=== PATIENT | female | born 1935 | race Caucasian/White ===

== ENCOUNTER → 2017-03-19 | Outpatient (CLI) | payer MEDICARE ==
--- NOTE | 2017-03-19 10:26 | Diagnostic Imaging Report ---
INDICATION: Left rib pain. FINDINGS: Three views of the left ribs do not show any displaced fractures. There are no effusions or pneumothoraces. IMPRESSION: Negative left ribs. Dictated by: Dictated on workstation # [id number]
--- NOTE | 2017-03-19 10:27 | Diagnostic Imaging Report ---
EXAM: Two views of the left hip. INDICATION: Left hip pain. Fall. FINDINGS: There is no fracture or dislocation seen. There is subchondral sclerosis and mild joint space narrowing. Mild osteophyte formation is seen. No radiopaque foreign body. IMPRESSION: Moderate left hip osteoarthritis. Dictated by: Dictated on workstation # [id number]
== END ==
LOC: RAD 10:02
PROVIDERS: ATTEND Family Medicine
DX: S29.9XXA Unspecified injury of thorax, initial encounter (principal); M16.12 Unilateral primary osteoarthritis, left hip; W01.0XXA Fall on same level from slipping, tripping and stumbling without subsequent striking against object, initial encounter; Y99.8 Other external cause status
CPT/HCPCS: 71100; 73502

== ENCOUNTER 2019-12-04 11:38 | Emergency (ER) | payer MEDICARE ==
[~2019-12-04] VITALS: Ht 162 cm; Wt 52.6 kg
[2019-12-04] MEDS ORDERED: AMLOD/BENAZP (12:20)
--- NOTE | 2019-12-04 12:49 | ED Upper Extremity ---
General Chief Complaint: Upper Extremity Stated Complaint: FALL Nursing Triage Note: pt presents to ed with complaints of r shoulder, r arm pain, and mid back pain Nursing Sepsis Screen: No Definite Risk History of Present Illness Date Seen by Provider: Dec 04, 2019 Time Seen by Provider: 12:20 Initial Comments 84 year old female presents after a fall this morning onto her right shoulder and arm. She states that her ankle gives out, on occasion, and causes fall. She had no head injury or loss of consciousness. She is mainly complaining of right proximal shoulder pain and right posterior mid rib pain. She put ice on her shoulder right after the injury, no medication was taken. She has a small superficial abrasion to her right elbow that occurred approximately 3 or 4 days ago when she scratches on a wooden table. She had a tetanus shot in the last 2 years. Onset: this morning Pain/Injury Location: right shoulder, right other (Right posterior ribs) Method of Injury: fell Allergies and Home Medications Allergies Coded Allergies: aspirin (Verified Allergy, Unknown, 12/04/19) Patient Home Medication List Home Medication List Reviewed: Yes Review of Systems Constitutional: no symptoms reported, see HPI Respiratory: see HPI, other (right ribs) Musculoskeletal: see HPI, joint pain (and right shoulder) All Other Systems Reviewed Negative Unless Noted: Yes Past Khzjmss-Dnypxt-Qtcwcn Hx Past Med/Social Hx: Reviewed Nursing Past Med/Soc Hx Patient Social History Alcohol Use: Denies Use Recreational Drug Use: No Smoking Status: Never a Smoker Recent Foreign Travel: No Contact w/Someone Who Travel: No Recent Infectious Disease Expo: No Physical Abuse: No Sexual Abuse: No Mistreated: No Fear: No Physical Exam Vital Signs Vital Signs - First Documented 12/04/19 12:10 Temp 36.8 Pulse 87 Resp 20 B/P (MAP) 162/99 (120) Pulse Ox 98 Capillary Refill : Less Than 3 Seconds Height, Weight, BMI Height: '" Weight: lbs. oz. kg; 20.00 BMI Method: General Appearance: WD/WN, no apparent distress HEENT: PERRL/EOMI, normal ENT inspection, TMs normal, pharynx normal Neck: non-tender, full range of motion, supple, normal inspection Cardiovascular: normal peripheral pulses, regular rate, rhythm, no murmur Respiratory: lungs clear, normal breath sounds, other (tenderness to palpation in the right posterior chest over the mid ribs, no crepitus) Gastrointestinal: normal bowel sounds, non tender, soft Back: normal inspection, no CVA tenderness, no vertebral tenderness Shoulder: asymmetry; No ecchymosis; limited ROM, pain, soft tissue tenderness, swelling Elbow/Forearm: normal inspection, non-tender, no evidence of injury, normal ROM, Right Wrist: Yes normal inspection, Yes non-tender, Yes no evidence of injury, Yes normal ROM Hand: normal inspection, non-tender, no evidence of injury, normal ROM, Right Neurologic/Psychiatric: no motor/sensory deficits, alert, normal mood/affect, oriented x 3 Skin: normal color, warm/dry Progress/Results/Core Measures Results/Orders My Orders Orders - MALU RAGLAND Ribs, Right 2-3 Views (12/04/19 12:25) Shoulder, Right, 3 Views (12/04/19 12:25) Humerus, Right, 2 Views (12/04/19 12:25) Vital Signs/I&O 12/04/19 12:10 Temp 36.8 Pulse 87 Resp 20 B/P (MAP) 162/99 (120) Pulse Ox 98 Blood Pressure Mean: 120 Progress Progress Note : Time: 12:20 Progress Note Patient seen and evaluated, denies need for pain medication. Will obtain x-rays and re-evaluate. 1300 xrays results reviewed. Spoke to Dr. Reyna by phone, agreed with sling and conservative measures. 1320 Sling applied and ice to right shoulder. Discharge instructions and return precautions reviewed with the patient. Spoke to her daughter by phone and informed of findings on x-ray and plan of care. Diagnostic Imaging Diagonstic Imaging: Xray Plain Films/CT/US/NM/MRI: other (humerus) Comments NAME: JERMAINE BRITT [facility] REC#: [id number] PT STATUS: REG ER : 1935 PHYSICIAN: MALU RAGLAND ADMIT DATE: 12/04/19/ER Draft Date of Exam:12/04/19 HUMERUS, RIGHT, 2 VIEWS CLINICAL INDICATION: Patient status post fall with right-sided back pain and right arm pain. EXAMS: 1: X-ray of the right humerus, 3 views. 2: X-ray of the right shoulder, 3 views including scapular Y view. COMPARISON: None. FINDINGS: There is a mildly impacted fracture of the proximal humeral neck with slight anterior apex angulation and roughly 1/2 shaft width of anterior displacement of the distal fracture fragment. There is slight inferior position of the humeral head in relation to the glenoid which may be related to pseudosubluxation from joint effusion. The remainder of the right humerus and right shoulder shows no acute fracture or dislocation. IMPRESSION: 1: X-ray of the right shoulder and right humerus show an impacted displaced fracture of the proximal left humeral neck region. 2: Suspected pseudosubluxation of the right glenohumeral joint which may be related to joint effusion. Dictated on workstation # [id number] Dict: 12/04/19 1249 Trans: 12/04/19 1256 CVB [id number] Interpreted by: MARISSA NIEVES MD Electronically signed by: Reviewed: Reviewed by Sd Diagonstic Imaging: Xray Plain Films/CT/US/NM/MRI: other (right ribs) Comments NAME: JERMAINE BRITT [facility] REC#: [id number] PT STATUS: REG ER : 1935 PHYSICIAN: MALU RAGLAND ADMIT DATE: 12/04/19/ER Signed Date of Exam:12/04/19 RIBS, RIGHT 2-3 VIEWS INDICATION: Right-sided pain after fall. COMPARISON: Right shoulder radiograph performed concurrently. TECHNIQUE: 3 views of the right ribs were obtained. FINDINGS AND IMPRESSION: 1. No right-sided pneumothorax, pleural effusion or pulmonary consolidation. 2. Questionable nondisplaced fractures of the anterior aspect of the right 7th and 8th ribs near the chondral cartilage. 3. Please see right shoulder radiograph report for details of the acute humeral fracture. Dictated by: Dictated on workstation # [id number] Dict: 12/04/19 1248 Trans: 12/04/19 1314 CVB [id number] Interpreted by: YOBANI ANDERSON MD Electronically signed by: YOBANI ANDERSON MD 12/04/19 1314 Diagonstic Imaging: Xray Plain Films/CT/US/NM/MRI: other (shoulder) Comments NAME: LORENZAJERMAINE [facility] REC#: [id number] PT STATUS: REG ER : 1935 PHYSICIAN: MALU RAGLAND ADMIT DATE: 12/04/19/ER Signed Date of Exam:12/04/19 SHOULDER, RIGHT, 3 VIEWS CLINICAL INDICATION: Patient status post fall with right-sided back pain and right arm pain. EXAMS: 1: X-ray of the right humerus, 3 views. 2: X-ray of the right shoulder, 3 views including scapular Y view. COMPARISON: None. FINDINGS: There is a mildly impacted fracture of the proximal humeral neck with slight anterior apex angulation and roughly 1/2 shaft width of anterior displacement of the distal fracture fragment. There is slight inferior position of the humeral head in relation to the glenoid which may be related to pseudosubluxation from joint effusion. The remainder of the right humerus and right shoulder shows no acute fracture or dislocation. IMPRESSION: 1: X-ray of the right shoulder and right humerus show an impacted displaced fracture of the proximal left humeral neck region. 2: Suspected pseudosubluxation of the right glenohumeral joint which may be related to joint effusion. Dictated by: Dictated on workstation # [id number] Dict: 12/04/19 1248 Trans: 12/04/19 1301 [id number] Interpreted by: MARISSA NIEVES MD Electronically signed by: MARISSA NIEVES MD 12/04/19 1301 Reviewed: Reviewed by Me Departure Impression Primary Impression: Right rib fracture Qualified Codes: S22.41XA - Multiple fractures of ribs, right side, initial encounter for closed fracture Additional Impression: Fracture of neck of right humerus Qualified Codes: S42.211A - Unspecified displaced fracture of surgical neck of right humerus, initial encounter for closed fracture Disposition: 01 HOME, SELF-CARE Condition: Improved Departure-Patient Inst. Decision time for Depature: 13:30 Referrals: PASTORA HEWITT DO (PCP/Family) Primary Care Physician Patient Instructions: How to Use a Shoulder Sling, Rib Fracture (DC), Shoulder Fracture (DC) Add. Discharge Instructions: You have an appt with Dr. Chamorro at 11:00 on Wednesday12/11/19. Please arrive at the office at 10:30 for paperwork and followup xrays. Use the sling at all times, may remove to shower and gentle Range of Motion to elbow/hand. You may alternate between Tylenol 650 mg and ibuprofen 600 mg every 4 hours for pain. Use the stronger pain prescription, if this is not controlling your pain. Use ice to your right shoulder for 20 minutes every 2 hours while awake. Warm, moist compressions to right ribs. Cough, turn and deep breathe, 10 times every hour. Follow-up with Dr. Gorman if symptoms are not improving or worsen. Return to emergency department for new, urgent health care needs. All discharge instructions reviewed with patient and/or family. Voiced understanding. Scripts Tramadol HCl (Tramadol HCl) 50 Mg Tablet 50 MG PO Q8H PRN for PAIN, #20 TAB 0 Refills Prov: MALU RAGLAND 12/04/19 Copy Copies To 1: PASTORA HEWITT DO; AUSTEN CHAMORRO MD, AMY ARNP Dec 04, 2019 12:49
--- NOTE | 2019-12-04 12:57 | Diagnostic Imaging Report ---
CLINICAL INDICATION: Patient status post fall with right-sided back pain and right arm pain. EXAMS: 1: X-ray of the right humerus, 3 views. 2: X-ray of the right shoulder, 3 views including scapular Y view. COMPARISON: None. FINDINGS: There is a mildly impacted fracture of the proximal humeral neck with slight anterior apex angulation and roughly 1/2 shaft width of anterior displacement of the distal fracture fragment. There is slight inferior position of the humeral head in relation to the glenoid which may be related to pseudosubluxation from joint effusion. The remainder of the right humerus and right shoulder shows no acute fracture or dislocation. IMPRESSION: 1: X-ray of the right shoulder and right humerus show an impacted displaced fracture of the proximal left humeral neck region. 2: Suspected pseudosubluxation of the right glenohumeral joint which may be related to joint effusion. Dictated by: Dictated on workstation # [id number]
[2019-12-04] MEDS ORDERED: TRM50T PO (13:43)
[2019-12-04 13:44] VITALS: BP 136/76
== END 2019-12-04 13:44 | disposition home or self-care (01) ==
LOC: EDUNIT# 11:38 → ER 11:41
DX: S42.211A Unspecified displaced fracture of surgical neck of right humerus, initial encounter for closed fracture (principal); S22.41XA Multiple fractures of ribs, right side, initial encounter for closed fracture; W19.XXXA Unspecified fall, initial encounter
CPT/HCPCS: 71100; 73030; 73060

== ENCOUNTER → 2019-12-11 | Outpatient (CLI) | payer MEDICARE ==
[~2019-12-11] MED LIST: AMLOD/BENAZP; TRM50T PO
--- NOTE | 2019-12-11 11:18 | Diagnostic Imaging Report ---
HISTORY: Proximal right humerus fracture. TECHNIQUE: Three views of the right shoulder. COMPARISON: 12/04/2019. FINDINGS: Redemonstrated is an impacted, mildly displaced fracture of the right humeral neck. There does appear to be some sclerosis and healing changes. There is mild inferior subluxation of the humeral head. There is cortical irregularity of the glenoid as well. There are moderate degenerative changes in the right acromioclavicular joint; however, the alignment at the undersurface appears normal. There is chronic scarring in the right lung. IMPRESSION: 1. Impacted fracture of the right humeral neck with interval healing changes and stable alignment. 2. Mild inferior subluxation of the right humeral head which may represent joint effusion. 3. Cortical irregularity at the glenoid, concerning for nondisplaced fracture. Dictated by: Dictated on workstation # [id number]
== END ==
LOC: ORTHO 10:47
PROVIDERS: ATTEND Orthopaedic Surgery
DX: S42.201A Unspecified fracture of upper end of right humerus, initial encounter for closed fracture (principal); W19.XXXA Unspecified fall, initial encounter
CPT/HCPCS: 73030

== ENCOUNTER → 2019-12-25 | Outpatient (CLI) | payer MEDICARE ==
--- NOTE | 2019-12-25 10:22 | Diagnostic Imaging Report ---
INDICATION: Humeral fracture followup. TECHNIQUE/COMPARISON: AP and transscapular views of the right shoulder were obtained and compared to 12/11/2019. FINDINGS: The subacute fracture of the humeral head and neck is unchanged in alignment compared to the prior study. There is no dislocation. The AC joint appears intact. IMPRESSION: Stable appearance of the subacute right humeral head and neck fracture without change from 12/11/2019. Dictated by: Dictated on workstation # [id number]
== END ==
LOC: ORTHO 09:43
PROVIDERS: ATTEND Orthopaedic Surgery
DX: S42.221D 2-part displaced fracture of surgical neck of right humerus, subsequent encounter for fracture with routine healing (principal); X58.XXXD Exposure to other specified factors, subsequent encounter
CPT/HCPCS: 73030

== ENCOUNTER → 2020-01-08 | Outpatient (CLI) | payer MEDICARE ==
--- NOTE | 2020-01-08 11:16 | Diagnostic Imaging Report ---
EXAMINATION: Right shoulder radiographs, 2 views. COMPARISON: December 25, 2019. HISTORY: 84-year-old female, followup right proximal humerus fracture. FINDINGS: There is a redemonstrated fracture at the level of the humeral neck. There is some irregularity in the region of the greater tuberosity. The distal fracture fragment appears increasingly anteriorly displaced based on the lateral view assessment. Displacement anteriorly is measured at approximately 7 mm. There is unchanged fracture override. It is difficult to assess humeral head positioning relative to the glenoid although the humeral head appears to be potentially abnormally positioned based on frontal view analysis. The acromioclavicular joint is normally aligned. IMPRESSION: 1. Redemonstrated fracture of the right humeral neck with increasingly anterior displaced distal fracture fragment currently measuring approximately 7 mm. 2. The humeral head alignment relative to the glenoid is not well assessed on this study although is potentially abnormally positioned. This would be better evaluated with CT right shoulder without contrast. 3. Irregularity of the greater tuberosity likely relating to sequela of fracture without clear fracture displacement at this location. Dictated by: Dictated on workstation # [id number]
== END ==
LOC: ORTHO 10:15
PROVIDERS: ATTEND Orthopaedic Surgery
DX: S42.221A 2-part displaced fracture of surgical neck of right humerus, initial encounter for closed fracture (principal); X58.XXXA Exposure to other specified factors, initial encounter
CPT/HCPCS: 73030

== ENCOUNTER → 2020-01-31 | Outpatient (CLI) | payer MEDICARE ==
--- NOTE | 2020-01-31 10:57 | Diagnostic Imaging Report ---
INDICATION: Right humeral fracture AP and transscapular views of the right shoulder are obtained with comparison made to study of 01/08/2020. There is no significant change in overall appearance of proximal right humerus with subacute impacted neck fracture. Fracture line is not well visualized suggesting partial healing. Angulation and degree of displacement have not significantly changed. Glenohumeral joint space is not well evaluated. IMPRESSION: Stable overall appearance of impacted right proximal humeral fracture. No definite dislocation or adverse change is seen. Dictated by: Dictated on workstation # [id number]
== END ==
LOC: ORTHO 10:11
PROVIDERS: ATTEND Orthopaedic Surgery
DX: S42.221D 2-part displaced fracture of surgical neck of right humerus, subsequent encounter for fracture with routine healing (principal); X58.XXXD Exposure to other specified factors, subsequent encounter
CPT/HCPCS: 73030

== ENCOUNTER → 2020-11-04 | Outpatient (CLI) | payer MEDICARE ==
--- NOTE | 2020-11-04 14:53 | Diagnostic Imaging Report ---
INDICATION: Neck pain. EXAMINATION: Cervical spine. FINDINGS: AP and lateral views of the cervical spine show normal vertebral alignment. There is no fracture or prevertebral soft tissue swelling. The disc spaces appear well-preserved. IMPRESSION: Unremarkable cervical spine. Dictated by: Dictated on workstation # [id number]
== END ==
LOC: RAD 12:03
PROVIDERS: ATTEND Family Medicine
DX: M54.2 Cervicalgia (principal)
CPT/HCPCS: 72040

== ENCOUNTER 2020-11-28 09:44 | Outpatient (RCR) | payer MEDICARE ==
[2020-12-02] MEDS ORDERED: AMLO1CAP4 PO (13:19)
[2020-12-02] MEDS ORDERED: ACET325T38 PO (13:19)
[2020-12-04] MEDS ORDERED: PHENYLEPHRINE INJECTION 10 MG in NS (IVPB) 250 ML IV SCH (21:00)
== END 2020-12-10 08:00 | disposition home or self-care (01) ==
PROVIDERS: ATTEND Family Medicine
DX: M54.2 Cervicalgia (principal); R29.898 Other symptoms and signs involving the musculoskeletal system

== ENCOUNTER 2020-11-30 01:18 | Inpatient (IN) | payer MEDICARE ==
[~2020-11-30] VITALS: Ht 165 cm; Wt 57.1 kg
--- NOTE | 2020-11-30 02:04 | ED Respiratory ---
General Chief Complaint: Respiratory Problems Stated Complaint: WEAK,SOB Source: patient, family Exam Limitations: no limitations History of Present Illness Date Seen by Provider: Nov 30, 2020 Time Seen by Provider: 01:47 Initial Comments Patient is an 85-year-old female who presents to the emergency department today with a chief complaint of shortness of breath. Patient's daughter is at the bedside and states that her mother has been short of breath for several days probably at least 2 and she states that she was finally able to convince her to come to the emergency department this evening. She has had a little bit of increased overall weakness. She has not been Covid vaccinated or had a flu vaccine. Patient denies any chronic medical illnesses. She has had no sick contacts. She complains of a little suprapubic tenderness more so on the right of the lower abdomen. She denies dysuria, urgency or frequency. She states that she has not had any nausea, vomiting or dark tarry stools. Her shortness of breath worsened today at about 3 PM. She is not on home oxygen. She denies any chest pain or pressure or tightness. She states she has been so weak that she thought she might fall. Especially when she is bending over. She denies swelling in her lower extremities however on physical exam the patient has 2+ bilateral lower extremity edema. Patient has no history of atrial fibrillation that she is aware of. All other review of systems reviewed and negative except as stated above. Timing/Duration: getting worse (2 to 3 days) Severity: moderate Modifying Factors: Worse With Activity Associated Symptoms: denies symptoms Allergies and Home Medications Allergies Coded Allergies: aspirin (Verified Allergy, Unknown, 12/04/19) Home Medications Tramadol HCl 50 Mg Tablet, 50 MG PO Q8H PRN for PAIN Prescribed by: MALU RAGLAND on 12/04/19 6553 Patient Home Medication List Home Medication List Reviewed: Yes Review of Systems Review of Systems Constitutional: see HPI EENTM: no symptoms reported Respiratory: No cough, No phlegm; short of breath Cardiovascular: no symptoms reported Gastrointestinal: no symptoms reported Genitourinary: no symptoms reported Musculoskeletal: no symptoms reported Skin: no symptoms reported Psychiatric/Neurological: No Symptoms Reported All Other Systems Reviewed Negative Unless Noted: Yes Physical Exam Vital Signs - First Documented 11/30/20 01:28 Temp 36.0 Pulse 111 Resp 24 B/P (MAP) 146/108 (121) Pulse Ox 77 O2 Delivery Room Air Capillary Refill : Height: '" Weight: lbs. oz. kg; 20.00 BMI Method: General Appearance: WD/WN, no apparent distress Eyes: Bilateral Eye Normal Inspection, Bilateral Eye PERRL, Bilateral Eye EOMI HEENT: PERRL/EOMI Neck: full range of motion Respiratory: no respiratory distress, no accessory muscle use, rales, rhonchi (Rhonchi bilateral bases), other (Pectus deformity of the chest wall) Cardiovascular: tachycardia, irregularly irregular Gastrointestinal: soft, tenderness (Very slight tenderness to the right of suprapubic) Extremities: normal range of motion, pedal edema (2+ pedal edema bilateral lower extremities) Neurologic/Psychiatric: alert, normal mood/affect, oriented x 3 Skin: normal color, warm/dry Progress/Results/Core Measures Suspected Sepsis SIRS Temperature: Pulse: Respiratory Rate: Laboratory Tests 11/30/20 02:30: White Blood Count 10.9 Blood Pressure / Mean: Laboratory Tests 11/30/20 02:30: Creatinine 0.57L, Platelet Count 167 Results/Orders Lab Results Laboratory Tests Test 11/30/20 02:30 Range/Units White Blood Count 10.9 4.3-11.0 10^3/uL Red Blood Count 4.45 3.80-5.11 10^6/uL Hemoglobin 13.8 11.5-16.0 g/dL Hematocrit 42 35-52 % Mean Corpuscular Volume 94 80-99 fL Mean Corpuscular Hemoglobin 31 25-34 pg Mean Corpuscular Hemoglobin Concent 33 32-36 g/dL Red Cell Distribution Width 13.8 10.0-14.5 % Platelet Count 167 130-400 10^3/uL Mean Platelet Volume 12.3 H 9.0-12.2 fL Immature Granulocyte % (Auto) 1 % Neutrophils (%) (Auto) 89 H 42-75 % Lymphocytes (%) (Auto) 3 L 12-44 % Monocytes (%) (Auto) 8 0-12 % Eosinophils (%) (Auto) 0 0-10 % Basophils (%) (Auto) 0 0-10 % Neutrophils # (Auto) 9.6 H 1.8-7.8 10^3/uL Lymphocytes # (Auto) 0.3 L 1.0-4.0 10^3/uL Monocytes # (Auto) 0.9 0.0-1.0 10^3/uL Eosinophils # (Auto) 0.0 0.0-0.3 10^3/uL Basophils # (Auto) 0.0 0.0-0.1 10^3/uL Immature Granulocyte # (Auto) 0.1 0.0-0.1 10^3/uL Sodium Level 128 L 135-145 MMOL/L Potassium Level 4.0 3.6-5.0 MMOL/L Chloride Level 91 L 98-107 MMOL/L Carbon Dioxide Level 26 21-32 MMOL/L Anion Gap 11 5-14 MMOL/L Blood Urea Nitrogen 7 7-18 MG/DL Creatinine 0.57 L 0.60-1.30 MG/DL Estimat Glomerular Filtration Rate > 60 BUN/Creatinine Ratio 12 Glucose Level 171 H 70-105 MG/DL Calcium Level 8.7 8.5-10.1 MG/DL Total Creatine Kinase 115 29-168 U/L Creatine Kinase MB 8.6 *H <6.6 NG/ML Troponin I 0.039 H <0.028 NG/ML B-Type Natriuretic Peptide 1129.4 H <100.0 PG/ML My Orders Orders - ELIZABETH DALAL MD Ed Iv/Invasive Line Start (11/30/20 02:05) BNP (11/30/20 02:05) Cbc With Automated Diff (11/30/20 02:05) Basic Metabolic Panel (11/30/20 02:05) Troponin I (11/30/20 02:05) Creatine Kinase (11/30/20 02:05) Creatine Kinase Mb (11/30/20 02:05) Ua Culture If Indicated (11/30/20 02:05) Chest 1 View, Ap/Pa Only (11/30/20 02:05) Ekg Tracing (11/30/20 02:05) Manual Differential (11/30/20 02:30) Ekg Tracing (11/30/20 02:57) Furosemide Injection (Lasix Injection) (11/30/20 03:30) Vital Signs/I&O 11/30/20 01:28 Temp 36.0 Pulse 111 Resp 24 B/P (MAP) 146/108 (121) Pulse Ox 77 O2 Delivery Room Air Capillary Refill : ECG Initial ECG Impression Date: Nov 30, 2020 Initial ECG Impression Time: 02:12 Initial ECG Rate: 120 Initial ECG Rhythm: A Fib/Flutter Initial ECG Impression: Atrial Fibrillation w/RVR Comment Ectopy noted with PVCs and supraventricular complexes, LVH is noted, prolonged QTC at 515 EKG : EKG Time: 02:59 Rate: 95 Rhythm: Intervals: QT (496) ECG Comparisson: Unchanged ECG Impression: Atrial Fibrillation (Wandering atrial pacemaker versus sinus rhythm with multiple PVCs and supraventricular premature contractions) Diagnostic Imaging Diagonstic Imaging: Xray Plain Films/CT/US/NM/MRI: chest Comments Significant cardiomegaly noted on chest x-ray with increased pulmonary vascular congestion Critical Care Note Critical Care Start Time: 01:47 Stop Time: 02:47 Total Time (minutes) 1 hour critical care time in the evaluation and management of this patient with hypoxia, tachycardia, new onset congestive heart failure. Time includes review and interpretation of laboratory studies. Management of congestive failure with Lasix. Management of hypoxia with oxygen supplementation. Discussion with hospitalist attending as well as cardiology. Departure Communication (Admissions) Time/Spoke to Admitting Phy: 03:[address] Maya who accepts the patient for admission Time/Spoke to Consulting Phy: 03:[address] Ward who is agreeable with 20 mg of Lasix and would like an echocardiogram done this morning Impression Primary Impression: New onset of congestive heart failure Additional Impression: Elevated troponin Disposition: 09 ADMITTED INPATIENT Condition: Stable Admissions Decision to Admit Reason: Admit from ER (General) Decision to Admit/Date: Nov 30, 2020 Time/Decision to Admit Time: 03:39 Departure-Patient Inst. Referrals: PASTORA HEWITT DO (PCP/Family) Primary Care Physician Copy Copies To 1: PASTORA HEWITT KATHRYN M MD Nov 30, 2020 02:04
[2020-11-30 02:45] LABS: BASOPHILS % (AUTO) 0 % (0-10); EOSINOPHILS % (AUTO) 0 % (0-10); HEMATOCRIT 42 % (35-52); HEMOGLOBIN 13.8 g/dL (11.5-16.0); LYMPHOCYTES # (AUTO) 0.3 10^3/uL (1.0-4.0); LYMPHOCYTES % (AUTO) 3 % (12-44); MEAN CORPUSCULAR HEMOGLOBIN 31 pg (25-34); MEAN CORPUSCULAR HGB CONC 33 g/dL (32-36); MEAN CORPUSCULAR VOLUME 94 fL (80-99); MEAN PLATELET VOLUME 12.3 fL (9.0-12.2); MONOCYTES # (AUTO) 0.9 10^3/uL (0.0-1.0); MONOCYTES % (AUTO) 8 % (0-12); NEUTROPHILS # (AUTO) 9.6 10^3/uL (1.8-7.8); NEUTROPHILS % (AUTO) 89 % (42-75); PLATELET COUNT 167 10^3/uL (130-400); WHITE BLOOD COUNT 10.9 10^3/uL (4.3-11.0)
[2020-11-30 03:01] LABS: CHLORIDE 91 MMOL/L (98-107); SODIUM 128 MMOL/L (135-145)
[2020-11-30 03:02] LABS: CALCIUM 8.7 MG/DL (8.5-10.1)
[2020-11-30 03:03] LABS: GLUCOSE 171 MG/DL (70-105)
[2020-11-30 03:04] LABS: CARBON DIOXIDE 26 MMOL/L (21-32)
[2020-11-30 03:07] LABS: CREATININE SERUM 0.57 MG/DL (0.60-1.30); GFR ESTIMATED > 60
[2020-11-30 03:08] LABS: BUN/CREATININE RATIO 12
[2020-11-30 03:09] LABS: CREATINE KINASE 115 U/L (29-168)
[2020-11-30 03:24] LABS: CREATINE KINASE MB 8.6 NG/ML (<6.6)
[2020-11-30] MEDS ORDERED: FUROSEMIDE 40 MG/4 ML INJ (LASIX) IVP ONE (03:30)
[2020-11-30 03:39] LABS: ANISOCYTOSIS SLIGHT; BAND NEUTROPHILS 2 %; LYMPHOCYTES % (MANUAL) 7 %; MICROCYTOSIS SLIGHT; MONOCYTES % (MANUAL) 6 %; NEUTROPHILS % (MANUAL) 85 %
[2020-11-30 04:41] LABS: BILIRUBIN,URINE NEGATIVE (NEGATIVE); CLARITY,URINE SL CLOUDY; COLOR,URINE YELLOW; GLUCOSE, URINE (UA) 1+ (NEGATIVE); KETONES,URINE NEGATIVE (NEGATIVE); LEUKOCYTE ESTERASE ,URINE TRACE (NEGATIVE); NITRITE,URINE NEGATIVE (NEGATIVE); PROTEIN,URINE NEGATIVE (NEGATIVE)
[2020-11-30 04:53] LABS: BACTERIA,URINE NEGATIVE /HPF; HYALINE CASTS, URINE RARE /LPF; RBC,URINE 0-2 /HPF
[2020-11-30 06:06] VITALS: BP 146/108
--- NOTE | 2020-11-30 08:13 | Diagnostic Imaging Report ---
INDICATION: Shortness of air, cough and congestion for 3 days. COMPARISON STUDIES: Rib films from 12/04/2019. FINDINGS: Portable upright view of the chest demonstrates severe cardiomegaly with pulmonary congestion and some edema. No significant effusions are seen. IMPRESSION: Congestive heart failure. Dictated by: Dictated on workstation # [id number]
[2020-11-30] MEDS: FUROSEMIDE 40 MG/4 ML INJ (LASIX) IVP SCH (08:18)
--- NOTE | 2020-11-30 11:25 | History & Physical-Hospitalist ---
History of Present Illness HPI/Chief Complaint Pt is an 85yoCF with a PMH of HTN who presented to the ER due to shortness of breath. She states she has been short of breath for a while but tries to not go to the doctor. Last night her daughter visited her and noticed how short of breath she was and brought her to the ER for evlauation. She was found to be quite hypoxic on arrivla with saats in the 70s. She was found to be in heart failure on CXR but has no past medical history of this. She was admitted to the ICU and was given lasix and states she is feeling much better today. She states she has been peeing a lot and feels better. 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 She is quite thin and she states she last 30 lbs a few years ago and has not been able to put it back on. Source: patient Date Seen 11/30/20 Time Seen by a Provider: 11:21 Attending Physician Minerva Yusuf MD PCP Guero Vilchis DO Referring Physician Date of Admission Nov 30, 2020 at 03:29 Home Medications & Allergies Home Medications Reviewed patient Home Medication Reconciliation performed by pharmacy medication reconciliations biomedical equipment technician and/or nursing. Patients Allergies have been reviewed. Allergies Allergies Coded Allergies aspirin (Verified Allergy, Unknown, 12/04/19) Past Vofgwgz-Seynbv-Bnnvlm Hx Past Med/Social Hx: Reviewed Nursing Past Med/Soc Hx Patient Social History Employed/Student: retired Alcohol Use: Denies Use Recreational Drug Use: No Recent Foreign Travel: No Contact w/other who traveled: No Recent Hopitalizations: No Recent Infectious Disease Expo: No Immunizations Up To Date Tetanus Booster (TDap): Unknown Pediatric: No Seasonal Allergies Seasonal Allergies: No Past Medical History Cardiac: Hypertension History of Blood Disorders: No Family History Reviewed Nursing Family Hx Review of Systems Constitutional: No chills, No fever Respiratory: cough, short of breath Cardiovascular: No chest pain; edema; No Hx of Intervention, No palpitations Gastrointestinal: No abdominal pain, No constipation, No diarrhea, No nausea, No vomiting Genitourinary: No discharge, No dysuria; frequency (since lasix ) Musculoskeletal: no symptoms reported Skin: no symptoms reported Psychiatric/Neurological: No Symptoms Reported Physical Exam Physical Exam Vital Signs Vital Signs - First Documented 11/30/20 11/30/20 11/30/20 01:28 05:15 06:06 Temp 36.0 Pulse 111 Resp 24 B/P (MAP) 146/108 (121) Pulse Ox 77 O2 Delivery Room Air O2 Flow Rate 4.00 FiO2 28 Capillary Refill : Less Than 3 Seconds Height, Weight, BMI Height: '" Weight: lbs. oz. kg; 18.36 BMI Method: General Appearance: No Apparent Distress, Thin (frail and cachetic) HEENT: PERRL/EOMI, Moist Mucous Membranes; No Scleral Icterus (L), No Scleral Icterus (R) Neck: Normal Inspection, Supple Respiratory: No Accessory Muscle Use, Decreased Breath Sounds; No Wheezing; Other (on 2lpm) Cardiovascular: Regular Rate, Rhythm, No Murmur Gastrointestinal: Normal Bowel Sounds, Non Tender, Soft Extremity: Normal Capillary Refill, No Calf Tenderness, Swelling (2+ pitting edema to just below knees) Neurologic/Psychiatric: Alert, Oriented x3, Normal Mood/Affect Skin: Normal Color, Warm/Dry Results Results/Procedures Labs Laboratory Tests 11/30/20 02:30 Patient resulted labs reviewed. Imaging: Reviewed Imaging Report Imaging [facility] [place] NAME: JERMAINE [facility] REC#: [id number] PT STATUS: ADM IN : 1935 PHYSICIAN: ELIZABETH DALAL MD ADMIT DATE: 11/30/20/ICU Signed Date of Exam:11/30/20 CHEST 1 VIEW, AP/PA ONLY INDICATION: Shortness of air, cough and congestion for 3 days. COMPARISON STUDIES: Rib films from 12/04/2019. FINDINGS: Portable upright view of the chest demonstrates severe cardiomegaly with pulmonary congestion and some edema. No significant effusions are seen. IMPRESSION: Congestive heart failure. Dictated by: Dictated on workstation # [id number] Dict: 11/30/20 0809 Trans: 11/30/20 0949 [facility] [id number] Interpreted by: ALEXANDRA DELGADO MD Electronically signed by: ALEXANDRA DELGADO MD 11/30/20 0949 Assessment/Plan Admission Diagnosis Acute hypoxic respiratory failure Acutely decompensated heart failure HTN new onset atrial fibrillation NSTEMI- Type II Cardiology consulted I titrated down to 1 lpm NC Echo ordered Continue lasix Monitor on telemetry ?rose's palsy Reports "left cheek fell and swelling" since last week, saw Dr Vilchis who recommended "exercise" Hardly noticeable asymetric features OT per patient request DVT ppx: Lovenox Admission Status: Inpatient Order (span 2 midnights) Reason for Inpatient Admission: see above Diagnosis/Problems Diagnosis/Problems (1) Acute respiratory failure Qualifiers: Respiratory failure complication: hypoxia Qualified Codes: J96.01 - Acute respiratory failure with hypoxia (2) Essential (primary) hypertension (3) NSTEMI (non-ST elevated myocardial infarction) (4) Atrial fibrillation Qualifiers: Atrial fibrillation type: paroxysmal Qualified Codes: I48.0 - Paroxysmal atrial fibrillation (5) Cachexia (6) New onset of congestive heart failure Status: Acute MINERVA YUSUF MD Nov 30, 2020 11:25
--- NOTE | 2020-11-30 11:52 | Physical Therapy Evaluation ---
PT Evaluation-General Medical Diagnosis Admission Date Nov 30, 2020 at 03:29 Medical Diagnosis: Elevated troponin I Onset Date: Nov 30, 2020 Therapy Diagnosis Therapy Diagnosis: Declined mobility Precautions Precautions/Isolations: Fall Prevention, Standard Precautions Weight Bear Status Right Lower Extremity: Right Weight Bearing/Tolerated Left Lower Extremity: Left Weight Bearing/Tolerated Referral Physician: Dr. Yusuf Reason for Referral: Evaluation/Treatment Medical History Additional Medical History Scoliosis with severe kyphosis Current History Pt admitted through ED due to dyspnea and elevated troponin I. Reviewed History: Yes Social History Home: Single Level Current Living Status: Children Entry Into Home: Stairs Without Railing PT Steps Into Home: 3 Prior Prior Level of Function SCALE: Activities may be completed with or without assistive devices. 6-Gtcsctfrsm-mbgnbjv completes the activity by him/herself with no assistance from a helper. 5-Set-up or Clean-up Assistance-helper sets up or cleans up; patient completes activity. Patterson assists only prior to or following the activity. 4-Supervision or Touching Assistance-helper provides verbal cues and/or touching/steadying and/or contact guard assistance as patient completes activity. Assistance may be provided throughout the activity or intermittently. 3-Partial/Moderate Assistance-helper does LESS THAN HALF the effort. Patterson lifts, holds or supports trunk or limbs, but provides less than half the effort. 2-Substantial/Maximal Assistance-helper does MORE THAN HALF the effort. Patterson lifts or holds trunk or limbs and provides more than half the effort. 4-Rmzjdqwcw-zhzzxt does ALL the effort. Patient does none of the effort to complete the activity. Or, the assistance of 2 or more helpers is required for the patient to complete the activity. If activity was not attempted, code reason: 7-Patient Refused. 9-Not Applicable-not attempted and the patient did not perform the activity before the current illness, exacerbation or injury. 10-Not Attempted due to Environmental Limitations-(lack of equipment, weather restraints, etc.). 88-Not Attempted due to Medical Conditions or Safety Concerns. Bed Mobility: 6 Transfers (B,C,W/C): 6 Gait: 6 Stairs: 6 Indoor Mobility (Ambulation): Independent Stairs: Independent Prior Devices Use: Walker PT Evaluation-Current Subjective No pain reported. She notes that she has been working with PT on cervical and thoracic postural training. Pt/Family Goals Return home. Objective Patient Orientation: Person, Place, Time, Situation Attachments: Oxygen ROM/Strength ROM Upper Extremities WFL ROM Lower Extremities WFL Strength Upper Extremities WFL Strength Lower Extremities WFL Neuromuscular (Tone, Coordination, Reflexes) Intact (B) LE sensation and reflexes. Sensory Vision: Functional Hearing: Functional Sensation Right Upper Extremit: Intact Sensation Left Upper Extremity: Intact Sensation Right Lower Extremit: Intact Sensation Left Lower Extremity: Intact Transfers Roll Left to Right (QC): 5 Sit to Lying (QC): 5 Lying to Sitting/Side of Bed(Q: 5 Sit to Stand (QC): 5 Chair/Rnv-fc-Zilyo Xfer(QC): 5 Toilet Transfer (QC): 5 Gait Does the Patient Walk?: Yes Mode of Locomotion: Walk Anticipated Mode of Locomotion: Walk Walk 10 feet (QC): 5 Distance: 40ft Gait Assistive Device: FWW Wheelchair Training Does the Pt Use a Wheelchair?: No Balance Sitting Static: Normal Sitting Dynamic: Good Standing Static: Normal Standing Dynamic: Good Assessment/Needs Pt was able to safely ambulate and transfer to/from toilet with contact assistance. She is mostly limited by telemetry and oxygen. Rehab Potential: Good PT Retirement Goals Radioactive Waste Disposal Dispatcher Goals PT Radioactive Waste Disposal Dispatcher Goals Time Frame: Dec 14, 2020 Roll Left & Right (QC): 6 Sit to Lying (QC): 6 Lying-Sitting on Side/Bed(QC): 6 Sit to Stand (QC): 6 Chair/Dsk-az-Leqff Xfer(QC): 6 Toilet Transfer (QC): 6 Car Transfer (QC): 6 Does the Patient Walk: Yes Walk 10 feet (QC): 6 Walk 50ft with 2 Turns (QC): 6 Walk 150 ft (QC): 6 Walking 10ft on Uneven Surface: 6 4 Steps (QC): 6 Picking up an Object (QC): 6 Does the Pt use WC or Scooter?: No PT Plan Problem List Problem List: Functional Strength, Safety, Gait, Transfer Treatment/Plan Treatment Plan: Continue Plan of Care Treatment Plan: Concurrent Therapy, Functional Activity Kylah, Functional Strength, Gait, Therapeutic Exercise, Transfers Treatment Duration: Dec 14, 2020 Frequency: 6 times per week Estimated Hrs Per Day: .25 hour per day Patient and/or Family Agrees t: Yes Time/GCodes Time In: 1120 Time Out: 1145 Total Billed Treatment Time: 25 Total Billed Treatment 1, [facility] 25 YONG LANDEROS PT Nov 30, 2020 11:52
[2020-11-30] MEDS ORDERED: MELATONIN 3 MG TABLET PO PRN (14:30)
[2020-11-30] MEDS ORDERED: ANTACID SUSP 30 ML UDC (MYLANTA) PO PRN (14:30)
[2020-11-30] MEDS ORDERED: MILK OF MAGNESIA 400 MG/5 ML 30 ML UDC PO PRN (14:30)
[2020-11-30] MEDS ORDERED: BENZONATATE 100 MG (TESSALON) CAPSULE PO PRN (14:30)
[2020-11-30] MEDS ORDERED: ONDANSETRON 4 MG/2 ML (SDV) Z0FRAN IV PRN (14:30)
[2020-11-30] MEDS: ENOXAPARIN 300 MG/3 ML (LOVENOX) MULTI-DOSE VIAL SQ SCH (15:26)
[2020-11-30 17:35] VITALS: BP 104/65
[2020-11-30 20:38] VITALS: BP 115/84
--- NOTE | 2020-11-30 20:40 | Consultation-Cardiology ---
HPI-Cardiology Cardiology Consultation: Date of Consultation 11/30/20 Date of Admission Attending Physician Susana Yusuf MD Admitting Physician Guero Vilchis DO Consulting Physician José Miguel LAST MD HPI: Time Seen by a Provider: 15:45 Chief Complaint: shortness of breath This is a 85 year old lady with h/o HTN who presents for shortness of breath. She was found to be hypoxic in the ER. CXR showed possible CHF. She was given lasix and admitted. She feels better when I saw her. She denies smoking. Review of Systems-Cardiology Review of Systems Constitutional: As described under HPI; No As described under HPI, No no symptoms reported, No chills, No fever, No lightheadedness Eyes: No As described under HPI, No no symptoms reported, No blindness, No blurred vision, No contact lenses, No drainage, No decreased acuity, No foreign body sensation, No pain, No vision change Ears/Nose/Throat: No As described under HPI, No no symptoms reported, No chronic hearing loss, No ear discharge, No ear pain, No nasal drainage, No ulcerations Respiratory: No no symptoms reported; As described under HPI; No As described under HPI, No cough; orthopnea; No shortness of breath, No SOB with excertion Cardiovascular: No no symptoms reported; As described under HPI; No As described under HPI, No chest pain, No edema, No irregular heart rate, No ligh theadedness, No palpitations Gastrointestinal: No no symptoms reported, No As described under HPI, No abdo men distended, No abdominal pain, No blood streaked bowels, No constipation, No diarrhea, No nausea, No vomiting, No stool coloration changes Genitourinary: No As described under HPI, No burning, No dysuria, No discharge, No frequency, No flank pain, No hematuria, No urgency : Yes : No Skin: No rash, No skin related problems, No ulcerations Psychiatric/Neurological: No anxiety, No depression, No seizure, No focal weakness, No syncope Hematologic: No bleeding abnormalities All Other Systems Reviewed Negative Unless Noted: Yes OPS-Qevpvz-Uetvjf Hx Patient Social History Employed/Student: retired Have you traveled recently?: No Immunizations Up To Date Tetanus Booster (TDap): Unknown Past Medical History PMH As described under Assessment. Allergies and Home Medications Allergies Coded Allergies: aspirin (Verified Allergy, Unknown, 12/04/19) Home Medications Tramadol HCl 50 Mg Tablet, 50 MG PO Q8H PRN for PAIN Prescribed by: MALU RAGLAND on 12/04/19 3034 Patient Home Medication List Home Medication List Reviewed: Yes Physical Exam-Cardiology Physical Exam Vital Signs/I&O 12/01/20 12/01/20 12/01/20 12/01/20 07:57 09:00 09:00 09:03 Temp 35.7 Pulse 77 78 Resp 16 27 B/P (MAP) 115/73 (87) 91/72 (78) Pulse Ox 95 95 96 O2 Delivery Nasal Cannula NIV Bilevel NIV Bilevel NIV Bilevel O2 Flow Rate 5.00 100.00 60.00 FiO2 60 12/01/20 12/01/20 12/01/20 12/01/20 09:04 09:45 10:00 10:00 Temp 37.2 36.8 Pulse 78 73 Resp 15 14 B/P (MAP) 96/59 (71) Pulse Ox 98 99 O2 Delivery NIV Bilevel O2 Flow Rate 60.00 60.00 12/01/20 12/01/20 12/01/20 12/01/20 10:15 11:00 11:45 12:00 Temp 36.3 Pulse 70 69 90 Resp 16 14 24 B/P (MAP) 85/59 (68) 95/64 (74) Pulse Ox 100 100 98 O2 Delivery NIV Bilevel NIV Bilevel Mechanical Ventilator O2 Flow Rate 60.00 60.00 FiO2 50 50 12/01/20 12/01/20 12/01/20 12/01/20 12:19 12:24 13:00 13:00 Pulse 122 62 96 Resp 24 23 B/P (MAP) 128/72 (90) 101/43 94/46 (62) Pulse Ox 100 100 O2 Delivery Mechanical Ventilator Mechanical Ventilator O2 Flow Rate 50.00 50.00 12/01/20 12/01/20 12/01/20 12/01/20 13:55 14:00 15:00 15:43 Temp 37.4 Pulse 83 60 58 Resp 24 23 24 B/P (MAP) 88/47 (61) 90/47 (61) Pulse Ox 100 100 100 O2 Delivery Mechanical Ventilator Mechanical Ventilator O2 Flow Rate 50.00 50.00 FiO2 50 3/28/12/01/20 12/01/20 12/01/20 16:00 16:00 17:00 18:00 Pulse 67 71 73 Resp 24 15 23 B/P (MAP) 119/55 (76) 106/53 (70) 106/50 (68) Pulse Ox 99 98 95 100 O2 Delivery Mechanical Ventilator Mechanical Ventilator Mechanical Ventilator Mechanical Ventilator O2 Flow Rate 50.00 50.00 50.00 FiO2 50 12/01/20 18:36 Pulse 65 Resp 24 Pulse Ox 98 FiO2 50 12/01/20 00:00 Intake Total 750 ml Output Total 550 ml Balance 200 ml Capillary Refill : Less Than 3 SecondsLess Than 3 Seconds Constitutional: appears stated age, AAO x 3; No apparent distress; well- developed, well-nourished HEENT: PERRL; No discharge; hearing is well preserved, oral hygience is good; No ulceration, No xanthelasmas are seen Neck: No carotid bruit; carotid pulses are 2 + bilaterally Respiratory: crackles Cardiovascular: irregularly irregular, S1 and S2, systolic murmur Gastrointestinal: soft; No spleenomegaly Rectal: deferred Extremities: pedal edema; No clubbing, No cyanosis, No significant edema Neurologic/Psychiatric: no motor/sensory deficits, alert, normal mood/affect, oriented x 3, power is 5/5 both on sides Skin: No rash, No ulcerations Data Review Labs Laboratory Tests 12/01/20 04:38: White Blood Count 9.0, Red Blood Count 4.34, Hemoglobin 13.5, Hematocrit 42, Mean Corpuscular Volume 96, Mean Corpuscular Hemoglobin 31, Mean Corpuscular Hemoglobin Concent 32, Red Cell Distribution Width 13.8, Platelet Count 153, Mean Platelet Volume 12.6H, Immature Granulocyte % (Auto) 0, Neutrophils (%) (Auto) 81H, Lymphocytes (%) (Auto) 7L, Monocytes (%) (Auto) 11, Eosinophils (%) (Auto) 0, Basophils (%) (Auto) 0, Neutrophils # (Auto) 7.3, Lymphocytes # (Auto) 0.6L, Monocytes # (Auto) 1.0, Eosinophils # (Auto) 0.0, Basophils # (Auto) 0.0, Immature Granulocyte # (Auto) 0.0, D-Dimer 0.53H, Sodium Level 130L, Potassium Level 4.0, Chloride Level 89L, Carbon Dioxide Level 30, Anion Gap 11, Blood Urea Nitrogen 9, Creatinine 0.59L, Estimat Glomerular Filtration Rate > 60, BUN/Creatinine Ratio 15, Glucose Level 108H, Calcium Level 9.0, Phosphorus Level 3.9, Magnesium Level 2.1, Troponin I 0.116H 12/01/20 08:28: Glucometer 123H 12/01/20 08:30: Urine Color YELLOW, Urine Clarity CLEAR, Urine pH 6.0, Urine Specific [place] >=1.030, Urine Protein 1+H, Urine Glucose (UA) NEGATIVE, Urine Ketones NEGATIVE, Urine Nitrite NEGATIVE, Urine Bilirubin NEGATIVE, Urine Urobilinogen 2.0, Urine Leukocyte Esterase 1+H, Urine RBC (Auto) TRACE-I, Urine RBC 5-10H, Urine WBC 50- 100H, Urine Crystals NONE, Urine Bacteria FEWH, Urine Casts NONE, Urine Mucus MODERATEH, Urine Culture Indicated YES, Blood Gas Puncture Site RT RADIAL, Blood Gas Patient Temperature 36.7, Arterial Blood pH 7.23*L, Arterial Blood Partial Pressure CO2 91*H, Arterial Blood Partial Pressure O2 52L, Arterial Blood HCO3 37H, Arterial Blood Total CO2 39.5H, Arterial Blood Oxygen Saturation 74L, Arterial Blood Base Excess 9.2H, Trever Test YES-POS, Blood Gas Ventilator Setting NO, Blood Gas Inspired Oxygen UNKNOWN 12/01/20 09:45: Blood Gas Puncture Site LT RADIAL, Blood Gas Patient Temperature 37.2, Arterial Blood pH 7.23*L, Arterial Blood Partial Pressure CO2 94*H, Arterial Blood Partial Pressure O2 103H, Arterial Blood HCO3 38H, Arterial Blood Total CO2 40.8H, Arterial Blood Oxygen Saturation 97, Arterial Blood Base Excess 10.4H, Trever Test YES-POS, Blood Gas Ventilator Setting NO, Blood Gas Inspired Oxygen 60% BIPAP 12/01/20 10:55: Blood Gas Puncture Site RT RADIAL, Blood Gas Patient Temperature 36.8, Arterial Blood pH 7.22*L, Arterial Blood Partial Pressure CO2 98*H, Arterial Blood Partial Pressure O2 123H, Arterial Blood HCO3 39H, Arterial Blood Total CO2 42.2H, Arterial Blood Oxygen Saturation 98, Arterial Blood Base Excess 11.4H, Trever Test YES-POS, Blood Gas Ventilator Setting NO, Blood Gas Inspired Oxygen 60% BIPAP 12/01/20 12:06: Lactic Acid Level 0.61 12/01/20 14:15: Blood Gas Puncture Site LT RADIAL, Blood Gas Patient Temperature 36.4, Arterial Blood pH 7.57H, Arterial Blood Partial Pressure CO2 35, Arterial Blood Partial Pressure O2 84, Arterial Blood HCO3 33H, Arterial Blood Total CO2 33.8H, A rterial Blood Oxygen Saturation 98, Arterial Blood Base Excess 9.7H, Trever Test YES-POS, Blood Gas Ventilator Setting YES, Blood Gas Inspired Oxygen 50% 12/01/20 17:23: Glucometer 57*L 12/01/20 17:30: Glucometer 57*L Microbiology 11/30/20 MRSA Screen - Final, Complete MRSA not isolated A/P-Cardiology Assessment/Admission Diagnosis shortness of breath, history of CHF, Mild elevation of troponin, AF, systolic murmur Plan iv lasix echocardiogram serial troponin, likely troponin leak associated with CHF. Thank you for your consultation. Please call me if you have any questions. Adriano Last MD, FACP, FACC, FSCAI, FHRS, CCDS Interventional Cardiology Cardiac Electrophysiology Vascular Medicine and Endovascular Interventions José Miguel LAST MD Nov 30, 2020 20:40
[2020-11-30 23:25] VITALS: BP 132/87
[2020-12-01] VITALS (22 sets, daily range): BP systolic 81–136; BP diastolic 43–83
[2020-12-01] MEDS: ENOXAPARIN 300 MG/3 ML (LOVENOX) MULTI-DOSE VIAL SQ SCH ×3 (04:18→21:15)
[2020-12-01] MEDS: ACETAMINOPHEN 325 MG TABLET PO PRN (04:58)
[2020-12-01 05:11] LABS: BASOPHILS % (AUTO) 0 % (0-10); EOSINOPHILS % (AUTO) 0 % (0-10); HEMATOCRIT 42 % (35-52); HEMOGLOBIN 13.5 g/dL (11.5-16.0); LYMPHOCYTES # (AUTO) 0.6 10^3/uL (1.0-4.0); LYMPHOCYTES % (AUTO) 7 % (12-44); MEAN CORPUSCULAR HEMOGLOBIN 31 pg (25-34); MEAN CORPUSCULAR HGB CONC 32 g/dL (32-36); MEAN CORPUSCULAR VOLUME 96 fL (80-99); MEAN PLATELET VOLUME 12.6 fL (9.0-12.2); MONOCYTES % (AUTO) 11 % (0-12); NEUTROPHILS # (AUTO) 7.3 10^3/uL (1.8-7.8); NEUTROPHILS % (AUTO) 81 % (42-75); PLATELET COUNT 153 10^3/uL (130-400)
[2020-12-01 05:24] LABS: CHLORIDE 89 MMOL/L (98-107); SODIUM 130 MMOL/L (135-145)
[2020-12-01 05:26] LABS: GLUCOSE 108 MG/DL (70-105)
[2020-12-01 05:27] LABS: CARBON DIOXIDE 30 MMOL/L (21-32)
[2020-12-01 05:29] LABS: PHOSPHORUS 3.9 MG/DL (2.3-4.7)
[2020-12-01 05:30] LABS: BUN/CREATININE RATIO 15; CREATININE SERUM 0.59 MG/DL (0.60-1.30); GFR ESTIMATED > 60
[2020-12-01 05:32] LABS: MAGNESIUM 2.1 MG/DL (1.6-2.4)
--- NOTE | 2020-12-01 08:34 | Diagnostic Imaging Report ---
INDICATION: Stroke, mental status changes COMPARISON STUDY: Chest from yesterday. FINDINGS: A frontal view of the chest demonstrates stable cardiomegaly with increasing pulmonary congestion. Fluid is now seen along the right lateral chest wall. IMPRESSION: Worsening congestive heart failure. Dictated by: Dictated on workstation # [id number]
--- NOTE | 2020-12-01 08:35 | Diagnostic Imaging Report ---
PROCEDURE: CT head wo r/o stroke. TECHNIQUE: Multiple contiguous axial images were obtained through the brain without the use of intravenous contrast. Auto Exposure Controls were utilized during the CT exam to meet ALARA standards for radiation dose reduction. INDICATION: Mental status change, patient unable hold still for exam. COMPARISON STUDIES None FINDINGS: Noncontrast CT scan of head demonstrates mass effect, midline shift, hemorrhage or extra-axial fluid collections. Mild central and cortical atrophy is present. There is moderate severe white matter changes. Osseous structures appear normal. IMPRESSION: There are moderate to severe white matter changes with mild diffuse atrophy. No focal areas of ischemia are present. No acute findings are present. Dictated by: Dictated on workstation # [id number]
[2020-12-01 08:41] LABS: ABG BASE EXCESS 9.2 MMOL/L (-2.5-2.5); ABG OXYGEN SATURATION 74 % (94-100); ABG PO2 52 MMHG (79-93); ABG TCO2 39.5 MMOL/L (21.0-31.0); BILIRUBIN,URINE NEGATIVE (NEGATIVE); CLARITY,URINE CLEAR; COLOR,URINE YELLOW; GLUCOSE, URINE (UA) NEGATIVE (NEGATIVE); KETONES,URINE NEGATIVE (NEGATIVE); LEUKOCYTE ESTERASE ,URINE 1+ (NEGATIVE); NITRITE,URINE NEGATIVE (NEGATIVE); PROTEIN,URINE 1+ (NEGATIVE)
--- NOTE | 2020-12-01 08:42 | Progress Note - Hospitalist ---
Subjective HPI/CC On Admission Date Seen by Provider: Dec 01, 2020 Time Seen by Provider: 08:37 Pt is an 85yoCF with a PMH of HTN who presented to the ER due to shortness of breath. She states she has been short of breath for a while but tries to not go to the doctor. Last night her daughter visited her and noticed how short of key ath she was and brought her to the ER for evlauation. She was found to be quite hypoxic on arrivla with saats in the 70s. She was found to be in heart failure on CXR but has no past medical history of this. She was admitted to the ICU and was given lasix and states she is feeling much better today. She states she has been peeing a lot and feels better. 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 She is quite thin and she states she last 30 lbs a few years ago and has not been able to put it back on. Subjective/Events-last exam Called to bedside about change in mentation. CODE stroke called and pt in CT scan on my arrival so I examined her there. She was moving all extremities though as she was fighting against transfer to the CT bed. She was clearly able to speak as well stating "help me. Stop this." though much drowsier than yesterday. I returned to her room and updated her daughter on low likelihood of acute CVA and likely metabolic issues. I did call and speak with Dr Benedict at [facility] Stroke Neurology regarding case and had CT clouded to them. He agreed not l ikely CVA but could get CTA to rule out large vessel occlusion. ABG, EKG, glucose, and troponin ordered as well. Transferred patient to the ICU. Objective Exam Vital Signs Vital Signs Date Time Temp Pulse Resp B/P (MAP) Pulse Ox O2 Delivery O2 Flow Rate FiO2 12/01/20 09:04 78 15 98 60.00 12/01/20 09:03 NIV Bilevel 12/01/20 09:00 91/72 (78) 12/01/20 07:57 35.7 11/30/20 06:06 28 Capillary Refill : Less Than 3 SecondsLess Than 3 Seconds General Appearance: Chronically ill, Thin, Other (lethargic) Respiratory: No Accessory Muscle Use, Decreased Breath Sounds; No Wheezing Cardiovascular: Regular Rate, Rhythm, No Murmur Gastrointestinal: Normal Bowel Sounds, Non Tender, Soft Neurologic/Psychiatric: Other (moves all extremities though global weakness apparant, no focal deficits, possible tongue deviation to right though due to drowsiness may just be position related, did not follow commands but resisted some movement for testing was able to OBANDO. No gaze deviation. ) Results/Procedures Lab Laboratory Tests 12/01/20 04:38 Patient resulted labs reviewed. Imaging: Reviewed Imaging Report Assessment/Plan Assessment and Plan Assess & Plan/Chief Complaint AMS Acute hypoxic and hypercapnic respiratory failure CODE stroke called CT head negative, CTA ordered Discussed with [facility] Stroke neurology as above ABG revealed acidosis with CO2 of 91 Transferred to ICU for BiPAP I called and updated eICU as well as family Confirmed patient is a full code with daughter Repeat ABG ordered for 30m post BiPAP CXR reveals worsening CHF, lasix already given Acutely decompensated heart failure HTN new onset atrial fibrillation NSTEMI- Type II Cardiology consulted, appreciate assistance Repeat troponin essentially stable Converted to sinus overnight Echo pending Continue lasix Monitor on telemetry ?rose's palsy Reports "left cheek fell and swelling" since last week, saw Dr Vilchis who recommended "exercise" Hardly noticeable asymetric features OT per patient request DVT ppx: Lovenox Critical Care Critically Ill Patient CC TIME : Critical Care Start Date: Dec 01, 2020 Critical Care Start Time: 08:10 Stop date: Dec 01, 2020 Stop Time: 08:58 Diagnosis/Problems Diagnosis/Problems (1) Acute respiratory failure Qualifiers: Respiratory failure complication: hypoxia and hypercapnia Qualified Codes: J96.01 - Acute respiratory failure with hypoxia; J96.02 - Acute respiratory failure with hypercapnia (2) Essential (primary) hypertension Status: Chronic (3) NSTEMI (non-ST elevated myocardial infarction) Status: Acute (4) Atrial fibrillation Status: Acute Qualifiers: Atrial fibrillation type: paroxysmal Qualified Codes: I48.0 - Paroxysmal atrial fibrillation (5) Cachexia Status: Chronic (6) New onset of congestive heart failure Status: Acute (7) CO2 narcosis MINERVA GEORGE MD Dec 01, 2020 08:42
[2020-12-01 08:44] LABS: ABG PCO2 91 MMHG (35-45); ABG PH 7.23 (7.37-7.43); ALLENS TEST YES-POS
[2020-12-01 08:45] LABS: PATIENT TEMP 36.7; VENTILATOR NO
[2020-12-01] MEDS: FUROSEMIDE 40 MG/4 ML INJ (LASIX) IVP SCH (08:58)
[2020-12-01 09:03] LABS: BACTERIA,URINE FEW /HPF; WBC,URINE 50-100 /HPF
[2020-12-01 09:53] LABS: ABG BASE EXCESS 10.4 MMOL/L (-2.5-2.5); ABG OXYGEN SATURATION 97 % (94-100); ABG PO2 103 MMHG (79-93); ABG TCO2 40.8 MMOL/L (21.0-31.0)
[2020-12-01 09:54] LABS: ABG PCO2 94 MMHG (35-45); ABG PH 7.23 (7.37-7.43)
[2020-12-01 09:55] LABS: ALLENS TEST YES-POS; INSPIRED O2 60% BIPAP; PATIENT TEMP 37.2; VENTILATOR NO
[2020-12-01] MEDS ORDERED: NS 100 ML (IVPB) BAG IV ONE ×3 (10:15→22:45)
[2020-12-01] MEDS ORDERED: IOHEXOL 350 MG/ML 100 ML (OMNIPAQUE 350) VIAL IV ONE ×2 (10:15→15:30)
[2020-12-01] MEDS ORDERED: HOLD METFORMIN - RECEIVED CONTRAST 20 ML VIAL IV SCH ×2 (10:15→15:30)
[2020-12-01 11:02] LABS: ABG BASE EXCESS 11.4 MMOL/L (-2.5-2.5); ABG OXYGEN SATURATION 98 % (94-100); ABG PO2 123 MMHG (79-93); ABG TCO2 42.2 MMOL/L (21.0-31.0)
[2020-12-01] MEDS ORDERED: PROPOFOL DRIP (ICU) 100 ML IV ONE (11:05)
[2020-12-01 11:07] LABS: ABG PH 7.22 (7.37-7.43)
[2020-12-01 11:08] LABS: ABG PCO2 98 MMHG (35-45); ALLENS TEST YES-POS; INSPIRED O2 60% BIPAP; PATIENT TEMP 36.8; VENTILATOR NO
[2020-12-01] MEDS ORDERED: fentaNYL DRIP PRE-MIX 250 ML IV ONE (11:20)
[2020-12-01] MEDS ORDERED: NS IV 1000 ML 1,000 ML ONE ×2 (11:21→22:31)
[2020-12-01] MEDS ORDERED: fentaNYL DRIP PRE-MIX 250 ML IV SCH (11:30)
--- NOTE | 2020-12-01 12:08 | Anesthesia-Procedure Note ---
Procedures/Interventions Procedure Start/Stop/Diagnosis Date of Procedure: Dec 01, 2020 Start Time: 11:30 Referring Physician: Paramjit Preprocedural Diagnosis: Respiratory Failure Brief History Called by housekeeping lead for intubation and A-line in ICU per consult request of Dr. Yusuf. Pt on bipap in respiratory distress, opens eyes but not following commands. Pre oxygenated with 100% O2 per BVM. Induced with Etomidate 10mg and Zemuron 50 mg. Easy mask ventilation. VL with Glidescope #3 Gr 1 view. #8.0 tube passed easily. Secured at 21cm. BS =b/l, sats 100% and +etco2 per EZCap. Vent settings per ICU/RT. VSS. After intubation, #22g Arrow left radial A-line placed x2 attempts with chlorhexidine prep. Good blood return and waveform on monitor. Secured with sterile opsite and tape. Report to RN. Stop Time: 12:00 Postprocedural Diagnosis: Respiratory Failure Intubation RSI: No 100% pre-Ox, [id number]: Yes Videoscope used: Yes Medications: Etomidate, Rocuronium Mask Ventilation: positive Positive End Tide CO2: Yes Breath Sounds after Intubation: bilateral-equal Intubated with ease: Yes Intubation Complications: no complications Post Intubation Xray-done: Yes Arterial Line Arterial Line Catheter: 22G Type: Radial Procedure: prepped, draped in sterile fashion, good wave-form was obtained, patient tolerated procedure well, no immediate complications, post procedure area cleaned, post procedure dressing applied ALLEN RAMÍREZ CRNA Dec 01, 2020 12:08
--- NOTE | 2020-12-01 12:15 | Diagnostic Imaging Report ---
INDICATION: Intubation FINDINGS: Frontal view of the chest demonstrates interval placement of an endotracheal tube with its tip at the becky. An enteric tube transverses the radiograph. Cardiomegaly is stable. There is a hiatal hernia. The density along the right chest wall has resolved. Diffuse pulmonary infiltrates are again identified. Pulmonary congestion and edema are present. There are small pleural effusions. IMPRESSION: 1. Interval intubation with endotracheal tube at the becky. This should be pulled back approximately 2 cm. 2. The density along the right chest wall has resolved. 3. Pulmonary congestion and bilateral infiltrates with small pleural effusions are again identified. Dictated by: Dictated on workstation # [id number]
[2020-12-01] MEDS: PROPOFOL DRIP (ICU) 100 ML IV SCH ×2 (12:24→21:29)
[2020-12-01 14:26] LABS: ABG BASE EXCESS 9.7 MMOL/L (-2.5-2.5); ABG OXYGEN SATURATION 98 % (94-100); ABG PCO2 35 MMHG (35-45); ABG PH 7.57 (7.37-7.43); ABG PO2 84 MMHG (79-93); ABG TCO2 33.8 MMOL/L (21.0-31.0)
[2020-12-01 14:31] LABS: ALLENS TEST YES-POS; INSPIRED O2 50%; PATIENT TEMP 36.4; VENTILATOR YES
[2020-12-01] MEDS: CATHETER FLUSH 10 ML SYR IV PRN (16:04)
[2020-12-01] MEDS ORDERED: ETOMIDATE IV SOLN 20 MG/10 ML VIAL IV ONE (16:05)
[2020-12-01] MEDS ORDERED: ROCURONIUM 10 MG/ML 5 ML SYRINGE IV ONE (16:05)
--- NOTE | 2020-12-01 16:33 | Diagnostic Imaging Report ---
Clinical indication: Patient with mental status change. Rule out stroke. Exams: 1: Head CT with and without IV contrast. Auto Exposure Controls were utilized during the CT exam to meet ALARA standards for radiation dose reduction. 2: CT angiogram of the head and neck performed with 60 cc of Omnipaque 350 IV contrast. Sagittal and coronal MIP reformations were created for better visualization of vascular anatomy. Auto Exposure Controls were utilized during the CT exam to meet ALARA standards for radiation dose reduction. Comparison: Head CT without contrast dated 12/01/2020. Findings: Head CT: There is no significant change to the diffuse low attenuation white matter changes seen throughout both cerebral hemispheres. There are no transcortical low density changes seen. There is diffuse brain parenchymal volume loss. There is no intracranial hemorrhage or hydrocephalus. There is no brain herniation or midline shift. There is no abnormal IV contrast enhancement. The remainder of this exam shows no significant interval change compared to the prior study of comparison. CT angiogram: Three-vessel aortic arch is seen. The bilateral subclavian arteries and brachiocephalic artery are patent. Tortuous mid left CCA is seen. The left CCA is patent. There is mild narrowing of the origin of the left ECA. Otherwise, the left ECA is patent. The cervical left ICA is patent. Tortuous and hairpin distal cervical left ICA is seen. Tortuous right common carotid artery is seen with mild kinking and narrowing seen in its midportion. The right common carotid artery is otherwise patent. The cervical right ICA is patent. The distal cervical right ICA is tortuous but patent. There is mild narrowing of the origin of the right ECA. Otherwise the right ECA is patent. There is mild atherosclerotic disease involving the bilateral cavernous carotid arteries and paraclinoid ICA with no significant stenosis. The bilateral cervical vertebral arteries are patent. Bilateral PICA are patent. The intradural bilateral vertebral arteries, basilar artery, bilateral superior cerebellar arteries and bilateral [employer] are patent. The bilateral ACAs and distal branches are patent. The bilateral MCAs and their distal branches are patent. The bilateral ACAs and their distal branches are patent. ET tube and feeding tube are partially visualized. Heterogeneous thyroid gland is noted. There is a moderate sized left pleural effusion which is partially visualized. There is a minimal sized right pleural effusion. Patchy groundglass opacification is noted in both lung apices. Bilateral apical pleural parenchymal thickening/scarring is seen. There is cervical spine degenerative disease. Old healed forefoot fracture of right proximal humeral neck is seen. IMPRESSION: 1: Stable appearance of the brain parenchyma. There is no definite CT evidence of interval acute cerebral infarction, intracranial hemorrhage or mass seen. Given the diffuse low attenuation changes throughout the brain parenchyma which can obscure more subtle findings. If there is clinical concern for acute cerebral infarction, MRI of the brain would better evaluate. 2: There is severe diffuse chronic small vessel ischemic disease leukoaraiosis. There is diffuse brain parenchymal volume loss. 3: CT angiogram of the [place] of [place] and neck shows no large vessel occlusion, significant stenosis, vascular malformation or aneurysm. 4: Heterogeneous thyroid gland is seen. Nonemergent thyroid ultrasound would better evaluate. Results of this report were discussed with Dr. Susana Yusuf via the telephone on 12/01/2020 at 1621 hours. Dictated by: Dictated on workstation # [id number]
[2020-12-01] MEDS ORDERED: D5W 1000 ML IV SOLUTION 1,000 ML ONE (17:30)
[2020-12-01] MEDS ORDERED: DEXTROSE 50% 50 ML (IMS) SYR ONE (17:30)
[2020-12-01] MEDS: inSUlin ASPART (NovoLOG) 1 UNIT/0.01 ML (CHARGE PER UNIT) SC SCH (17:48)
[2020-12-01] MEDS ORDERED: DEXTROSE 50% 50 ML (IMS) SYR IV ONE (18:00)
[2020-12-01] MEDS ORDERED: D5W 1000 ML IV SOLUTION 1,000 ML IV SCH (18:00)
--- NOTE | 2020-12-01 19:09 | Cardiology Progress Note ---
Cardiology SOAP Progress Note Subjective: intubated this morning and transferred to the ICU Objective: I&O/Vital Signs 12/01/20 12/01/20 12/01/20 12/01/20 07:57 09:00 09:00 09:03 Temp 35.7 Pulse 77 78 Resp 16 27 B/P (MAP) 115/73 (87) 91/72 (78) Pulse Ox 95 95 96 O2 Delivery Nasal Cannula NIV Bilevel NIV Bilevel NIV Bilevel O2 Flow Rate 5.00 100.00 60.00 FiO2 60 12/01/20 12/01/20 12/01/20 12/01/20 09:04 09:45 10:00 10:00 Temp 37.2 36.8 Pulse 78 73 Resp 15 14 B/P (MAP) 96/59 (71) Pulse Ox 98 99 O2 Delivery NIV Bilevel O2 Flow Rate 60.00 60.00 12/01/20 12/01/20 12/01/20 12/01/20 10:15 11:00 11:45 12:00 Temp 36.3 Pulse 70 69 90 Resp 16 14 24 B/P (MAP) 85/59 (68) 95/64 (74) Pulse Ox 100 100 98 O2 Delivery NIV Bilevel NIV Bilevel Mechanical Ventilator O2 Flow Rate 60.00 60.00 FiO2 50 50 12/01/20 12/01/20 12/01/20 12/01/20 12:19 12:24 13:00 13:00 Pulse 122 62 96 Resp 24 23 B/P (MAP) 128/72 (90) 101/43 94/46 (62) Pulse Ox 100 100 O2 Delivery Mechanical Ventilator Mechanical Ventilator O2 Flow Rate 50.00 50.00 12/01/20 12/01/20 12/01/20 12/01/20 13:55 14:00 15:00 15:43 Temp 37.4 Pulse 83 60 58 Resp 24 23 24 B/P (MAP) 88/47 (61) 90/47 (61) Pulse Ox 100 100 100 O2 Delivery Mechanical Ventilator Mechanical Ventilator O2 Flow Rate 50.00 50.00 FiO2 50 12/01/20 12/01/20 12/01/20 12/01/20 16:00 16:00 17:00 18:00 Pulse 67 71 73 Resp 24 15 23 B/P (MAP) 119/55 (76) 106/53 (70) 106/50 (68) Pulse Ox 99 98 95 100 O2 Delivery Mechanical Ventilator Mechanical Ventilator Mechanical Ventilator Mechanical Ventilator O2 Flow Rate 50.00 50.00 50.00 FiO2 50 12/01/20 18:36 Pulse 65 Resp 24 Pulse Ox 98 FiO2 50 12/01/20 00:00 Intake Total 750 ml Output Total 550 ml Balance 200 ml Constitutional: appears stated age; No apparent distress; well-developed, well- nourished, other (intubated/ventilated) Respiratory: crackles Cardiovascular: irregularly irregular, S1 and S2, systolic murmur Gastrointestional: soft; No spleenomegaly Extremities: pedal edema; No clubbing, No cyanosis, No significant edema Neurologic/Psychiatric: no motor/sensory deficits, alert, normal mood/affect, oriented x 3, power is 5/5 both on sides Skin: No rash, No ulcerations Results/Procedures: Labs Laboratory Tests 12/01/20 04:38: White Blood Count 9.0, Red Blood Count 4.34, Hemoglobin 13.5, Hematocrit 42, Mean Corpuscular Volume 96, Mean Corpuscular Hemoglobin 31, Mean Corpuscular Hemoglobin Concent 32, Red Cell Distribution Width 13.8, Platelet Count 153, Mean Platelet Volume 12.6H, Immature Granulocyte % (Auto) 0, Neutrophils (%) (Auto) 81H, Lymphocytes (%) (Auto) 7L, Monocytes (%) (Auto) 11, Eosinophils (%) (Auto) 0, Basophils (%) (Auto) 0, Neutrophils # (Auto) 7.3, Lymphocytes # (Auto) 0.6L, Monocytes # (Auto) 1.0, Eosinophils # (Auto) 0.0, Basophils # (Auto) 0.0, Immature Granulocyte # (Auto) 0.0, D-Dimer 0.53H, Sodium Level 130L, Potassium Level 4.0, Chloride Level 89L, Carbon Dioxide Level 30, Anion Gap 11, Blood Urea Nitrogen 9, Creatinine 0.59L, Estimat Glomerular Filtration Rate > 60, BUN/Creatinine Ratio 15, Glucose Level 108H, Calcium Level 9.0, Phosphorus Level 3.9, Magnesium Level 2.1, Troponin I 0.116H 12/01/20 08:28: Glucometer 123H 12/01/20 08:30: Urine Color YELLOW, Urine Clarity CLEAR, Urine pH 6.0, Urine Specific [place] >=1.030, Urine Protein 1+H, Urine Glucose (UA) NEGATIVE, Urine Ketones NEGATIVE, Urine Nitrite NEGATIVE, Urine Bilirubin NEGATIVE, Urine Urobilinogen 2.0, Urine Leukocyte Esterase 1+H, Urine RBC (Auto) TRACE-I, Urine RBC 5-10H, Urine WBC 50- 100H, Urine Crystals NONE, Urine Bacteria FEWH, Urine Casts NONE, Urine Mucus MODERATEH, Urine Culture Indicated YES, Blood Gas Puncture Site RT RADIAL, Blood Gas Patient Temperature 36.7, Arterial Blood pH 7.23*L, Arterial Blood Partial Pressure CO2 91*H, Arterial Blood Partial Pressure O2 52L, Arterial Blood HCO3 37H, Arterial Blood Total CO2 39.5H, Arterial Blood Oxygen Saturation 74L, Arterial Blood Base Excess 9.2H, Trever Test YES-POS, Blood Gas Ventilator Setting NO, Blood Gas Inspired Oxygen UNKNOWN 12/01/20 09:45: Blood Gas Puncture Site LT RADIAL, Blood Gas Patient Temperature 37.2, Arterial Blood pH 7.23*L, Arterial Blood Partial Pressure CO2 94*H, Arterial Blood Partial Pressure O2 103H, Arterial Blood HCO3 38H, Arterial Blood Total CO2 40.8H, Arterial Blood Oxygen Saturation 97, Arterial Blood Base Excess 10.4H, Trever Test YES-POS, Blood Gas Ventilator Setting NO, Blood Gas Inspired Oxygen 60% BIPAP 12/01/20 10:55: Blood Gas Puncture Site RT RADIAL, Blood Gas Patient Temperature 36.8, Arterial Blood pH 7.22*L, Arterial Blood Partial Pressure CO2 98*H, Arterial Blood Partial Pressure O2 123H, Arterial Blood HCO3 39H, Arterial Blood Total CO2 42.2H, Arterial Blood Oxygen Saturation 98, Arterial Blood Base Excess 11.4H, Trever Test YES-POS, Blood Gas Ventilator Setting NO, Blood Gas Inspired Oxygen 60% BIPAP 12/01/20 12:06: Lactic Acid Level 0.61 12/01/20 14:15: Blood Gas Puncture Site LT RADIAL, Blood Gas Patient Temperature 36.4, Arterial Blood pH 7.57H, Arterial Blood Partial Pressure CO2 35, Arterial Blood Partial Pressure O2 84, Arterial Blood HCO3 33H, Arterial Blood Total CO2 33.8H, Arterial Blood Oxygen Saturation 98, Arterial Blood Base Excess 9.7H, Trever Test YES-POS, Blood Gas Ventilator Setting YES, Blood Gas Inspired Oxygen 50% 12/01/20 17:23: Glucometer 57*L 3/28/21 17:30: Glucometer 57*L Microbiology 11/30/20 MRSA Screen - Final, Complete MRSA not isolated A/P: Assessment/Dx: shortness of breath, acute respiratory failure, likely multifactorial history of CHF, Mild elevation of troponin, AF, moderate to severe MR, moderate to severe , Pulmonary HTN Plan: Acute respiratory failure requiring intubation/ventilation. iv lasix echocardiogram - shows normal LV function, however atleast moderate to severe MR, and pulmonary HTN is noted. serial troponin, likely troponin leak associated with CHF. Thank you for your consultation. Please call me if you have any questions. Adriano Ward MD, FACP, FACC, FSCAI, FHRS, CCDS Interventional Cardiology Cardiac Electrophysiology Vascular Medicine and Endovascular Interventions Focused Exam Lactate Level 12/01/20 12:06: Lactic Acid Level 0.61 José Miguel WARD MD Dec 01, 2020 19:09
[2020-12-01] MEDS ORDERED: CIPROFLOXACIN IV 400MG/200ML 200 ML IV SCH (21:00)
[2020-12-02] VITALS (30 sets, daily range): BP systolic 77–138; BP diastolic 35–99
[2020-12-02] MEDS: inSUlin ASPART (NovoLOG) 1 UNIT/0.01 ML (CHARGE PER UNIT) SC SCH ×4 (00:47→19:00)
[2020-12-02 03:48] LABS: BASOPHILS % (AUTO) 0 % (0-10); EOSINOPHILS % (AUTO) 0 % (0-10); HEMATOCRIT 34 % (35-52); HEMOGLOBIN 11.4 g/dL (11.5-16.0); LYMPHOCYTES # (AUTO) 0.5 10^3/uL (1.0-4.0); LYMPHOCYTES % (AUTO) 8 % (12-44); MEAN CORPUSCULAR HEMOGLOBIN 31 pg (25-34); MEAN CORPUSCULAR HGB CONC 33 g/dL (32-36); MEAN CORPUSCULAR VOLUME 94 fL (80-99); MONOCYTES # (AUTO) 1.1 10^3/uL (0.0-1.0); MONOCYTES % (AUTO) 15 % (0-12); NEUTROPHILS # (AUTO) 5.5 10^3/uL (1.8-7.8); NEUTROPHILS % (AUTO) 77 % (42-75); PLATELET COUNT 137 10^3/uL (130-400); WHITE BLOOD COUNT 7.1 10^3/uL (4.3-11.0)
[2020-12-02 03:49] LABS: ABG BASE EXCESS 8.3 MMOL/L (-2.5-2.5); ABG OXYGEN SATURATION 94 % (94-100); ABG PCO2 31 MMHG (35-45); ABG PO2 59 MMHG (79-93); ABG TCO2 31.9 MMOL/L (21.0-31.0)
[2020-12-02 03:50] LABS: ALLENS TEST ARTLINE; INSPIRED O2 25; PATIENT TEMP 36; VENTILATOR YES
[2020-12-02 03:56] LABS: CHLORIDE 92 MMOL/L (98-107); POTASSIUM 3.4 MMOL/L (3.6-5.0); SODIUM 129 MMOL/L (135-145)
[2020-12-02 03:58] LABS: CALCIUM 7.6 MG/DL (8.5-10.1); GLUCOSE 87 MG/DL (70-105)
[2020-12-02 04:00] LABS: CARBON DIOXIDE 27 MMOL/L (21-32)
[2020-12-02 04:02] LABS: CREATININE SERUM 0.54 MG/DL (0.60-1.30); GFR ESTIMATED > 60; PHOSPHORUS 2.2 MG/DL (2.3-4.7)
[2020-12-02 04:03] LABS: BUN/CREATININE RATIO 20
[2020-12-02 04:04] LABS: MAGNESIUM 1.6 MG/DL (1.6-2.4)
--- NOTE | 2020-12-02 04:45 | Pulmonary Consultation ---
History of Present Illness History of Present Illness Date Seen by Provider: Dec 02, 2020 Time Seen by Provider: 04:40 Date of Admission Allergies and Home Medications Allergies Coded Allergies: aspirin (Verified Allergy, Unknown, 12/04/19) Home Medications Tramadol HCl 50 Mg Tablet, 50 MG PO Q8H PRN for PAIN Prescribed by: MALU RAGLAND on 12/04/19 1343 Past [id number] Hx Past Med/Social Hx: Reviewed Nursing Past Med/Soc Hx Patient Social History Alcohol Use: Denies Use Recent Infectious Disease Expo: No Recent Hopitalizations: No Have you traveled recently?: No Immunizations Up To Date Tetanus Booster (TDap): Unknown PED Vaccines UTD: No Seasonal Allergies Seasonal Allergies: No Past Medical History Surgeries: No Respiratory: No Cardiac: No Hypertension Neurological: No Genitourinary: No Gastrointestinal: No Musculoskeletal: No Endocrine: No HEENT: No Cancer: No Psychosocial: No Integumentary: No Blood Disorders: No Family Medical History Reviewed Nursing Family Hx Sepsis Event Evaluation Height, Weight, BMI Height: '" Weight: lbs. oz. kg; 18.36 BMI Method: Exam Exam Vital Signs Date Time Temp Pulse Resp B/P (MAP) Pulse Ox O2 Delivery O2 Flow Rate FiO2 12/02/20 04:05 94 23 93/47 (62) 94 Mechanical Ventilator 25.00 12/02/20 03:50 36.7 12/02/20 03:05 92 23 97/43 (61) 91 Mechanical Ventilator 25.00 12/02/20 02:40 Mechanical Ventilator 25.00 12/02/20 02:20 98 23 109/45 (66) 94 Mechanical Ventilator 30.00 12/02/20 01:51 83 24 93 50 12/02/20 01:00 79 12/02/20 01:00 66 23 106/41 (62) 93 Mechanical Ventilator 30.00 12/02/20 00:00 71 24 107/44 (65) 91 Mechanical Ventilator 30.00 12/02/20 00:00 38.0 12/01/20 23:59 94 Mechanical Ventilator 30 12/01/20 23:00 104 23 114/48 (70) 95 Mechanical Ventilator 30.00 12/01/20 22:38 66 24 98 50 12/01/20 22:28 Mechanical Ventilator 30.00 12/01/20 22:17 68 23 92/47 (62) 99 Mechanical Ventilator 50.00 12/01/20 21:29 65 90/48 12/01/20 21:00 100 24 102/44 (63) 97 Mechanical Ventilator 50.00 12/01/20 20:05 62 24 100/43 (62) 99 Mechanical Ventilator 50.00 12/01/20 20:00 100 Mechanical Ventilator 50 12/01/20 19:26 37.4 12/01/20 19:00 81 23 93/44 (60) 98 Mechanical Ventilator 50.00 12/01/20 19:00 96 12/01/20 18:36 65 24 98 50 12/01/20 18:00 73 23 106/50 (68) 100 Mechanical Ventilator 50.00 12/01/20 17:00 71 15 106/53 (70) 95 Mechanical Ventilator 50.00 12/01/20 16:00 98 Mechanical Ventilator 50 12/01/20 16:00 67 24 119/55 (76) 99 Mechanical Ventilator 50.00 12/01/20 15:43 37.4 12/01/20 15:00 58 24 90/47 (61) 100 Mechanical Ventilator 50.00 12/01/20 14:00 60 23 88/47 (61) 100 Mechanical Ventilator 50.00 12/01/20 13:55 83 24 100 50 12/01/20 13:00 96 12/01/20 13:00 62 23 94/46 (62) 100 Mechanical Ventilator 50.00 12/01/20 12:24 101/43 12/01/20 12:19 122 24 128/72 (90) 100 Mechanical Ventilator 50.00 12/01/20 12:00 98 Mechanical Ventilator 50 12/01/20 11:45 90 24 50 12/01/20 11:00 69 14 95/64 (74) 100 NIV Bilevel 60.00 12/01/20 10:15 36.3 70 16 85/59 (68) 100 NIV Bilevel 60.00 12/01/20 10:00 36.8 12/01/20 10:00 73 14 96/59 (71) 99 NIV Bilevel 60.00 12/01/20 09:45 37.2 12/01/20 09:04 78 15 98 60.00 12/01/20 09:03 NIV Bilevel 60.00 12/01/20 09:00 78 27 91/72 (78) 96 NIV Bilevel 100.00 12/01/20 09:00 95 NIV Bilevel 60 12/01/20 07:57 35.7 77 16 115/73 (87) 95 Nasal Cannula 5.00 12/01/20 07:00 70 12/01/20 04:57 36.2 92 22 136/83 (100) 92 Nasal Cannula 7.00 I & O 12/02/20 07:00 Output Total 875 ml Balance -875 ml Height & Weight Height: '" Weight: lbs. oz. kg; 18.36 BMI Method: General Appearance: Chronically ill, Thin, Other (lethargic) HEENT: PERRL/EOMI, Moist Mucous Membranes; No Scleral Icterus (L), No Scleral Icterus (R) Neck: Normal Inspection, Supple Respiratory: No Accessory Muscle Use, Decreased Breath Sounds; No Wheezing Cardiovascular: Regular Rate, Rhythm, No Murmur Capillary Refill: Less Than 3 Seconds Gastrointestinal: soft, tenderness (Very slight tenderness to the right of suprapubic) Extremity: Normal Capillary Refill, No Calf Tenderness, Swelling (2+ pitting edema to just below knees) Neurologic/Psychiatric: Other (moves all extremities though global weakness apparant, no focal deficits, possible tongue deviation to right though due to drowsiness may just be position related, did not follow commands but resisted some movement for testing was able to OBANDO. No gaze deviation. ) Skin: Normal Color, Warm/Dry Results Lab Laboratory Tests 12/01/20 04:38 12/02/20 03:42 Assessment/Plan Assessment/Plan Acute respiratory failure -Intubated 12/01 -Admitted 11/30 -Transferred to ICU 12/01 -Vent: 350/24/5-- 25% -hold sedation once fully awake change vent to Spont mode with PEEP 5 and PS 10. ABG 30min after change. Metabolic encephalopathy with AMS -Probably secondary to C02 narcosis -CT head negative CHFAE -Monitor -Hold lasix secondary to hypotension and concentrated urine with oliguria -change IVF to D5 LR and increase to 100 Hypoglycemia and hyponatremia -Change D5W to D5LR at 100ml/hr UTI -Pt is currently on Cipro -Change to cefepime for now and await cultures Hypotension -Increase IVF new onset atrial fibrillation--- Controlled -Monitor Monitor on telemetry NSTEMI- Type II ?rose's palsy DVT ppx: CRUZITO Kilpatrick DO Dec 02, 2020 04:45
[2020-12-02] MEDS ORDERED: POTASSIUM PHOSPHATE INJ 30 MM in NS (IVPB) 250 ML IV ONE (05:00)
[2020-12-02] MEDS: CEFEPIME INJECTION 1,000 MG in WATER (STERILE) FOR INJECTION 10 ML IV SCH ×3 (05:42→17:34)
[2020-12-02] MEDS: D5 LR IV SOLUTION 1,000 ML IV SCH ×3 (05:42→22:48)
[2020-12-02] MEDS: POTASSIUM CL 10MEQ/50ML IVPB 50 ML IV SCH ×3 (05:42→06:48)
[2020-12-02] MEDS: MAGNESIUM 1 GM/100 ML IVPB 100 ML IV SCH ×3 (05:42→06:48)
[2020-12-02] MEDS: KCL 20 MEQ TAB (K-DUR) PO SCH (05:43)
--- NOTE | 2020-12-02 05:59 | Diagnostic Imaging Report ---
INDICATION: Respiratory failure Portable chest 3:14 AM There is an ET tube projecting over the trachea. There is an NG tube that enters the stomach. There is volume loss at both lung bases. There are small bilateral effusions. IMPRESSION: Bilateral basilar consolidations with effusions. No significant change from previous day. Dictated by: Dictated on workstation # [id number]
[2020-12-02] MEDS: PANTOPRAZOLE 40 MG (PROTONIX) VIAL IV SCH (08:18)
[2020-12-02] MEDS: ENOXAPARIN 300 MG/3 ML (LOVENOX) MULTI-DOSE VIAL SQ SCH ×2 (08:18→20:23)
--- NOTE | 2020-12-02 08:31 | Occ Therapy Progress Note ---
Therapy Progress Note Pt. currently on ventilator support. Will continue to monitor and assess when pt. medically stable. 0831 TIN CRUZ OT Dec 02, 2020 08:31
[2020-12-02 08:34] LABS: ABG BASE EXCESS 7.7 MMOL/L (-2.5-2.5); ABG OXYGEN SATURATION 93 % (94-100); ABG PCO2 44 MMHG (35-45); ABG PH 7.47 (7.37-7.43); ABG PO2 64 MMHG (79-93); ABG TCO2 32.9 MMOL/L (21.0-31.0)
[2020-12-02 08:35] LABS: ALLENS TEST YES-POS
[2020-12-02 08:36] LABS: INSPIRED O2 25%; VENTILATOR YES
--- NOTE | 2020-12-02 10:29 | Physical Therapy Progress Note ---
Therapy Progress Note Pt. currently on ventilator support. Will continue to monitor and assess when pt. medically stable. ALTON HENAO PT Dec 02, 2020 10:29
[2020-12-02 10:32] LABS: ABG OXYGEN SATURATION 92 % (94-100); ABG PCO2 52 MMHG (35-45); ABG PO2 70 MMHG (79-93); ABG TCO2 33.3 MMOL/L (21.0-31.0)
--- NOTE | 2020-12-02 10:33 | Cardiology Progress Note ---
Subjective Date Seen by Provider: Dec 02, 2020 Time Seen by Provider: 10:30 Subjective/Events-last exam Patient is laying down in bed, awake, ventilator dependent, being weaned off Review of Systems General: Other (Unable to provide review of systems) Focused Exam Lactate Level 12/01/20 12:06: Lactic Acid Level 0.61 Objective-Cardiology Exam Last Set of Vital Signs Vital Signs 12/02/20 12/02/20 12/02/20 08:28 10:00 10:21 Temp 37.2 Pulse 96 Resp 27 B/P (MAP) 134/70 (91) Pulse Ox 88 O2 Delivery Mechanical Ventilator O2 Flow Rate 25.00 FiO2 40 Capillary Refill : Less Than 3 SecondsLess Than 3 Seconds I&O Intake and Output 12/02/20 00:00 Intake Total 150 ml Output Total 850 ml Balance -700 ml Intake Oral 150 ml Output Urine Total 650 ml Oral Regurgitation 200 ml # Voids 2 Daily Weight Change Yes, 2-13 lbs General: Other (Awake, following commands, intubated) HEENT: Atraumatic, PERRLA Neck: Supple Lungs: Clear to Auscultation, Normal Air Movement Heart: Normal S1, Normal S2 Abdomen: Normal Bowel Sounds Extremities: No Clubbing, No Cyanosis Skin: No Rashes Neuro: Other (Awake, following commands, intubated) Psych/Mental Status: Other (Intubated) Results Lab Laboratory Tests 12/02/20 03:42 A/P-Cardiology Admission Diagnosis Acute respiratory failure Atrial fibrillation Congestive heart failure Aortic valve stenosis Assessment/Plan Acute respiratory failure, multifactorial, being weaned off ventilator, improving slowly. Continue to monitor Congestive heart failure, echocardiogram was reported to have ejection fraction 55 to 65%, moderate to severe aortic stenosis, mitral regurgitation, severe pulmonary hypertension with PA pressure 80 to 85 mmHg. Continue to monitor Atrial fibrillation, rate is controlled. Being weaned off the ventilator. Continue to monitor Mild elevation in troponin, probably type II myocardial infarction secondary to hypoxemia and respiratory failure. Continue to monitor, will consider stress testing versus cardiac catheterization once clinically more stable. Severe pulmonary hypertension, probably secondary to COPD. SMITH TRAORE MD Dec 02, 2020 10:33
[2020-12-02 10:34] LABS: ALLENS TEST YES-POS; INSPIRED O2 35%; VENTILATOR YES
--- NOTE | 2020-12-02 13:13 | Progress Note - Hospitalist ---
Subjective HPI/CC On Admission Date Seen by Provider: Dec 02, 2020 Time Seen by Provider: 08:05 Pt is an 85yoCF with a PMH of HTN who presented to the ER due to shortness of breath. She states she has been short of breath for a while but tries to not go to the doctor. Last night her daughter visited her and noticed how short of key ath she was and brought her to the ER for evlauation. She was found to be quite hypoxic on arrivla with saats in the 70s. She was found to be in heart failure on CXR but has no past medical history of this. She was admitted to the ICU and was given lasix and states she is feeling much better today. She states she has been peeing a lot and feels better. 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 She is quite thin and she states she last 30 lbs a few years ago and has not been able to put it back on. Subjective/Events-last exam She remains intubated. She is awake and able to follow commands. She denies pain. She would like to have the endotracheal tube removed. Focused Exam Lactate Level 12/01/20 12:06: Lactic Acid Level 0.61 Objective Exam Vital Signs Vital Signs Date Time Temp Pulse Resp B/P (MAP) Pulse Ox O2 Delivery O2 Flow Rate FiO2 12/02/20 12:11 111 44 95 70.00 12/02/20 12:00 94/49 (64) OxyMask 12/02/20 10:21 40 12/02/20 08:28 37.2 Capillary Refill : Less Than 3 SecondsLess Than 3 Seconds General Appearance: No Apparent Distress, Chronically ill, Thin Respiratory: Lungs Clear, No Respiratory Distress, Other (Intubated and mechanically ventilated) Cardiovascular: Regular Rate, Rhythm, No Edema, No Murmur Gastrointestinal: Normal Bowel Sounds, Non Tender, Soft Extremity: Normal Inspection, Non Tender, No Pedal Edema Neurologic/Psychiatric: Alert, No Motor/Sensory Deficits Skin: Normal Color, Warm/Dry Results/Procedures Lab Laboratory Tests 12/02/20 03:42 Patient resulted labs reviewed. Imaging: Reviewed Imaging Report Assessment/Plan Assessment and Plan Assess & Plan/Chief Complaint Acute hypoxic and hypercapnic respiratory failure CO2 narcosis ABG revealed acute hypercapnia Transferred to ICU for BiPAP, subsequently required intubation due to ref ractory hypercapnia Possibly attempting extubation today Acutely decompensated heart failure HTN New onset atrial fibrillation NSTEMI, type II Pulmonary hypertension Cardiology consulted, appreciate assistance Repeat troponin essentially stable Converted to sinus overnight Echo with normal EF, restrictive pattern, pulmonary hypertension Continue lasix Continue therapeutic Lovenox Monitor on telemetry Diagnosis/Problems Diagnosis/Problems (1) Acute respiratory failure Status: Acute Qualifiers: Respiratory failure complication: hypoxia and hypercapnia Qualified Codes: J96.01 - Acute respiratory failure with hypoxia; J96.02 - Acute respiratory failure with hypercapnia (2) CO2 narcosis Status: Acute (3) NSTEMI (non-ST elevated myocardial infarction) Status: Acute (4) Atrial fibrillation Status: Acute Qualifiers: Atrial fibrillation type: paroxysmal Qualified Codes: I48.0 - Paroxysmal atrial fibrillation (5) New onset of congestive heart failure Status: Acute ANASTACIA STEWART MD Dec 02, 2020 13:13
[2020-12-02] MEDS ORDERED: AMLO1CAP4 PO (13:19)
[2020-12-02] MEDS ORDERED: ACET325T38 PO (13:19)
[2020-12-02 13:28] LABS: ABG BASE EXCESS 6.5 MMOL/L (-2.5-2.5); ABG OXYGEN SATURATION 99 % (94-100); ABG PCO2 58 MMHG (35-45); ABG PH 7.36 (7.37-7.43); ABG PO2 119 MMHG (79-93); ABG TCO2 33.6 MMOL/L (21.0-31.0)
[2020-12-02 13:29] LABS: ALLENS TEST YES-POS; INSPIRED O2 70%; VENTILATOR NO
[2020-12-02 13:30] LABS: PATIENT TEMP 37.1
[2020-12-02] MEDS ORDERED: RT-ALBUTEROL/IPRATROPIUM 3 ML (DUONEB) VIAL ONE (14:08)
[2020-12-02] MEDS: RT-ALBUTEROL/IPRATROPIUM 3 ML (DUONEB) VIAL INH SCH ×2 (18:14→22:22)
[2020-12-02 20:22] LABS: ABG BASE EXCESS 6.8 MMOL/L (-2.5-2.5); ABG OXYGEN SATURATION 99 % (94-100); ABG PCO2 54 MMHG (35-45); ABG PH 7.39 (7.37-7.43); ABG PO2 128 MMHG (79-93); ABG TCO2 33.3 MMOL/L (21.0-31.0)
[2020-12-02 20:26] LABS: ALLENS TEST ARTLINE; INSPIRED O2 55; PATIENT TEMP 37.4; VENTILATOR NO
[2020-12-02] MEDS ORDERED: DexMEDEtomidine 250 ML DRIP 250 ML IV ONE (22:08)
[2020-12-02] MEDS ORDERED: DexMEDEtomidine 250 ML DRIP 250 ML IV SCH (22:15)
[2020-12-03] VITALS (25 sets, daily range): BP systolic 90–161; BP diastolic 55–114
[2020-12-03] MEDS: inSUlin ASPART (NovoLOG) 1 UNIT/0.01 ML (CHARGE PER UNIT) SC SCH ×4 (00:11→18:10)
[2020-12-03] MEDS: CEFEPIME INJECTION 1,000 MG in WATER (STERILE) FOR INJECTION 10 ML IV SCH ×4 (00:12→17:07)
[2020-12-03] MEDS: D5 LR IV SOLUTION 1,000 ML IV SCH (01:02)
[2020-12-03] MEDS: RT-ALBUTEROL/IPRATROPIUM 3 ML (DUONEB) VIAL INH SCH ×6 (02:39→21:44)
[2020-12-03 03:39] LABS: BASOPHILS % (AUTO) 0 % (0-10); EOSINOPHILS % (AUTO) 0 % (0-10); HEMATOCRIT 34 % (35-52); HEMOGLOBIN 11.2 g/dL (11.5-16.0); LYMPHOCYTES # (AUTO) 0.7 10^3/uL (1.0-4.0); LYMPHOCYTES % (AUTO) 8 % (12-44); MEAN CORPUSCULAR HEMOGLOBIN 32 pg (25-34); MEAN CORPUSCULAR HGB CONC 33 g/dL (32-36); MEAN CORPUSCULAR VOLUME 97 fL (80-99); MEAN PLATELET VOLUME 11.8 fL (9.0-12.2); MONOCYTES # (AUTO) 1.2 10^3/uL (0.0-1.0); MONOCYTES % (AUTO) 13 % (0-12); NEUTROPHILS # (AUTO) 6.9 10^3/uL (1.8-7.8); NEUTROPHILS % (AUTO) 78 % (42-75); PLATELET COUNT 144 10^3/uL (130-400); WHITE BLOOD COUNT 8.9 10^3/uL (4.3-11.0)
[2020-12-03 03:47] LABS: ABG BASE EXCESS 7.1 MMOL/L (-2.5-2.5); ABG OXYGEN SATURATION 99 % (94-100); ABG PCO2 52 MMHG (35-45); ABG PO2 111 MMHG (79-93); ABG TCO2 33.7 MMOL/L (21.0-31.0); ALLENS TEST ARTLINE; INSPIRED O2 30; PATIENT TEMP 36.6; VENTILATOR NO
[2020-12-03 03:50] LABS: CHLORIDE 94 MMOL/L (98-107); POTASSIUM 3.9 MMOL/L (3.6-5.0); SODIUM 130 MMOL/L (135-145)
[2020-12-03 03:52] LABS: CALCIUM 7.7 MG/DL (8.5-10.1); GLUCOSE 127 MG/DL (70-105)
[2020-12-03 03:54] LABS: CARBON DIOXIDE 27 MMOL/L (21-32)
[2020-12-03 03:56] LABS: CREATININE SERUM 0.51 MG/DL (0.60-1.30); GFR ESTIMATED > 60; PHOSPHORUS 3.3 MG/DL (2.3-4.7)
[2020-12-03 03:57] LABS: BUN/CREATININE RATIO 18
--- NOTE | 2020-12-03 04:16 | Pulmonary Progress Note ---
Subjective Time Seen by a Provider: 04:12 Sepsis Event Evaluation Height, Weight, BMI Height: '" Weight: lbs. oz. kg; 18.36 BMI Method: Focused Exam Lactate Level 12/01/20 12:06: Lactic Acid Level 0.61 Exam Exam Vital Signs Date Time Temp Pulse Resp B/P (MAP) Pulse Ox O2 Delivery O2 Flow Rate FiO2 12/03/20 04:06 High Flow N/C 3.00 12/03/20 04:02 36.3 High Flow N/C 10.00 12/03/20 03:41 96 NIV Bilevel 30 12/03/20 02:39 89 32 90 30.00 12/03/20 02:00 89 31 108/82 (91) 95 NIV Bilevel 30.00 12/03/20 01:01 NIV Bilevel 30.00 12/03/20 01:00 76 15 96/70 (79) 97 NIV Bilevel 30.00 12/03/20 00:17 96 NIV Bilevel 30 12/03/20 00:12 36.6 12/03/20 00:00 82 15 90/75 (80) 94 NIV Bilevel 30.00 12/02/20 23:00 79 15 84/58 (68) 92 NIV Bilevel 30.00 12/02/20 22:48 102/77 12/02/20 22:22 111 37 90 30.00 12/02/20 22:00 70 21 102/77 (84) 91 NIV Bilevel 30.00 12/02/20 21:00 87 15 86/49 (64) 89 NIV Bilevel 30.00 12/02/20 20:27 NIV Bilevel 30.00 12/02/20 20:00 116 113/73 (85) 93 NIV Bilevel 50.00 12/02/20 20:00 96 NIV Bilevel 50 12/02/20 19:09 37.4 12/02/20 19:00 106 22 119/70 (86) 95 NIV Bilevel 50.00 12/02/20 19:00 NIV Bilevel 50.00 12/02/20 18:14 87 31 97 55.00 12/02/20 17:00 113 23 89/52 (64) 93 OxyMask 10.00 12/02/20 16:00 96 NIV Bilevel 55 12/02/20 16:00 90 18 112/91 (98) 94 OxyMask 10.00 12/02/20 15:56 37.0 12/02/20 15:00 95 18 94 OxyMask 10.00 115/82 (93) 12/02/20 14:18 102 31 95 55.00 12/02/20 14:00 109 20 94 OxyMask 10.00 108/72 (84) 12/02/20 13:00 93 28 112/92 (99) 91 OxyMask 10.00 12/02/20 12:34 90 12/02/20 12:11 111 44 95 70.00 12/02/20 12:00 100 33 94/49 (64) 90 OxyMask 10.00 12/02/20 12:00 98 NIV Bilevel 65 12/02/20 11:54 OxyMask 10.00 12/02/20 11:00 101 39 138/77 (97) 95 Nasal Cannula 2.00 12/02/20 10:45 Nasal Cannula 2.00 12/02/20 10:21 96 27 88 40 12/02/20 10:00 116 26 134/70 (91) 88 Mechanical Ventilator 25.00 12/02/20 09:00 67 18 93/53 (66) 95 Mechanical Ventilator 25.00 12/02/20 08:28 37.2 12/02/20 08:00 96 17 84/35 (51) 90 Mechanical Ventilator 25.00 12/02/20 08:00 95 Mechanical Ventilator 30 12/02/20 07:00 92 13 81/43 (56) 90 Mechanical Ventilator 25.00 12/02/20 06:41 75 24 92 25 12/02/20 06:30 60 12/02/20 06:00 92 13 88/44 (59) 91 Mechanical Ventilator 25.00 96/61 (73) 12/02/20 05:11 113 17 97/52 (67) 98 Mechanical Ventilator 25.00 I & O 12/03/20 07:00 Intake Total 560 ml Output Total 645 ml Balance -85 ml Height & Weight Height: '" Weight: lbs. oz. kg; 18.36 BMI Method: General Appearance: No Apparent Distress, Chronically ill, Thin HEENT: PERRL/EOMI, Moist Mucous Membranes; No Scleral Icterus (L), No Scleral Icterus (R) Neck: Normal Inspection, Supple Respiratory: Lungs Clear, No Respiratory Distress, Other (Intubated and mechanically ventilated) Cardiovascular: Regular Rate, Rhythm, No Edema, No Murmur Capillary Refill: Less Than 3 Seconds Gastrointestinal: soft, tenderness (Very slight tenderness to the right of suprapubic) Extremity: Normal Inspection, Non Tender, No Pedal Edema Neurologic/Psychiatric: Alert, No Motor/Sensory Deficits Skin: Normal Color, Warm/Dry Results Lab Laboratory Tests 12/01/20 04:38 12/02/20 03:42 12/03/20 03:31 Assessment/Plan Assessment/Plan Acute respiratory failure -Intubated 12/01 -Extubated 12/02 -Admitted 11/30 -Transferred to ICU 12/01 -Pt used bipap through the night -She is currently on a 3 liter NC Metabolic encephalopathy with AMS -Probably secondary to C02 narcosis -CT head negative CHFAE diastolic EF 55-65 -Monitor -Hold lasix secondary to hypotension and concentrated urine with oliguria -change IVF to D5 LR and increase to 125 Hypoglycemia and hyponatremia -Change D5W to D5LR at 100ml/hr UTI -Pt is currently on Cipro -Change to cefepime for now and await cultures Hypotension -Increase IVF new onset atrial fibrillation--- Controlled -Monitor Monitor on telemetry NSTEMI- Type II ?rose's palsy DVT ppx: CRUZITO Kilpatrick DO Dec 03, 2020 04:16
[2020-12-03] MEDS: POTASSIUM CL 10MEQ/50ML IVPB 50 ML IV SCH (04:24)
[2020-12-03] MEDS: KCL 20 MEQ TAB (K-DUR) PO SCH (04:24)
[2020-12-03] MEDS: MAGNESIUM 1 GM/100 ML IVPB 100 ML IV SCH (04:24)
[2020-12-03] MEDS: PANTOPRAZOLE 40 MG (PROTONIX) VIAL IV SCH (07:49)
[2020-12-03] MEDS: ENOXAPARIN 300 MG/3 ML (LOVENOX) MULTI-DOSE VIAL SQ SCH ×2 (07:49→19:56)
--- NOTE | 2020-12-03 08:37 | Diagnostic Imaging Report ---
INDICATION: Respiratory failure. COMPARISON: 12/02/2020 FINDINGS: Single frontal radiograph view of the chest was obtained and again demonstrates moderate cardiomegaly. Pulmonary vascular congestion has progressed. There is also interval increase in diffuse interstitial opacities and developing perihilar alveolar opacification. Bilateral pleural effusions are also again identified. There is no pneumothorax. Osseous structures show no gross acute abnormalities. Patient has since been extubated. Gastric tube is also now absent. IMPRESSION: 1. Cardiomegaly with sequela of CHF. Additionally, there does appear to be developing perihilar alveolar pulmonary edema. 2. Persistent bibasilar effusions. Dictated by: Dictated on workstation # [id number]
--- NOTE | 2020-12-03 09:01 | Cardiology Progress Note ---
Subjective Date Seen by Provider: Dec 03, 2020 Time Seen by Provider: 08:58 Subjective/Events-last exam Patient is laying down in bed, still confused. Mild dyspnea. Review of Systems General: No Chills, No Night Sweats; Fatigue, Malaise; No Appetite, No Other HEENT: No Head Aches, No Visual Changes, No Eye Pain, No Ear Pain, No Dysphasia, No Sinus Congestion, No Post Nasal Drip, No Sore Throat, No Other Pulmonary: Dyspnea; No Cough, No Pleuritic Chest Pain, No Other Cardiovascular: Edema; No: Chest Pain, Palpitations, Orthopnea, Paroxysmal Noc. Dyspnea, Lt Headedness, Other Focused Exam Lactate Level 12/01/20 12:06: Lactic Acid Level 0.61 Objective-Cardiology Exam Last Set of Vital Signs Vital Signs 12/03/20 12/03/20 12/03/20 12/03/20 03:41 06:00 07:53 08:00 Temp 37.2 Pulse 83 Resp 19 B/P (MAP) 98/72 (81) Pulse Ox 95 O2 Delivery High Flow N/C O2 Flow Rate 6.00 FiO2 30 Capillary Refill : Less Than 3 SecondsLess Than 3 Seconds I&O Intake and Output 12/02/20 23:59 Intake Total 1260 ml Output Total 625 ml Balance 635 ml Intake Oral 0 ml IV Total 1260 ml Output Urine Total 625 ml General: Alert, Cooperative, No Acute Distress HEENT: Atraumatic, PERRLA Neck: Supple Lungs: Clear to Auscultation, Normal Air Movement Heart: Normal S1, Normal S2 Abdomen: Normal Bowel Sounds Extremities: No Clubbing, No Cyanosis Skin: No Rashes Neuro: Normal Speech Psych/Mental Status: Mental Status NL Results Lab Laboratory Tests 12/03/20 03:31 A/P-Cardiology Admission Diagnosis Acute respiratory failure Atrial fibrillation Congestive heart failure Aortic valve stenosis Assessment/Plan Status post acute respiratory failure, acute pulmonary edema, responding to diuretic, extubated and doing better. Continue with diuresis. Congestive heart failure, echocardiogram was reported to have ejection fraction 55 to 65%, moderate to severe aortic stenosis, mitral regurgitation, severe p ulmonary hypertension with PA pressure 80 to 85 mmHg. Continue with Lasix, patient probably will require evaluation for aortic valve replacement Atrial fibrillation, rate is controlled. Continue to monitor Mild elevation in troponin, probably type II myocardial infarction secondary to hypoxemia and respiratory failure. Continue to monitor, will consider stress testing versus cardiac catheterization once clinically more stable. Severe pulmonary hypertension, probably secondary to COPD and left ventricular diastolic dysfunction with valvular heart disease with moderate to severe aortic stenosis SMITH TRAORE MD Dec 03, 2020 09:01
[2020-12-03] MEDS: FUROSEMIDE 40 MG/4 ML INJ (LASIX) IVP SCH ×2 (09:34→17:06)
--- NOTE | 2020-12-03 09:55 | Physical Therapy Daily Note ---
PT Daily Note-Current Subjective Patient is alert and agrees to PT. Live sitter present due to confusion. Mental Status Patient Orientation: Confused Attachments: Central Line, Oxygen, Contreras Catheter Transfers SCALE: Activities may be completed with or without assistive devices. 6-Znjeawntoa-wftgdyj completes the activity by him/herself with no assistance from a helper. 5-Set-up or Clean-up Assistance-helper sets up or cleans up; patient completes activity. [place] assists only prior to or following the activity. 4-Supervision or Touching Assistance-helper provides verbal cues and/or touching/steadying and/or contact guard assistance as patient completes activity. Assistance may be provided throughout the activity or intermittently. 3-Partial/Moderate Assistance-helper does LESS THAN HALF the effort. [place] lifts, holds or supports trunk or limbs, but provides less than half the effort. 2-Substantial/Maximal Assistance-helper does MORE THAN HALF the effort. [place] lifts or holds trunk or limbs and provides more than half the effort. 8-Uvldjxwfs-aehdjh does ALL the effort. Patient does none of the effort to complete the activity. Or, the assistance of 2 or more helpers is required for the patient to complete the activity. If activity was not attempted, code reason: 7-Patient Refused. 9-Not Applicable-not attempted and the patient did not perform the activity before the current illness, exacerbation or injury. 10-Not Attempted due to Environmental Limitations-(lack of equipment, weather restraints, etc.). 88-Not Attempted due to Medical Conditions or Safety Concerns. Roll Left & Right (QC): 4 Lying to Sitting/Side of Bed(Q: 4 Sit to Stand (QC): 4 Chair/Lct-fd-Tycfm Xfer(QC): 4 CGA for safety with sit to stand to FWW Weight Bearing Right Lower Extremity: Right Weight Bearing/Tolerated Left Lower Extremity: Left Weight Bearing/Tolerated Gait Training Does the Patient Walk?: Yes Distance: 10' Walk 10 feet (QC): 4 Gait Assistive Device: FWW Exercises Seated Therapy Exercises: Ankle pumps, Long arc quads, Hip flexion Seated Reps: 12 Assessment Patient's SAO2 decreased to 83% on NC with quick recovery. Patient is up in recliner with live sitter present for patient safety. Increase activity as tolerated by patient. PT Jail Goals Answering Service Telephone Operator Goals PT Answering Service Telephone Operator Goals Time Frame: Dec 14, 2020 Roll Left & Right (QC): 6 Sit to Lying (QC): 6 Lying-Sitting on Side/Bed(QC): 6 Sit to Stand (QC): 6 Chair/Wei-fo-Fxrgo Xfer(QC): 6 Toilet Transfer (QC): 6 Car Transfer (QC): 6 Does the Patient Walk: Yes Walk 10 feet (QC): 6 Walk 50ft with 2 Turns (QC): 6 Walk 150 ft (QC): 6 Walking 10ft on Uneven Surface: 6 4 Steps (QC): 6 Picking up an Object (QC): 6 Does the Pt use WC or Scooter?: No PT Plan Treatment/Plan Treatment Plan: Continue Plan of Care Treatment Plan: Concurrent Therapy, Functional Activity Kylah, Functional Strength, Gait, Therapeutic Exercise, Transfers Treatment Duration: Dec 14, 2020 Frequency: 6 times per week Estimated Hrs Per Day: .25 hour per day Patient and/or Family Agrees t: Yes Time/GCodes Time In: 820 Time Out: 830 Total Billed Treatment Time: 10 Total Billed Treatment 1 visit FA 10 min ALTON HENAO PT Dec 03, 2020 09:54
--- NOTE | 2020-12-03 14:31 | Progress Note - Hospitalist ---
Subjective HPI/CC On Admission Date Seen by Provider: Dec 03, 2020 Time Seen by Provider: 09:00 Pt is an 85yoCF with a PMH of HTN who presented to the ER due to shortness of breath. She states she has been short of breath for a while but tries to not go to the doctor. Last night her daughter visited her and noticed how short of key ath she was and brought her to the ER for evlauation. She was found to be quite hypoxic on arrivla with saats in the 70s. She was found to be in heart failure on CXR but has no past medical history of this. She was admitted to the ICU and was given lasix and states she is feeling much better today. She states she has been peeing a lot and feels better. 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 She is quite thin and she states she last 30 lbs a few years ago and has not been able to put it back on. Subjective/Events-last exam She is up in her chair. She is feeling much better. She is not having any issues. She denies breathing trouble. Focused Exam Lactate Level 12/01/20 12:06: Lactic Acid Level 0.61 Objective Exam Vital Signs Vital Signs Date Time Temp Pulse Resp B/P (MAP) Pulse Ox O2 Delivery O2 Flow Rate FiO2 12/03/20 13:00 89 12/03/20 12:00 19 111/95 (100) 90 High Flow N/C 5.00 12/03/20 11:54 37.5 12/03/20 03:41 30 Capillary Refill : Less Than 3 SecondsLess Than 3 Seconds General Appearance: No Apparent Distress, Chronically ill Respiratory: No Respiratory Distress, Decreased Breath Sounds Cardiovascular: Regular Rate, Rhythm, No Edema, No Murmur Gastrointestinal: Normal Bowel Sounds, Non Tender, Soft Extremity: Normal Inspection, Non Tender, No Pedal Edema Neurologic/Psychiatric: Alert, Oriented x3, No Motor/Sensory Deficits, Normal Mood/Affect Skin: Normal Color, Warm/Dry Results/Procedures Lab Laboratory Tests 12/03/20 03:31 Patient resulted labs reviewed. Imaging: Reviewed Imaging Report Assessment/Plan Assessment and Plan Assess & Plan/Chief Complaint Acute hypoxic and hypercapnic respiratory failure Acutely decompensated HFpEF New onset atrial fibrillation NSTEMI, type II Pulmonary hypertension Essential hypertension s/p endotracheal intubation Pulmonology consulted, appreciate assistance Cardiology consulted, appreciate assistance Now in normal sinus rhythm Echo with normal EF, restrictive pattern, pulmonary hypertension Continue lasix Continue therapeutic Lovenox Continue Cefepime CO2 narcosis, resolved Diagnosis/Problems Diagnosis/Problems (1) Acute respiratory failure Status: Acute Qualifiers: Respiratory failure complication: hypoxia and hypercapnia Qualified Codes: J96.01 - Acute respiratory failure with hypoxia; J96.02 - Acute respiratory failure with hypercapnia (2) CO2 narcosis Status: Resolved Resolution Date/Time: 12/03/20 @ 14:35 (3) NSTEMI (non-ST elevated myocardial infarction) Status: Acute (4) Atrial fibrillation Status: Acute Qualifiers: Atrial fibrillation type: paroxysmal Qualified Codes: I48.0 - Paroxysmal atrial fibrillation (5) New onset of congestive heart failure Status: Acute ANASTACIA STEWART MD Dec 03, 2020 14:31
--- NOTE | 2020-12-03 14:33 | Occupational Therapy Eval ---
OT Evaluation-General/PLF Medical Diagnosis Admission Date Nov 30, 2020 at 03:29 Medical Diagnosis: Elevated troponin I Onset Date: Nov 30, 2020 Therapy Diagnosis Therapy Diagnosis: Weakness Precautions Precautions/Isolations: Fall Prevention, Standard Precautions Weight Bear Status Weight Bearing Restriction: Weight Bearing/Tolerated Referral Physician: Dr. Edge Referral Reason: Activity Tolerance, Self Care, Evaluation/Treatment, Strengthening/ROM Medical History Additional Medical History Scoliosis with severe kyphosis, ventilator placement Reviewed History: Yes Social History Home: Single Level Entry Into Home: Stairs Without Railing Steps Into Home: 3 ADL-Prior Level of Function SCALE: Activities may be completed with or without assistive devices. 6-Wmjvwhysrg-mylvxyf completes the activity by him/herself with no assistance from a helper. 5-Set-up or Clean-up Assistance-helper sets up or cleans up; patient completes activity. [place] assists only prior to or following the activity. 4-Supervision or Touching Assistance-helper provides verbal cues and/or touching/steadying and/or contact guard assistance as patient completes activity. Assistance may be provided throughout the activity or intermittently. 3-Partial/Moderate Assistance-helper does LESS THAN HALF the effort. [place] lifts, holds or supports trunk or limbs, but provides less than half the effort. 2-Substantial/Maximal Assistance-helper does MORE THAN HALF the effort. [place] lifts or holds trunk or limbs and provides more than half the effort. 9-Mnzcgnadb-vavrxn does ALL the effort. Patient does none of the effort to complete the activity. Or, the assistance of 2 or more helpers is required for the patient to complete the activity. If activity was not attempted, code reason: 7-Patient Refused. 9-Not Applicable-not attempted and the patient did not perform the activity before the current illness, exacerbation or injury. 10-Not Attempted due to Environmental Limitations-(lack of equipment, weather restraints, etc.). 88-Not Attempted due to Medical Conditions or Safety Concerns. ADL PLOF Comments This information unknown to this therapist at this time. Please see note below. Self Care: Unknown Functional Cognition: Unknown OT Current Status Subjective Pt. having signficant anxiety when therapist entered room. Family member in room and lets OT know to talk with pt. and she will calm down. Pt. did do this. Mental Status/Objective Attachments: Contreras Catheter, IV, Oxygen ADL-Treatment Shower/Bathe Self (QC): 2 On/Off Footwear (QC): 2 Other Treatments Pt. on BSC when OT entered room. Pt has sitter present due to confusion, and family member. Sitter reports that pt. had pulled out an important line. Nursing comes into room and would like pt. to stay on BSC while line is being addressed. After nursing okay for therapy to continue, Nurse aide and OT complete bath, gown change, and socks quickly due to anxiety with current situ ation. Pt. calms down with talking, and warm blanket is applied over shoulders. Pt. would not like to go back to bed just yet, as she still is trying to have BM. All needs are met and sitter continues in room with pt. Goals will be set to SBA and re-addressed when pt. can be assessed during time that is not in crisis. Education OT Patient Education: Correct positioning, Modified ADL techniques, Progress toward Goal/Update tx plan, Purpose of tx/functional activities, Reviewed precautions, Rehab process Teaching Recipient: Patient, Family Teaching Methods: Demonstration, Discussion Response to Teaching: Reinforcement Needed OT Short Term Goals Short Term Goals Time Frame: Dec 10, 2020 Eatin Oral hygiene: 3 Toileting hygiene: 3 Shower/bathe self: 3 Upper body dressin Lower body dressin Putting on/taking off footwear: 3 OT Chcf Goals Chcf Goals Time Frame: Dec 17, 2020 Eating (QC): 6 Oral Hygiene (QC): 5 Toileting Hygiene (QC): 4 Shower/Bathe Self (QC): 4 Upper Body Dressing (QC): 5 Lower Body Dressing (QC): 4 On/Off Footwear (QC): 4 Additional Goals: 1-Demonstrate ADL Tasks, 2-Verbalize Understanding, 3- ImproveStrength/[place] 1=Demonstrate adherence to instructed precautions during ADL tasks. 2=Patient will verbalize/demonstrate understanding of assistive devices/modifications for ADL. 3=Patient will improve strength/tolerance for activity to enable patient to perform ADL's. OT Education/Plan Problem List/Assessment Assessment: Decreased Activ Tolerance, Decreased Safety Aware, Decreased UE Strength, Dependent Transfers, Impaired Bed Mobility, Impaired Cognition, Impaired Coordination, Impaired Funct Balance, Impaired I ADL's, Impaired Self- Care Skills, Restricted Funct UE ROM Discharge Recommendations Plan/Recommendations: Continue POC Therapy Discharge Recommendati: Post Acute OT Treatment Plan/Plan of Care Treatment,Training & Education: Yes Patient would benefit from OT for education, treatment and training to promote independence in ADL's, mobility, safety and/or upper extremity function for ADL's. Plan of Care: ADL Retraining, Functional Mobility, UE Funct Exercise/Act Treatment Duration: Dec 17, 2020 Frequency: 5 times per week Estimated Hrs Per Day: .25 hour per day Agreement: Yes Rehab Potential: Fair Time/GCodes Start Time: 13:50 Stop Time: 14:00 Total Time Billed (hr/min): 10 Billed Treatment Time 1, TIN MARSHALL OT Dec 03, 2020 14:33
[2020-12-03] MEDS ORDERED: HALOPERIDOL 5 MG/ML (HALDOL) VIAL ONE (23:29)
[2020-12-04] VITALS (20 sets, daily range): BP systolic 69–170; BP diastolic 59–131
[2020-12-04] MEDS ORDERED: HALOPERIDOL 5 MG/ML (HALDOL) VIAL IM ONE
[2020-12-04] MEDS: CEFEPIME INJECTION 1,000 MG in WATER (STERILE) FOR INJECTION 10 ML IV SCH ×4 (00:35→18:45)
[2020-12-04] MEDS: inSUlin ASPART (NovoLOG) 1 UNIT/0.01 ML (CHARGE PER UNIT) SC SCH ×2 (00:46→05:35)
[2020-12-04] MEDS: RT-ALBUTEROL/IPRATROPIUM 3 ML (DUONEB) VIAL INH SCH ×6 (01:53→21:28)
[2020-12-04 03:16] LABS: BASOPHILS % (AUTO) 0 % (0-10); EOSINOPHILS % (AUTO) 0 % (0-10); HEMATOCRIT 38 % (35-52); LYMPHOCYTES # (AUTO) 0.5 10^3/uL (1.0-4.0); LYMPHOCYTES % (AUTO) 9 % (12-44); MEAN CORPUSCULAR HEMOGLOBIN 31 pg (25-34); MEAN CORPUSCULAR HGB CONC 31 g/dL (32-36); MEAN CORPUSCULAR VOLUME 98 fL (80-99); MEAN PLATELET VOLUME 12.2 fL (9.0-12.2); MONOCYTES # (AUTO) 0.8 10^3/uL (0.0-1.0); MONOCYTES % (AUTO) 14 % (0-12); NEUTROPHILS # (AUTO) 4.5 10^3/uL (1.8-7.8); NEUTROPHILS % (AUTO) 77 % (42-75); PLATELET COUNT 148 10^3/uL (130-400); WHITE BLOOD COUNT 5.9 10^3/uL (4.3-11.0)
[2020-12-04 03:31] LABS: CHLORIDE 95 MMOL/L (98-107); POTASSIUM 4.2 MMOL/L (3.6-5.0); SODIUM 134 MMOL/L (135-145)
[2020-12-04 03:32] LABS: CALCIUM 8.5 MG/DL (8.5-10.1); GLUCOSE 109 MG/DL (70-105)
[2020-12-04 03:34] LABS: CARBON DIOXIDE 30 MMOL/L (21-32)
[2020-12-04 03:36] LABS: CREATININE SERUM 0.52 MG/DL (0.60-1.30); GFR ESTIMATED > 60; PHOSPHORUS 2.7 MG/DL (2.3-4.7)
[2020-12-04] MEDS: ACETAMINOPHEN 325 MG TABLET PO PRN (03:36)
[2020-12-04 03:37] LABS: BUN/CREATININE RATIO 21
[2020-12-04 03:38] LABS: MAGNESIUM 2.1 MG/DL (1.6-2.4)
[2020-12-04] MEDS: D5 LR IV SOLUTION 1,000 ML IV SCH (03:38)
[2020-12-04] MEDS: MAGNESIUM 1 GM/100 ML IVPB 100 ML IV SCH (03:51)
[2020-12-04] MEDS: KCL 20 MEQ TAB (K-DUR) PO SCH (03:51)
[2020-12-04] MEDS: POTASSIUM CL 10MEQ/50ML IVPB 50 ML IV SCH ×5 (03:51→12:27)
[2020-12-04] MEDS ORDERED: fentaNYL INJ 100 MCG/2 ML AMP ONE (04:41)
[2020-12-04] MEDS ORDERED: fentaNYL INJ 100 MCG/2 ML AMP IVP PRN ×2 (05:00→05:45)
[2020-12-04] MEDS ORDERED: FUROSEMIDE 40 MG/4 ML INJ (LASIX) IVP ONE ×3 (05:30→22:45)
[2020-12-04] MEDS: FUROSEMIDE 40 MG/4 ML INJ (LASIX) IVP SCH ×2 (05:35→16:54)
[2020-12-04] MEDS ORDERED: PHARMACY TO DOSE IV SCH (05:45)
[2020-12-04] MEDS ORDERED: VANCOMYCIN INJECTION 1,000 MG in NS (IVPB) 250 ML IV NR (06:00)
[2020-12-04] MEDS ORDERED: NS (IVPB) 0 ML ONE (06:05)
[2020-12-04] MEDS ORDERED: VANCOMYCIN 1000 MG/VIAL ONE (06:05)
--- NOTE | 2020-12-04 08:52 | Physical Therapy Daily Note ---
PT Daily Note-Current Subjective Patient in bed pre tx, agrees to PT, somewhat difficult to rouse, has sitter in room, no complaints of pain. Appearance Patient in recliner post tx with nurse call, sitter in room, legs elevated. Mental Status Patient Orientation: Person, Confused Attachments: Oxygen, Contreras Catheter, IV vapotherm Transfers SCALE: Activities may be completed with or without assistive devices. 6-Fnlfztwjol-aoxijzn completes the activity by him/herself with no assistance from a helper. 5-Set-up or Clean-up Assistance-helper sets up or cleans up; patient completes activity. [place] assists only prior to or following the activity. 4-Supervision or Touching Assistance-helper provides verbal cues and/or touching/steadying and/or contact guard assistance as patient completes activity. Assistance may be provided throughout the activity or intermittently. 3-Partial/Moderate Assistance-helper does LESS THAN HALF the effort. [place] lifts, holds or supports trunk or limbs, but provides less than half the effort. 2-Substantial/Maximal Assistance-helper does MORE THAN HALF the effort. [place] lifts or holds trunk or limbs and provides more than half the effort. 1-Wzyhrtxwa-gnplrr does ALL the effort. Patient does none of the effort to complete the activity. Or, the assistance of 2 or more helpers is required for the patient to complete the activity. If activity was not attempted, code reason: 7-Patient Refused. 9-Not Applicable-not attempted and the patient did not perform the activity before the current illness, exacerbation or injury. 10-Not Attempted due to Environmental Limitations-(lack of equipment, weather restraints, etc.). 88-Not Attempted due to Medical Conditions or Safety Concerns. Roll Left & Right (QC): 4 Lying to Sitting/Side of Bed(Q: 3 Sit to Stand (QC): 4 Chair/Wxq-ey-Dwxth Xfer(QC): 4 Weight Bearing Right Lower Extremity: Right Weight Bearing/Tolerated Left Lower Extremity: Left Weight Bearing/Tolerated Gait Training Distance: 5' Gait Persons Needed: 1 Gait Assistive Device: FWW CGA, steady ambulation, needs cues for direction Exercises Seated Therapy Exercises: Ankle pumps, Long arc quads, Hip flexion Seated Reps: 20 Treatments bed mobility and transfers, ambulation, LE exercise Assessment Current Status: Fair Progress progressing functional mobility PT Residential Goals Residential Goals PT Residential Goals Time Frame: Dec 14, 2020 Roll Left & Right (QC): 6 Sit to Lying (QC): 6 Lying-Sitting on Side/Bed(QC): 6 Sit to Stand (QC): 6 Chair/Dph-cg-Ythvo Xfer(QC): 6 Toilet Transfer (QC): 6 Car Transfer (QC): 6 Does the Patient Walk: Yes Walk 10 feet (QC): 6 Walk 50ft with 2 Turns (QC): 6 Walk 150 ft (QC): 6 Walking 10ft on Uneven Surface: 6 4 Steps (QC): 6 Picking up an Object (QC): 6 Does the Pt use WC or Scooter?: No PT Plan Problem List Problem List: Activity Tolerance, Functional Strength, Safety, Balance, Gait, Transfer, Bed Mobility, ROM Treatment/Plan Treatment Plan: Continue Plan of Care Treatment Plan: Concurrent Therapy, Functional Activity [place], Functional Strength, Gait, Therapeutic Exercise, Transfers Treatment Duration: Dec 14, 2020 Frequency: 6 times per week Estimated Hrs Per Day: .25 hour per day Patient and/or Family Agrees t: Yes Safety Risks/Education Patient Education: Gait Training, Transfer Techniques, Correct Positioning, Safety Issues Teaching Recipient: Patient Teaching Methods: Demonstration, Discussion Response to Teaching: Reinforcement Needed Time/GCodes Time In: 829 Time Out: 08 Total Billed Treatment Time: 12 Total Billed Treatment 1 visit FA 12' KIRK RENTERIA PT Dec 04, 2020 08:52
[2020-12-04] MEDS: ENOXAPARIN 300 MG/3 ML (LOVENOX) MULTI-DOSE VIAL SQ SCH ×2 (09:21→21:59)
[2020-12-04] MEDS: PANTOPRAZOLE 40 MG (PROTONIX) VIAL IV SCH (09:21)
--- NOTE | 2020-12-04 10:07 | Cardiology Progress Note ---
Subjective Date Seen by Provider: Dec 04, 2020 Time Seen by Provider: 08:00 Subjective/Events-last exam Patient was seen at bedside, laying down comfortably, still having fatigue and shortness of breath Review of Systems General: No Chills, No Night Sweats; Fatigue, Malaise; No Appetite, No Other HEENT: No Head Aches, No Visual Changes, No Eye Pain, No Ear Pain, No Dysphasia, No Sinus Congestion, No Post Nasal Drip, No Sore Throat, No Other Pulmonary: Dyspnea; No Cough, No Pleuritic Chest Pain, No Other Cardiovascular: No: Chest Pain, Palpitations, Orthopnea, Paroxysmal Noc. Dyspnea, Edema, Lt Headedness, Other Focused Exam Lactate Level 12/01/20 12:06: Lactic Acid Level 0.61 Objective-Cardiology Exam Last Set of Vital Signs Vital Signs 12/04/20 12/04/20 12/04/20 12/04/20 00:47 07:29 08:00 09:00 Temp 37.5 Pulse 129 Resp 19 B/P (MAP) 129/96 (107) Pulse Ox 92 O2 Delivery Vapotherm O2 Flow Rate 40.00 100.00 FiO2 80 Capillary Refill : Less Than 3 SecondsLess Than 3 Seconds I&O Intake and Output 12/04/20 00:00 Intake Total 680 ml Output Total 1670 ml Balance -990 ml Intake Oral 680 ml Output Urine Total 1670 ml General: Alert, Cooperative, No Acute Distress HEENT: Atraumatic, PERRLA Neck: Supple Lungs: Normal Air Movement, Other (With rales at the bases) Heart: Normal S1, Normal S2, Other (Systolic murmur at the left sternal border) Abdomen: Normal Bowel Sounds Extremities: No Clubbing, No Cyanosis Skin: No Rashes Neuro: Normal Speech Psych/Mental Status: Mental Status NL Results Lab Laboratory Tests 12/04/20 02:38 A/P-Cardiology Admission Diagnosis Acute respiratory failure Atrial fibrillation Congestive heart failure Aortic valve stenosis Assessment/Plan Status post acute respiratory failure, acute pulmonary edema, responding to diuretic, patient was extubated recently, doing better, continue with diuretics and monitor tolerance and response Congestive heart failure, echocardiogram was reported to have ejection fraction 55 to 65%, moderate to severe aortic stenosis, mitral regurgitation, severe pulmonary hypertension with PA pressure 80 to 85 mmHg. Continue with Lasix, patient probably will require evaluation for aortic valve replacement Atrial fibrillation, rate is controlled, having few episodes of tachycardia. Continue to monitor Mild elevation in troponin, probably type II myocardial infarction secondary to hypoxemia and respiratory failure. Continue to monitor, will consider stress testing versus cardiac catheterization once clinically more stable. Moderate to severe aortic valve stenosis, consideration for referral for valve replacement Severe pulmonary hypertension, probably secondary to COPD and left ventricular diastolic dysfunction with valvular heart disease with moderate to severe aortic stenosis SMITH TRAORE MD Dec 04, 2020 10:07
--- NOTE | 2020-12-04 12:12 | Diagnostic Imaging Report ---
Indication: Respiratory failure. COMPARISON: 12/03/2020 FINDINGS: Single frontal radiograph view the chest was obtained and demonstrates persistent cardiomegaly with pulmonary vascular congestion and interstitial pulmonary edema. Central perihilar alveolar opacities are also again noted suggestive of alveolar edema. There has been interval increase in opacity along the lateral margins of the right chest suspicious for effusion; possibly loculated. Left basilar airspace disease is stable. There is no pneumothorax. Osseous structures are unchanged. IMPRESSION: 1. Interval increase in right pleural effusion; possibly loculated. 2. Redemonstration cardiomegaly with sequela of CHF including mixed interstitial and alveolar edema. 3. Stable left basilar effusion with associated atelectasis and/or infiltrate. Dictated by: Dictated on workstation # [id number]
[2020-12-04] MEDS ORDERED: meTOprolol 5 MG/5 ML (LOPRESSOR) VIAL IV ONE ×2 (12:45→16:45)
--- NOTE | 2020-12-04 13:10 | Progress Note - Hospitalist ---
Subjective HPI/CC On Admission Date Seen by Provider: Dec 04, 2020 Time Seen by Provider: 08:55 Pt is an 85yoCF with a PMH of HTN who presented to the ER due to shortness of breath. She states she has been short of breath for a while but tries to not go to the doctor. Last night her daughter visited her and noticed how short of key ath she was and brought her to the ER for evlauation. She was found to be quite hypoxic on arrivla with saats in the 70s. She was found to be in heart failure on CXR but has no past medical history of this. She was admitted to the ICU and was given lasix and states she is feeling much better today. She states she has been peeing a lot and feels better. 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 She is quite thin and she states she last 30 lbs a few years ago and has not been able to put it back on. Subjective/Events-last exam She is more fatigued today. She is sitting in her chair eating breakfast. She is now wearing Vapotherm. She denies shortness of breath. She reports no complaints. Objective Exam Vital Signs Vital Signs Date Time Temp Pulse Resp B/P (MAP) Pulse Ox O2 Delivery O2 Flow Rate FiO2 12/04/20 12:00 116 20 89/70 (76) 92 Vapotherm 40.00 70.00 12/04/20 10:44 80 12/04/20 00:47 37.5 Capillary Refill : Less Than 3 SecondsLess Than 3 Seconds General Appearance: No Apparent Distress, Chronically ill, Thin Respiratory: No Respiratory Distress, Decreased Breath Sounds Cardiovascular: No Edema, Systolic Murmur, Irregularly Irregular, Tachycardia Gastrointestinal: Normal Bowel Sounds, Non Tender, Soft Extremity: Normal Inspection, Non Tender, No Pedal Edema Neurologic/Psychiatric: Alert, Oriented x3, No Motor/Sensory Deficits, Normal Mood/Affect Skin: Normal Color, Warm/Dry Results/Procedures Lab Laboratory Tests 12/04/20 02:38 Patient resulted labs reviewed. Imaging: Reviewed Imaging Report Assessment/Plan Assessment and Plan Assess & Plan/Chief Complaint Acute hypoxic and hypercapnic respiratory failure Acutely decompensated HFpEF New onset atrial fibrillation NSTEMI, type II Pulmonary hypertension Moderate to severe aortic stenosis Essential hypertension Pneumonia s/p endotracheal intubation Pulmonology consulted, appreciate assistance Cardiology consulted, appreciate assistance Now in normal sinus rhythm Echo with normal EF, restrictive pattern, pulmonary hypertension Continue Lasix Continue therapeutic Lovenox Continue Cefepime Considering transfer for aortic stenosis evaluation CO2 narcosis, resolved Diagnosis/Problems Diagnosis/Problems (1) Acute respiratory failure Status: Acute Qualifiers: Respiratory failure complication: hypoxia and hypercapnia Qualified Codes: J96.01 - Acute respiratory failure with hypoxia; J96.02 - Acute respiratory failure with hypercapnia (2) CO2 narcosis Status: Resolved Resolution Date/Time: 12/03/20 @ 14:35 (3) NSTEMI (non-ST elevated myocardial infarction) Status: Acute (4) Atrial fibrillation Status: Acute Qualifiers: Atrial fibrillation type: paroxysmal Qualified Codes: I48.0 - Paroxysmal atrial fibrillation (5) New onset of congestive heart failure Status: Acute (6) Aortic stenosis Status: Acute (7) PNA (pneumonia) Status: Acute ANASTACIA STEWART MD Dec 04, 2020 13:10
--- NOTE | 2020-12-04 14:16 | Occupational Ther Daily Note ---
OT Current Status-Daily Note Subjective No pain reported. ADL-Treatment Therapy Code Descriptions/Definitions Functional [place] Measure: 0=Not Assessed/NA 4=Minimal Assistance 1=Total Assistance 5=Supervision or Setup 2=Maximal Assistance 6=Modified [place] 3=Moderate Assistance 7=Complete IndependenceSCALE: Activities may be completed with or without assistive devices. 1-Itvxigkrvw-qeplaib completes the activity by him/herself with no assistance from a helper. 5-Set-up or Clean-up Assistance-helper sets up or cleans up; patient completes activity. [place] assists only prior to or following the activity. 4-Supervision or Touching Assistance-helper provides verbal cues and/or touching/steadying and/or contact guard assistance as patient completes activity. Assistance may be provided throughout the activity or intermittently. 3-Partial/Moderate Assistance-helper does LESS THAN HALF the effort. [place] lifts, holds or supports trunk or limbs, but provides less than half the effort. 2-Substantial/Maximal Assistance-helper does MORE THAN HALF the effort. [place] lifts or holds trunk or limbs and provides more than half the effort. 8-Fwafknrak-gbwjbt does ALL the effort. Patient does none of the effort to complete the activity. Or, the assistance of 2 or more helpers is required for the patient to complete the activity. If activity was not attempted, code reason: 7-Patient Refused. 9-Not Applicable-not attempted and the patient did not perform the activity before the current illness, exacerbation or injury. 10-Not Attempted due to Environmental Limitations-(lack of equipment, weather restraints, etc.). 88-Not Attempted due to Medical Conditions or Safety Concerns. Other Treatment Pt. in bed. OT speaks with bing previous to working with pt. Komalter reports that pt. was up during the night, and has had a difficult day. She was up in chair earlier, and was awake, but requested to lay back down. After being put to bed, she fell asleep. OT attempts to wake pt. Pt. can open eyes with max prompts, but closes them again. OT brushes pt's hair, and performs UE gentle PROM to bilateral UE. Pt. occasionally opens eyes, but does not verbalize. Pt. is able to slightly participate with OT to wash her own face. OT places warm washcloth in pt's hand, and she is able to dab at cheek. She puts her hand down and so OT washes face for her. All needs met in room. Sitter continues to monitor pt. Education OT Patient Education: Correct positioning, Exercise program, Modified ADL techniques, Progress toward Goal/Update tx plan, Purpose of tx/functional activities, Reviewed precautions, Rehab process, Transfer techniques Teaching Recipient: Patient Teaching Methods: Discussion Response to Teaching: Unable to Comprehend OT Short Term Goals Short Term Goals Time Frame: Dec 10, 2020 Eatin Oral hygiene: 3 Toileting hygiene: 3 Shower/bathe self: 3 Upper body dressin Lower body dressin Putting on/taking off footwear: 3 OT Measurement Operator Goals Measurement Operator Goals Time Frame: Dec 17, 2020 Eating (QC): 6 Oral Hygiene (QC): 5 Toileting Hygiene (QC): 4 Shower/Bathe Self (QC): 4 Upper Body Dressing (QC): 5 Lower Body Dressing (QC): 4 On/Off Footwear (QC): 4 Additional Goals: 1-Demonstrate ADL Tasks, 2-Verbalize Understanding, 3- ImproveStrength/[place] 1=Demonstrate adherence to instructed precautions during ADL tasks. 2=Patient will verbalize/demonstrate understanding of assistive devices/modifications for ADL. 3=Patient will improve strength/tolerance for activity to enable patient to perform ADL's. OT Education/Plan Problem List/Assessment Assessment: Decreased Activ Tolerance, Decreased Safety Aware, Decreased UE Strength, Dependent Transfers, Impaired Bed Mobility, Impaired Cognition, Impaired Coordination, Impaired Funct Balance, Impaired I ADL's, Impaired Self- Care Skills, Restricted Funct UE ROM Discharge Recommendations Plan/Recommendations: Continue POC Therapy Discharge Recommendati: 24 Hour Supervision Treatment Plan/Plan of Care Treatment,Training & Education: Yes Patient would benefit from OT for education, treatment and training to promote independence in ADL's, mobility, safety and/or upper extremity function for ADL's. Plan of Care: ADL Retraining, Functional Mobility, UE Funct Exercise/Act Treatment Duration: Dec 17, 2020 Frequency: 5 times per week Estimated Hrs Per Day: .25 hour per day Agreement: Yes Rehab Potential: Fair Time/GCodes Start Time: 10:20 Stop Time: 10:30 Total Time Billed (hr/min): 10 Billed Treatment Time 1, ADL x 10minutes TIN CRUZ OT Dec 04, 2020 14:16
[2020-12-04] MEDS ORDERED: meTOprolol 5 MG/5 ML (LOPRESSOR) VIAL ONE (16:41)
[2020-12-04] MEDS ORDERED: ALBUMIN 25% 25 GM/100 ML 50 ML IV ONE (19:00)
[2020-12-04] MEDS ORDERED: DIGOXIN 0.25 MG/ML (LANOXIN) 2 ML AMP IV NR (19:00)
[2020-12-04] MEDS ORDERED: AMIODARONE FOR BOLUS 150 MG in D5W 100 ML IVPB 100 ML IV SCH (19:53)
[2020-12-04] MEDS: AMIODARONE INJECTION 450 MG in D5W IV SOLUTION (EXCEL) 250 ML IV SCH (20:19)
[2020-12-04] MEDS ORDERED: NS (IVPB) 250 ML ONE ×2 (20:48→23:52)
[2020-12-04] MEDS ORDERED: PHENYLEPHRINE INJ 10 MG/ML (FOR DRIP KITS ONLY) ONE (20:48)
[2020-12-04 21:11] LABS: ABG BASE EXCESS 11.1 MMOL/L (-2.5-2.5); ABG OXYGEN SATURATION 96 % (94-100); ABG PCO2 59 MMHG (35-45); ABG PH 7.41 (7.37-7.43); ABG PO2 77 MMHG (79-93); ABG TCO2 38.1 MMOL/L (21.0-31.0)
[2020-12-04 21:12] LABS: ALLENS TEST YES-POS; PATIENT TEMP 36.8; VENTILATOR NO
[2020-12-04 21:34] LABS: BASOPHILS % (AUTO) 0 % (0-10); EOSINOPHILS % (AUTO) 0 % (0-10); HEMATOCRIT 37 % (35-52); HEMOGLOBIN 11.7 g/dL (11.5-16.0); LYMPHOCYTES # (AUTO) 0.4 10^3/uL (1.0-4.0); LYMPHOCYTES % (AUTO) 7 % (12-44); MEAN CORPUSCULAR HEMOGLOBIN 31 pg (25-34); MEAN CORPUSCULAR HGB CONC 32 g/dL (32-36); MEAN CORPUSCULAR VOLUME 98 fL (80-99); MEAN PLATELET VOLUME 11.9 fL (9.0-12.2); MONOCYTES # (AUTO) 0.7 10^3/uL (0.0-1.0); MONOCYTES % (AUTO) 12 % (0-12); NEUTROPHILS # (AUTO) 4.9 10^3/uL (1.8-7.8); NEUTROPHILS % (AUTO) 81 % (42-75); PLATELET COUNT 144 10^3/uL (130-400); WHITE BLOOD COUNT 6.1 10^3/uL (4.3-11.0)
[2020-12-04 21:44] LABS: ALANINE AMINOTRANSFERASE 33 U/L (0-55); ALBUMIN 3.3 GM/DL (3.2-4.5); ALKALINE PHOSPHATASE 86 U/L (40-136); BILIRUBIN,TOTAL 0.7 MG/DL (0.1-1.0); BUN/CREATININE RATIO 19; CALCIUM 8.4 MG/DL (8.5-10.1); CARBON DIOXIDE 32 MMOL/L (21-32); CHLORIDE 93 MMOL/L (98-107); CREATININE SERUM 0.57 MG/DL (0.60-1.30); GFR ESTIMATED > 60; GLUCOSE 166 MG/DL (70-105); POTASSIUM 3.8 MMOL/L (3.6-5.0); SODIUM 136 MMOL/L (135-145); TOTAL PROTEIN 5.4 GM/DL (6.4-8.2)
[2020-12-04] MEDS ORDERED: NS (IVPB) 100 ML ONE ×2 (22:13→23:50)
[2020-12-04] MEDS ORDERED: dilTIAZem DRIP PRE-MIX 125 ML IV ONE (22:14)
[2020-12-04] MEDS: dilTIAZem DRIP PRE-MIX 125 ML IV SCH (22:22)
[2020-12-04 22:24] LABS: BAND NEUTROPHILS 0 %; LYMPHOCYTES % (MANUAL) 5 %; NEUTROPHILS % (MANUAL) 83 %
[2020-12-04 22:25] LABS: BASOPHILS % (MANUAL) 0 %; EOSINOPHILS % (MANUAL) 0 %; MONOCYTES % (MANUAL) 12 %; RBC MORPH NORMAL
[2020-12-04] MEDS: risperiDONE 1 MG (RisperDAL) TAB PO SCH (22:25)
[2020-12-04] MEDS ORDERED: NS IV 1000 ML 1,000 ML ONE (22:55)
[2020-12-04] MEDS ORDERED: VANCOMYCIN 750 MG/NS 250 ML IVPB IV SCH ×2 (23:00)
[2020-12-04] MEDS ORDERED: proPOfol 200 MG/20 ML (DIPRIVAN) VIAL IV ONE (23:09)
[2020-12-04] MEDS: PHENYLEPHRINE INJECTION 10 MG in NS (IVPB) 250 ML IV SCH (23:36)
--- NOTE | 2020-12-04 23:46 | Anesthesia-Procedure Note ---
Procedures/Interventions Procedure Start/Stop/Diagnosis Date of Procedure: Dec 04, 2020 Start Time: 23:10 Stop Time: 23:40 Intubation 100% pre-Ox, [id number]: Yes Intubation Method: orotracheal Videoscope used: Yes ([place]) Grade View: 1 Medications: Propofol (80), Rocuronium (30), Succinylcholine (60) Mask Ventilation: positive Positive End Tide CO2: Yes Breath Sounds after Intubation: bilateral-equal ETT Securred @ (cm): 21 Intubated with ease: Yes Intubation Complications: no complications Post Intubation Xray-done: Yes Post Procedure Intubated without difficulty. A-line placed with ultrasound x1 attempt without difficulty Care turned over to: BUS PERSON and staff Arterial Line Arterial Line Catheter: 20G Type: Radial Location: Left Procedure: prepped, draped in sterile fashion, good wave-form was obtained, patient tolerated procedure well, no immediate complications, post procedure area cleaned, post procedure dressing applied ANUM VALDEZ CRNA Dec 04, 2020 23:46
[2020-12-04] MEDS ORDERED: VASOPRESSIN INJECTION 20 UNIT/ML VIAL ONE (23:51)
[2020-12-05] VITALS (31 sets, daily range): BP systolic 81–138; BP diastolic 48–87
[2020-12-05] MEDS ORDERED: VASOPRESSIN INJECTION 20 UNIT in NS (IVPB) 100 ML IV SCH ×2
[2020-12-05] MEDS ORDERED: NS (IVPB) 250 ML IV ONE
[2020-12-05] MEDS: CEFEPIME INJECTION 1,000 MG in WATER (STERILE) FOR INJECTION 10 ML IV SCH ×4 (00:08→18:56)
[2020-12-05] MEDS: PROPOFOL DRIP (ICU) 100 ML IV SCH ×4 (00:08→21:32)
[2020-12-05] MEDS: RT-ALBUTEROL/IPRATROPIUM 3 ML (DUONEB) VIAL INH SCH ×6 (01:28→22:08)
[2020-12-05 03:29] LABS: ABG BASE EXCESS 10.9 MMOL/L (-2.5-2.5); ABG OXYGEN SATURATION 100 % (94-100); ABG PCO2 38 MMHG (35-45); ABG PH 7.56 (7.37-7.43); ABG PO2 194 MMHG (79-93); ABG TCO2 35.5 MMOL/L (21.0-31.0); BASOPHILS % (AUTO) 0 % (0-10); EOSINOPHILS % (AUTO) 0 % (0-10); HEMATOCRIT 34 % (35-52); HEMOGLOBIN 10.9 g/dL (11.5-16.0); LYMPHOCYTES # (AUTO) 0.4 10^3/uL (1.0-4.0); LYMPHOCYTES % (AUTO) 6 % (12-44); MEAN CORPUSCULAR HEMOGLOBIN 31 pg (25-34); MEAN CORPUSCULAR HGB CONC 32 g/dL (32-36); MEAN CORPUSCULAR VOLUME 97 fL (80-99); MEAN PLATELET VOLUME 11.8 fL (9.0-12.2); MONOCYTES # (AUTO) 0.9 10^3/uL (0.0-1.0); MONOCYTES % (AUTO) 12 % (0-12); NEUTROPHILS # (AUTO) 5.7 10^3/uL (1.8-7.8); NEUTROPHILS % (AUTO) 81 % (42-75); PLATELET COUNT 155 10^3/uL (130-400)
[2020-12-05 03:31] LABS: ALLENS TEST YES-POS; INSPIRED O2 80%; PATIENT TEMP 36.2; VENTILATOR NO
[2020-12-05 03:46] LABS: BUN/CREATININE RATIO 20; CARBON DIOXIDE 30 MMOL/L (21-32); CHLORIDE 94 MMOL/L (98-107); CREATININE SERUM 0.56 MG/DL (0.60-1.30); GFR ESTIMATED > 60; GLUCOSE 137 MG/DL (70-105); MAGNESIUM 1.6 MG/DL (1.6-2.4); POTASSIUM 3.7 MMOL/L (3.6-5.0); SODIUM 136 MMOL/L (135-145)
--- NOTE | 2020-12-05 04:47 | Pulmonary Progress Note ---
Subjective Time Seen by a Provider: 04:41 Subjective/Events-last exam Pt went into Afib last night and also became hypotensive. Sepsis Event Evaluation Height, Weight, BMI Height: '" Weight: lbs. oz. kg; 18.36 BMI Method: Focused Exam Lactate Level 12/04/20 21:10: Lactic Acid Level 1.64 Exam Exam Vital Signs Date Time Temp Pulse Resp B/P (MAP) Pulse Ox O2 Delivery O2 Flow Rate FiO2 12/05/20 04:00 36.6 Mechanical Ventilator 60.00 12/05/20 04:00 110 23 93/69 (77) 97 Mechanical Ventilator 70.00 12/05/20 04:00 97 Mechanical Ventilator 70 12/05/20 03:00 82 23 116/77 (90) 99 Mechanical Ventilator 70.00 12/05/20 02:00 101 23 106/68 (81) 95 Mechanical Ventilator 70.00 12/05/20 01:29 128 24 100 70 12/05/20 01:00 129 12/05/20 01:00 134 24 118/71 (87) 99 Mechanical Ventilator 70.00 12/05/20 01:00 144 12/05/20 00:08 151 12/05/20 00:00 96 Mechanical Ventilator 70 12/05/20 00:00 Mechanical Ventilator 70.00 12/05/20 00:00 140 24 81/49 (60) 96 Mechanical Ventilator 70.00 12/04/20 23:50 Mechanical Ventilator 100.00 12/04/20 23:36 122 12/04/20 23:33 142 24 95 100 12/04/20 23:31 137 12/04/20 23:30 36.4 12/04/20 23:00 125 23 69/59 (62) 98 Vapotherm 40.00 80.00 12/04/20 22:00 156 24 118/84 (95) 92 Vapotherm 40.00 80.00 12/04/20 21:28 95 Vapotherm 40.00 80 12/04/20 21:00 152 22 116/95 (102) 94 Vapotherm 40.00 80.00 12/04/20 20:28 Vapotherm 40.00 80.00 12/04/20 20:06 160 12/04/20 20:00 92 Vapotherm 30.00 80 12/04/20 20:00 161 22 93/79 (84) 97 Vapotherm 20.00 70.00 12/04/20 19:29 36.8 Vapotherm 20.00 70.00 12/04/20 19:00 146 24 109/83 (92) 94 Vapotherm 40.00 70.00 12/04/20 19:00 111 12/04/20 18:21 93 Vapotherm 20.00 70 12/04/20 16:08 94 Vapotherm 20.00 70 12/04/20 15:18 92 Vapotherm 20.00 70 12/04/20 14:39 36.8 12/04/20 14:00 80 14 103/72 (82) 94 Vapotherm 40.00 70.00 12/04/20 13:00 133 27 109/97 (101) 91 Vapotherm 40.00 70.00 12/04/20 12:45 94 Vapotherm 20.00 70 12/04/20 12:31 111 12/04/20 12:00 116 20 89/70 (76) 92 Vapotherm 40.00 70.00 12/04/20 11:00 129 26 105/88 (94) 92 Vapotherm 40.00 70.00 12/04/20 10:53 Vapotherm 40.00 70.00 12/04/20 10:44 97 Vapotherm 20.00 80 12/04/20 10:00 81 27 102/79 (87) 88 Vapotherm 40.00 100.00 12/04/20 09:00 129 19 92 Vapotherm 40.00 100.00 12/04/20 08:15 95 Vapotherm 20.00 80 12/04/20 08:00 98 25 129/96 (107) 93 Vapotherm 40.00 100.00 12/04/20 07:29 95 Vapotherm 20.00 80 12/04/20 07:00 73 16 106/64 (78) 96 Vapotherm 40.00 100.00 12/04/20 06:45 88 12/04/20 06:00 107 23 129/110 (116) 91 Vapotherm 40.00 100.00 12/04/20 05:00 106 33 122/102 (109) 92 Vapotherm 40.00 100.00 12/04/20 04:57 Vapotherm 40.00 100.00 12/04/20 04:55 91 Vapotherm 40.00 100 I & O 12/05/20 07:00 Intake Total 2220 ml Output Total 2950 ml Balance -730 ml Height & Weight Height: '" Weight: lbs. oz. kg; 18.36 BMI Method: General Appearance: No Apparent Distress, Chronically ill, Thin HEENT: PERRL/EOMI, Moist Mucous Membranes; No Scleral Icterus (L), No Scleral Icterus (R) Neck: Normal Inspection, Supple Respiratory: No Respiratory Distress, Decreased Breath Sounds Cardiovascular: No Edema, Systolic Murmur, Irregularly Irregular, Tachycardia Capillary Refill: Less Than 3 Seconds Gastrointestinal: soft, tenderness (Very slight tenderness to the right of suprapubic) Extremity: Normal Inspection, Non Tender, No Pedal Edema Neurologic/Psychiatric: Alert, Oriented x3, No Motor/Sensory Deficits, Normal Mood/Affect Skin: Normal Color, Warm/Dry Results Lab Laboratory Tests 12/04/20 02:38 12/04/20 21:10 12/05/20 03:05 Assessment/Plan Assessment/Plan Acute respiratory failure -Intubated 12/01 -Extubated 12/02 -Reintubated 12/04 secondary to acute afib rvr and hypotension -Admitted 11/30 -Vent 350/24/10 -Decrease RR to 20 and repeat ABG in 1hr. -Pt used bipap through the night Acute Afib rvr - onset 12/04 -Cardiology following -Cardizem gtt -S/p Amio bolus Hypotensive -Currently Neosynephrin -Vasopressin -Hold Lasix -Consult surgery for central line. 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
[2020-12-05] MEDS: LACTATED RINGERS 1,000 ML IV SCH ×2 (05:33→18:53)
[2020-12-05] MEDS: POTASSIUM CL 10MEQ/50ML IVPB 50 ML IV SCH ×4 (05:47→11:36)
[2020-12-05] MEDS: MAGNESIUM 1 GM/100 ML IVPB 100 ML IV SCH ×4 (05:48→08:01)
[2020-12-05] MEDS: KCL 20 MEQ TAB (K-DUR) PO SCH (05:48)
[2020-12-05 06:44] LABS: ABG BASE EXCESS 11.5 MMOL/L (-2.5-2.5); ABG OXYGEN SATURATION 100 % (94-100); ABG PCO2 42 MMHG (35-45); ABG PH 7.53 (7.37-7.43); ABG PO2 151 MMHG (79-93); ABG TCO2 36.6 MMOL/L (21.0-31.0)
[2020-12-05 06:45] LABS: ALLENS TEST YES-POS; INSPIRED O2 40%; PATIENT TEMP 36.6; VENTILATOR YES
--- NOTE | 2020-12-05 07:24 | Diagnostic Imaging Report ---
INDICATION: Pneumonia. Comparison made with prior examination from 12/04/2020 FINDINGS: There is cardiomegaly. There is some venous congestion. Lines and tubes in satisfactory position. Some persistent pleural thickening on the right although this is improved. IMPRESSION: Persistent pleural thickening on the right although this is improved. Cardiomegaly and some central pulmonary venous congestion. Dictated by: Dictated on workstation # [id number]
[2020-12-05] MEDS ORDERED: SODIUM PHOSPHATE INJ 30 MM in NS (IVPB) 250 ML INJ ONE (08:00)
--- NOTE | 2020-12-05 08:09 | Physical Therapy Progress Note ---
Therapy Progress Note Patient is currently reintubated and sedated. PT will continue to monitor patient status. ALTON HENAO PT Dec 05, 2020 08:09
[2020-12-05] MEDS: AMIODARONE INJECTION 450 MG in D5W IV SOLUTION (EXCEL) 250 ML IV SCH (08:48)
--- NOTE | 2020-12-05 08:55 | Diagnostic Imaging Report ---
INDICATION: Right-sided PICC line placement. Frontal chest obtained at 08:46 a.m. and compared to 12/04/2020. FINDINGS: There is increased cardiomegaly. There is central vascular congestion with interstitial edema and bibasilar infiltrate. There is some left pleural fluid. ET tube tip overlies mid trachea. NG tube tip is below the film. The patient has a new right IJ PICC line, tip is poorly seen due to technique but appears overlie the mid SVC. IMPRESSION: Cardiomegaly with central vascular congestion and bibasilar infiltrates and left pleural effusion. New right-sided PICC line not well seen due to technique but tip appears to overlie the mid SVC. Dictated by: Dictated on workstation # [id number]
[2020-12-05] MEDS ORDERED: ROCURONIUM 10 MG/ML 5 ML SYRINGE IV ONE (08:56)
[2020-12-05] MEDS ORDERED: SUCCINYLCHOLINE INJ 100 MG/5 ML SYR/VIAL INJ ONE (08:56)
--- NOTE | 2020-12-05 08:57 | Cardiology Progress Note ---
Subjective Date Seen by Provider: Dec 05, 2020 Time Seen by Provider: 08:54 Subjective/Events-last exam Patient is sedated and intubated Review of Systems General: Other (Unable to provide review of system) Focused Exam Lactate Level 12/04/20 21:10: Lactic Acid Level 1.64 Objective-Cardiology Exam Last Set of Vital Signs Vital Signs 12/05/20 12/05/20 12/05/20 04:00 06:00 06:10 Temp 36.6 Pulse 74 Resp 20 B/P (MAP) 120/74 (89) Pulse Ox 98 O2 Delivery Mechanical Ventilator O2 Flow Rate 40.00 FiO2 40 Capillary Refill : Less Than 3 SecondsLess Than 3 Seconds I&O Intake and Output 12/05/20 00:00 Intake Total 1720 ml Output Total 3450 ml Balance -1730 ml Intake Oral 1200 ml IV Total 520 ml Output Urine Total 3450 ml General: Other (Sedated and intubated) HEENT: Atraumatic, PERRLA Neck: Supple Lungs: Normal Air Movement, Other (With rales at the bases) Heart: Normal S1, Normal S2, Other (Systolic murmur at the left sternal border) Abdomen: Normal Bowel Sounds Extremities: No Clubbing, No Cyanosis Skin: No Rashes Neuro: Other (Sedated and intubated) Psych/Mental Status: Other (Sedated and intubated) Results Lab Laboratory Tests 12/04/20 21:10 12/05/20 03:05 A/P-Cardiology Admission Diagnosis Acute respiratory failure Atrial fibrillation Congestive heart failure Aortic valve stenosis Assessment/Plan Status post acute respiratory failure, acute pulmonary edema, was intubated and extubated recently, reintubated on December 04, 2020 due to acute respiratory failure and flash pulmonary edema. Currently ventilator dependent. Managed by primary care team Congestive heart failure, echocardiogram was reported to have ejection fraction 55 to 65%, moderate to severe aortic stenosis, mitral regurgitation, severe pulmonary hypertension with PA pressure 80 to 85 mmHg. Continue with Lasix, patient probably will require evaluation for aortic valve replacement Atrial fibrillation, rate is controlled, having few episodes of tachycardia. Continue to monitor Mild elevation in troponin, probably type II myocardial infarction secondary to hypoxemia and respiratory failure. Continue to monitor, patient will need to have a cardiac catheterization done Moderate to severe aortic valve stenosis, consideration for referral for valve replacement, had a long discussion with the family, I spoke to her son and daughter regarding possible referral to a tertiary care center Severe pulmonary hypertension, probably secondary to COPD and left ventricular diastolic dysfunction with valvular heart disease with moderate to severe aortic stenosis SMITH TRAORE MD Dec 05, 2020 08:57
[2020-12-05] MEDS ORDERED: PANTOPRAZOLE 40 MG (PROTONIX) TAB PO SCH (09:00)
[2020-12-05 09:34] LABS: ABG BASE EXCESS 11.7 MMOL/L (-2.5-2.5); ABG OXYGEN SATURATION 98 % (94-100); ABG PCO2 54 MMHG (35-45); ABG PH 7.45 (7.37-7.43); ABG PO2 94 MMHG (79-93)
[2020-12-05 09:41] LABS: INSPIRED O2 40%; PATIENT TEMP 98.5; VENTILATOR NO
--- NOTE | 2020-12-05 10:41 | Occ Therapy Progress Note ---
Therapy Progress Note Pt. currently on hold due to being re-intubated and sedated. Will continue to monitor pt. 1040 TIN CRUZ OT Dec 05, 2020 10:41
[2020-12-05] MEDS: PHENYLEPHRINE INJECTION 10 MG in NS (IVPB) 250 ML IV SCH ×2 (11:37→16:41)
[2020-12-05] MEDS: ENOXAPARIN 300 MG/3 ML (LOVENOX) MULTI-DOSE VIAL SQ SCH ×2 (12:20→20:21)
--- NOTE | 2020-12-05 12:23 | Progress Note - Hospitalist ---
Subjective HPI/CC On Admission Date Seen by Provider: Dec 05, 2020 Time Seen by Provider: 08:50 Pt is an 85yoCF with a PMH of HTN who presented to the ER due to shortness of breath. She states she has been short of breath for a while but tries to not go to the doctor. Last night her daughter visited her and noticed how short of kylee th she was and brought her to the ER for evlauation. She was found to be quite hypoxic on arrivla with saats in the 70s. She was found to be in heart failure on CXR but has no past medical history of this. She was admitted to the ICU and was given lasix and states she is feeling much better today. She states she has been peeing a lot and feels better. 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 She is quite thin and she states she last 30 lbs a few years ago and has not been able to put it back on. Subjective/Events-last exam She is intubated and sedated. Her family is at the bedside. They have been updated on her clinical condition. There is a plan for a family meeting at 1 PM. Focused Exam Lactate Level 12/04/20 21:10: Lactic Acid Level 1.64 Objective Exam Vital Signs Vital Signs Date Time Temp Pulse Resp B/P (MAP) Pulse Ox O2 Delivery O2 Flow Rate FiO2 12/05/20 11:37 101 89/58 12/05/20 11:00 16 96 Mechanical Ventilator 40.00 12/05/20 10:06 30 12/05/20 04:00 36.6 Capillary Refill : Less Than 3 SecondsLess Than 3 Seconds General Appearance: No Apparent Distress, Chronically ill, Other (Intubated and sedated) Respiratory: No Respiratory Distress, Crackles, Decreased Breath Sounds, Other (Intubated and mechanically ventilated) Cardiovascular: Irregularly Irregular, Tachycardia Gastrointestinal: Normal Bowel Sounds, Soft Extremity: Normal Inspection, No Pedal Edema Neurologic/Psychiatric: Other (sedated) Skin: Normal Color, Warm/Dry Results/Procedures Lab Laboratory Tests 12/04/20 21:10 12/05/20 03:05 Patient resulted labs reviewed. Imaging: Reviewed Imaging Report Assessment/Plan Assessment and Plan Assess & Plan/Chief Complaint Moderate to severe aortic stenosis Acutely decompensated HFpEF New onset atrial fibrillation with RVR Acute pulmonary edema Acute hypoxic and hypercapnic respiratory failure Endotracheally intubated Cardiogenic shock NSTEMI, type II Pulmonary hypertension Essential hypertension Pneumonia Re-intubated overnight Pulmonology consulted, appreciate assistance Cardiology consulted, appreciate assistance Reverted back to AFib with RVR Requiring pressor support Continue Lasix Continue therapeutic Lovenox Continue Cefepime Family meeting to discuss possible transfer for aortic stenosis evaluation versus palliative care/comfort care CO2 narcosis, resolved Diagnosis/Problems Diagnosis/Problems (1) Acute respiratory failure Status: Acute Qualifiers: Respiratory failure complication: hypoxia and hypercapnia Qualified Codes: J96.01 - Acute respiratory failure with hypoxia; J96.02 - Acute respiratory failure with hypercapnia (2) CO2 narcosis Status: Resolved Resolution Date/Time: 12/03/20 @ 14:35 (3) NSTEMI (non-ST elevated myocardial infarction) Status: Acute (4) Atrial fibrillation Status: Acute Qualifiers: Atrial fibrillation type: paroxysmal Qualified Codes: I48.0 - Paroxysmal atrial fibrillation (5) New onset of congestive heart failure Status: Acute (6) Aortic stenosis Status: Acute (7) PNA (pneumonia) Status: Acute (8) Cardiogenic shock Status: Acute (9) Endotracheally intubated Status: Acute (10) Paroxysmal atrial fibrillation with RVR Status: Acute ANASTACIA STEWART MD Dec 05, 2020 12:23
[2020-12-05] MEDS: risperiDONE 1 MG (RisperDAL) TAB PO SCH (21:20)
[2020-12-06] VITALS (31 sets, daily range): BP systolic 91–125; BP diastolic 42–79
[2020-12-06] MEDS: CEFEPIME INJECTION 1,000 MG in WATER (STERILE) FOR INJECTION 10 ML IV SCH ×5 (00:48→23:50)
[2020-12-06] MEDS: dilTIAZem DRIP PRE-MIX 125 ML IV SCH ×2 (00:59→11:24)
[2020-12-06 01:54] LABS: BASOPHILS % (AUTO) 0 % (0-10); EOSINOPHILS # (AUTO) 0.1 10^3/uL (0.0-0.3); EOSINOPHILS % (AUTO) 1 % (0-10); HEMATOCRIT 34 % (35-52); LYMPHOCYTES # (AUTO) 0.5 10^3/uL (1.0-4.0); LYMPHOCYTES % (AUTO) 10 % (12-44); MEAN CORPUSCULAR HEMOGLOBIN 31 pg (25-34); MEAN CORPUSCULAR HGB CONC 33 g/dL (32-36); MEAN CORPUSCULAR VOLUME 96 fL (80-99); MEAN PLATELET VOLUME 11.2 fL (9.0-12.2); MONOCYTES # (AUTO) 0.8 10^3/uL (0.0-1.0); MONOCYTES % (AUTO) 15 % (0-12); NEUTROPHILS % (AUTO) 74 % (42-75); PLATELET COUNT 165 10^3/uL (130-400); WHITE BLOOD COUNT 5.4 10^3/uL (4.3-11.0)
[2020-12-06 01:55] LABS: ABG BASE EXCESS 10.7 MMOL/L (-2.5-2.5); ABG OXYGEN SATURATION 98 % (94-100); ABG PCO2 51 MMHG (35-45); ABG PH 7.45 (7.37-7.43); ABG PO2 98 MMHG (79-93); ABG TCO2 36.9 MMOL/L (21.0-31.0)
[2020-12-06 01:58] LABS: ALLENS TEST YES-POS; INSPIRED O2 30%; PATIENT TEMP 36.6; VENTILATOR YES
[2020-12-06 02:07] LABS: CHLORIDE 95 MMOL/L (98-107)
[2020-12-06 02:08] LABS: POTASSIUM 3.5 MMOL/L (3.6-5.0); SODIUM 134 MMOL/L (135-145)
[2020-12-06] MEDS: RT-ALBUTEROL/IPRATROPIUM 3 ML (DUONEB) VIAL INH SCH ×6 (02:08→21:38)
[2020-12-06 02:09] LABS: CALCIUM 7.9 MG/DL (8.5-10.1); GLUCOSE 86 MG/DL (70-105)
[2020-12-06 02:10] LABS: TRIGLYCERIDES 89 MG/DL (<150)
[2020-12-06 02:11] LABS: CARBON DIOXIDE 30 MMOL/L (21-32)
[2020-12-06 02:13] LABS: CREATININE SERUM 0.48 MG/DL (0.60-1.30); GFR ESTIMATED > 60; PHOSPHORUS 2.6 MG/DL (2.3-4.7)
[2020-12-06 02:14] LABS: BUN/CREATININE RATIO 17
[2020-12-06 02:16] LABS: MAGNESIUM 2.1 MG/DL (1.6-2.4)
[2020-12-06] MEDS: POTASSIUM CL 10MEQ/50ML IVPB 50 ML IV SCH ×2 (02:31→06:23)
[2020-12-06] MEDS: PHENYLEPHRINE INJECTION 10 MG in NS (IVPB) 250 ML IV SCH ×2 (03:22→15:52)
[2020-12-06] MEDS: PROPOFOL DRIP (ICU) 100 ML IV SCH ×3 (03:47→23:10)
[2020-12-06] MEDS: MAGNESIUM 1 GM/100 ML IVPB 100 ML IV SCH (06:23)
[2020-12-06] MEDS: KCL 20 MEQ TAB (K-DUR) PO SCH (06:23)
--- NOTE | 2020-12-06 07:52 | Physical Therapy Progress Note ---
Therapy Progress Note PT to dismiss patient from services due to decline in medical status and is currently on ventilator. Per report, family has decided on DNR and will extubate this Wednesday. ALTON HENAO PT Dec 06, 2020 07:52
[2020-12-06] MEDS: ENOXAPARIN 300 MG/3 ML (LOVENOX) MULTI-DOSE VIAL SQ SCH ×2 (07:54→20:01)
[2020-12-06] MEDS: PANTOPRAZOLE 40 MG (PROTONIX) VIAL IV SCH (07:54)
[2020-12-06] MEDS: LACTATED RINGERS 1,000 ML IV SCH (07:55)
--- NOTE | 2020-12-06 08:01 | Diagnostic Imaging Report ---
INDICATION: Respiratory failure. COMPARISON: 12/05/2020 FINDINGS: Single frontal radiographic view of the chest was obtained and demonstrates indwelling endotracheal tube with tip below the clavicular heads above the becky. Gastric tube extends inferiorly beyond the [id number]. Right upper extremity PICC line is also seen with tip at the cavoatrial junction. Cardiac silhouette remains moderately enlarged. Pulmonary vasculature is mildly prominent. Lungs show interval progression of patchy airspace opacities within the right mid and lower lung field. Small bibasilar effusions are also noted. There is no pneumothorax. Osseous structures show no acute abnormalities. IMPRESSION: 1. Moderate cardiomegaly with persistent pulmonary vascular congestion. 2. Interval increase in patchy airspace infiltrate in the right mid and lower lung field. 3. Persistent small bibasilar effusions. 4. Lines and tubes as above. Dictated by: Dictated on workstation # [id number]
[2020-12-06] MEDS ORDERED: TROUGH ORDER-PHARMACY XX NR (10:00)
[2020-12-06] MEDS: fentaNYL INJ 100 MCG/2 ML AMP IVP PRN ×2 (10:43→15:18)
--- NOTE | 2020-12-06 11:43 | Progress Note - Hospitalist ---
Subjective HPI/CC On Admission Date Seen by Provider: Dec 06, 2020 Time Seen by Provider: 09:45 Pt is an 85yoCF with a PMH of HTN who presented to the ER due to shortness of breath. She states she has been short of breath for a while but tries to not go to the doctor. Last night her daughter visited her and noticed how short of kylee th she was and brought her to the ER for evlauation. She was found to be quite hypoxic on arrivla with saats in the 70s. She was found to be in heart failure on CXR but has no past medical history of this. She was admitted to the ICU and was given lasix and states she is feeling much better today. She states she has been peeing a lot and feels better. 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 She is quite thin and she states she last 30 lbs a few years ago and has not been able to put it back on. Subjective/Events-last exam She remains intubated and sedated. Focused Exam Lactate Level 12/04/20 21:10: Lactic Acid Level 1.64 Objective Exam Vital Signs Vital Signs Date Time Temp Pulse Resp B/P (MAP) Pulse Ox O2 Delivery O2 Flow Rate FiO2 12/06/20 11:24 97 99/50 12/06/20 11:00 17 91 Mechanical Ventilator 25.00 12/06/20 10:31 24 12/06/20 02:43 36.6 Capillary Refill : Less Than 3 SecondsLess Than 3 Seconds General Appearance: No Apparent Distress, Chronically ill, Other (Intubated and sedated) Respiratory: No Respiratory Distress, Crackles, Decreased Breath Sounds, Other (Intubated and mechanically ventilated) Cardiovascular: No Edema, Irregularly Irregular (Regular rhythm) Gastrointestinal: Normal Bowel Sounds, Soft Extremity: Normal Inspection, No Pedal Edema Neurologic/Psychiatric: Other (Sedated) Skin: Normal Color, Warm/Dry Results/Procedures Lab Laboratory Tests 12/06/20 01:47 Patient resulted labs reviewed. Imaging: Reviewed Imaging Report Assessment/Plan Assessment and Plan Assess & Plan/Chief Complaint Moderate to severe aortic stenosis Acutely decompensated HFpEF New onset atrial fibrillation with RVR Acute pulmonary edema Acute hypoxic and hypercapnic respiratory failure Endotracheally intubated Cardiogenic shock NSTEMI, type II Pulmonary hypertension Essential hypertension Pneumonia Re-intubated 12/05, ventilator requirements improving TeleICU assistance appreciated Pulmonology consulted, appreciate assistance Cardiology consulted, appreciate assistance HR better controlled Continue Amiodarone and Cardizem Still requiring some pressor support, weaning as able Stop IV fluids Continue therapeutic Lovenox Continue Cefepime Family decided to not pursue aortic valve replacement at this time and see how things progress over the next couple days DNR CO2 narcosis, resolved Diagnosis/Problems Diagnosis/Problems (1) Acute respiratory failure Status: Acute Qualifiers: Respiratory failure complication: hypoxia and hypercapnia Qualified Codes: J96.01 - Acute respiratory failure with hypoxia; J96.02 - Acute respiratory failure with hypercapnia (2) NSTEMI (non-ST elevated myocardial infarction) Status: Acute (3) Atrial fibrillation Status: Acute Qualifiers: Atrial fibrillation type: paroxysmal Qualified Codes: I48.0 - Paroxysmal atrial fibrillation (4) New onset of congestive heart failure Status: Acute (5) Aortic stenosis Status: Acute (6) PNA (pneumonia) Status: Acute (7) Cardiogenic shock Status: Acute (8) Endotracheally intubated Status: Acute (9) Paroxysmal atrial fibrillation with RVR Status: Acute (10) CO2 narcosis Status: Resolved Resolution Date/Time: 12/03/20 @ 14:35 ANASTACIA STEWART MD Dec 06, 2020 11:43
--- NOTE | 2020-12-06 15:37 | Cardiology Progress Note ---
Cardiology SOAP Progress Note Subjective: Intubated/ventilated. Objective: I&O/Vital Signs 12/06/20 12/06/20 12/06/20 12/06/20 04:00 04:00 05:00 06:00 Pulse 85 87 74 Resp 17 15 15 B/P (MAP) 106/55 (72) 106/58 (74) 119/61 (80) Pulse Ox 96 97 96 97 O2 Delivery Mechanical Ventilator Mechanical Ventilator Mechanical Ventilator Mechanical Ventilator O2 Flow Rate 30.00 30.00 30.00 FiO2 30 12/06/20 12/06/20 12/06/20 12/06/20 07:00 07:00 07:10 07:45 Pulse 84 88 76 90 Resp 16 16 16 B/P (MAP) 101/54 (70) 110/52 (71) Pulse Ox 96 96 94 O2 Delivery Mechanical Ventilator Mechanical Ventilator O2 Flow Rate 30.00 25.00 FiO2 30 12/06/20 12/06/20 12/06/20 12/06/20 08:00 08:06 09:00 09:31 Pulse 67 74 Resp 16 16 B/P (MAP) 111/58 (75) 122/60 (80) Pulse Ox 97 95 97 O2 Delivery Mechanical Ventilator Mechanical Ventilator Mechanical Ventilator Mechanical Ventilator O2 Flow Rate 25.00 25.00 FiO2 30 30 12/06/20 12/06/20 12/06/20 12/06/20 10:00 10:31 11:00 11:24 Pulse 91 76 101 97 Resp 16 16 17 B/P (MAP) 117/62 (80) 108/56 (73) 99/50 Pulse Ox 95 96 91 O2 Delivery Mechanical Ventilator Mechanical Ventilator O2 Flow Rate 25.00 25.00 FiO2 24 12/06/20 12/06/20 12/06/20 12/06/20 12:00 12:25 12:55 13:00 Pulse 93 99 95 Resp 16 17 B/P (MAP) 102/53 (69) 115/58 (77) Pulse Ox 93 97 94 O2 Delivery Mechanical Ventilator Mechanical Ventilator Mechanical Ventilator O2 Flow Rate 25.00 25.00 FiO2 30 12/06/20 12/06/20 12/06/20 14:00 15:00 15:29 Pulse 87 93 87 Resp 22 20 16 B/P (MAP) 113/59 (77) 100/52 (68) Pulse Ox 94 93 92 O2 Delivery Mechanical Ventilator Mechanical Ventilator O2 Flow Rate 25.00 25.00 FiO2 25 12/05/20 23:59 Intake Total 1820 ml Output Total 785 ml Balance 1035 ml Constitutional: appears stated age; No apparent distress; well-developed, well- nourished, other (intubated/ventilated) Respiratory: crackles Cardiovascular: irregularly irregular, S1 and S2, systolic murmur Gastrointestional: soft; No spleenomegaly Extremities: pedal edema; No clubbing, No cyanosis, No significant edema Neurologic/Psychiatric: no motor/sensory deficits, alert, normal mood/affect, oriented x 3, power is 5/5 both on sides Skin: No rash, No ulcerations Results/Procedures: Labs Laboratory Tests 12/06/20 01:47: White Blood Count 5.4, Red Blood Count 3.51L, Hemoglobin 11.0L, Hematocrit 34L, Mean Corpuscular Volume 96, Mean Corpuscular Hemoglobin 31, Mean Corpuscular Hemoglobin Concent 33, Red Cell Distribution Width 14.5, Platelet Count 165, Mean Platelet Volume 11.2, Immature Granulocyte % (Auto) 0, Neutrophils (%) (Auto) 74, Lymphocytes (%) (Auto) 10L, Monocytes (%) (Auto) 15H, Eosinophils (%) (Auto) 1, Basophils (%) (Auto) 0, Neutrophils # (Auto) 4.0, Lymphocytes # (Auto) 0.5L, Monocytes # (Auto) 0.8, Eosinophils # (Auto) 0.1, Basophils # (Auto) 0.0, Immature Granulocyte # (Auto) 0.0, Blood Gas Puncture Site LEFT RADIAL, Blood Gas Patient Temperature 36.6, Arterial Blood pH 7.45H, Arterial Blood Partial P ressure CO2 51H, Arterial Blood Partial Pressure O2 98H, Arterial Blood HCO3 35H , Arterial Blood Total CO2 36.9H, Arterial Blood Oxygen Saturation 98, Arterial Blood Base Excess 10.7H, Trever Test YES-POS, Blood Gas Ventilator Setting YES, Blood Gas Inspired Oxygen 30%, Sodium Level 134L, Potassium Level 3.5L, Chloride Level 95L, Carbon Dioxide Level 30, Anion Gap 9, Blood Urea Nitrogen 8, Creatinine 0.48L, Estimat Glomerular Filtration Rate > 60, BUN/Creatinine Ratio 17, Glucose Level 86, Calcium Level 7.9L, Phosphorus Level 2.6, Magnesium Level 2.1, Triglycerides Level 89 Microbiology 12/04/20 Gram Stain - Final, Complete 12/04/20 Sputum Culture - Final, Complete No growth 12/01/20 Blood Culture - Final, Complete No growth 12/01/20 Urine Culture - Final, Complete NO GROWTH A/P: Assessment/Dx: shortness of breath, acute respiratory failure, likely multifactorial history of CHF, Mild elevation of troponin, AF, moderate to severe MR, moderate to severe , Pulmonary HTN Plan: Status post acute respiratory failure, acute pulmonary edema, was intubated and extubated recently, reintubated on December 04, 2020 due to acute respiratory failure and flash pulmonary edema. Currently ventilator dependent. Managed by primary care team Congestive heart failure, echocardiogram was reported to have ejection fraction 55 to 65%, moderate to severe aortic stenosis, mitral regurgitation, severe pulmonary hypertension with PA pressure 80 to 85 mmHg. Continue with Lasix, pa tient probably will require evaluation for aortic valve replacement Atrial fibrillation, rate is controlled, having few episodes of tachycardia. Continue to monitor Mild elevation in troponin, probably type II myocardial infarction secondary to hypoxemia and respiratory failure. Continue to monitor, patient will need to have a cardiac catheterization done Moderate to severe aortic valve stenosis, consideration for referral for valve replacement, had a long discussion with the family, Dr. Patel spoke to her son and daughter regarding possible referral to a tertiary care center Severe pulmonary hypertension, probably secondary to COPD and left ventricular diastolic dysfunction with valvular heart disease with moderate to severe aortic stenosis Thank you for your consultation. Please call me if you have any questions. Adriano Ward MD, FACP, FACC, FSCAI, FHRS, CCDS Interventional Cardiology Cardiac Electrophysiology Vascular Medicine and Endovascular Interventions Focused Exam Lactate Level 12/04/20 21:10: Lactic Acid Level 1.64 José Miguel WARD MD Dec 06, 2020 15:37
[2020-12-06] MEDS: AMIODARONE 200 MG (CORDARONE) TAB PO SCH (17:24)
[2020-12-06] MEDS: risperiDONE 1 MG (RisperDAL) TAB PO SCH (20:01)
[2020-12-07] VITALS (19 sets, daily range): BP systolic 70–139; BP diastolic 46–77
[2020-12-07] MEDS: RT-ALBUTEROL/IPRATROPIUM 3 ML (DUONEB) VIAL INH SCH ×3 (01:53→10:20)
[2020-12-07 03:15] LABS: BASOPHILS % (AUTO) 1 % (0-10); EOSINOPHILS # (AUTO) 0.2 10^3/uL (0.0-0.3); EOSINOPHILS % (AUTO) 4 % (0-10); HEMATOCRIT 35 % (35-52); HEMOGLOBIN 11.1 g/dL (11.5-16.0); LYMPHOCYTES # (AUTO) 0.7 10^3/uL (1.0-4.0); LYMPHOCYTES % (AUTO) 16 % (12-44); MEAN CORPUSCULAR HEMOGLOBIN 31 pg (25-34); MEAN CORPUSCULAR HGB CONC 32 g/dL (32-36); MEAN CORPUSCULAR VOLUME 97 fL (80-99); MEAN PLATELET VOLUME 11.3 fL (9.0-12.2); MONOCYTES # (AUTO) 0.8 10^3/uL (0.0-1.0); MONOCYTES % (AUTO) 17 % (0-12); NEUTROPHILS # (AUTO) 2.8 10^3/uL (1.8-7.8); NEUTROPHILS % (AUTO) 62 % (42-75); PLATELET COUNT 163 10^3/uL (130-400); WHITE BLOOD COUNT 4.5 10^3/uL (4.3-11.0)
[2020-12-07 03:32] LABS: BUN/CREATININE RATIO 17; CALCIUM 7.8 MG/DL (8.5-10.1); CARBON DIOXIDE 29 MMOL/L (21-32); CHLORIDE 101 MMOL/L (98-107); CREATININE SERUM 0.46 MG/DL (0.60-1.30); GFR ESTIMATED > 60; MAGNESIUM 1.8 MG/DL (1.6-2.4); PHOSPHORUS 2.8 MG/DL (2.3-4.7); POTASSIUM 3.9 MMOL/L (3.6-5.0); SODIUM 141 MMOL/L (135-145)
[2020-12-07 03:47] LABS: GLUCOSE 55 MG/DL (70-105)
[2020-12-07] MEDS ORDERED: DEXTROSE 50% 50 ML (IMS) SYR ONE (03:55)
[2020-12-07 03:57] LABS: ABG BASE EXCESS 7.6 MMOL/L (-2.5-2.5); ABG OXYGEN SATURATION 94 % (94-100); ABG PCO2 45 MMHG (35-45); ABG PH 7.46 (7.37-7.43); ABG PO2 75 MMHG (79-93)
[2020-12-07] MEDS ORDERED: DEXTROSE 50% 50 ML (IMS) SYR IV ONE ×2 (04:00→11:30)
[2020-12-07 04:02] LABS: ALLENS TEST ART LINE; INSPIRED O2 25%; PATIENT TEMP 37.2; VENTILATOR YES
[2020-12-07] MEDS: MAGNESIUM 1 GM/100 ML IVPB 100 ML IV SCH (04:11)
[2020-12-07] MEDS: KCL 20 MEQ TAB (K-DUR) PO SCH (04:11)
[2020-12-07] MEDS: POTASSIUM CL 10MEQ/50ML IVPB 50 ML IV SCH (04:11)
[2020-12-07] MEDS: AMIODARONE 200 MG (CORDARONE) TAB PO SCH (08:26)
[2020-12-07] MEDS: PANTOPRAZOLE 40 MG (PROTONIX) VIAL IV SCH (08:26)
[2020-12-07] MEDS: ENOXAPARIN 300 MG/3 ML (LOVENOX) MULTI-DOSE VIAL SQ SCH (08:26)
[2020-12-07] MEDS: PROPOFOL DRIP (ICU) 100 ML IV SCH (08:27)
--- NOTE | 2020-12-07 09:39 | Diagnostic Imaging Report ---
EXAMINATION: Chest 1 view HISTORY: Respiratory failure COMPARISON: 12/24/2020 FINDINGS: Endotracheal tube tip terminates 2 cm above the becky. Gastric tube tip terminates below the field of view. Right upper extremity peripherally inserted central venous catheter tip terminates in the superior vena cava. There is mild edema. There is a small left effusion. Heart is mildly enlarged. No pneumothorax. Exam is unchanged. IMPRESSION: 1. Mild edema and small left effusion. Dictated by: Dictated on workstation # [id number]
--- NOTE | 2020-12-07 09:55 | Progress Note - Hospitalist ---
Subjective HPI/CC On Admission Date Seen by Provider: Dec 07, 2020 Time Seen by Provider: 09:15 Pt is an 85yoCF with a PMH of HTN who presented to the ER due to shortness of breath. She states she has been short of breath for a while but tries to not go to the doctor. Last night her daughter visited her and noticed how short of kylee th she was and brought her to the ER for evlauation. She was found to be quite hypoxic on arrivla with saats in the 70s. She was found to be in heart failure on CXR but has no past medical history of this. She was admitted to the ICU and was given lasix and states she is feeling much better today. She states she has been peeing a lot and feels better. 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 She is quite thin and she states she last 30 lbs a few years ago and has not been able to put it back on. Subjective/Events-last exam She remains intubated and sedated. Focused Exam Lactate Level 12/04/20 21:10: Lactic Acid Level 1.64 Objective Exam Vital Signs Vital Signs Date Time Temp Pulse Resp B/P (MAP) Pulse Ox O2 Delivery O2 Flow Rate FiO2 12/07/20 09:00 71 19 116/56 (76) 95 Mechanical Ventilator 24.00 12/07/20 08:00 24 12/07/20 07:51 37.1 Capillary Refill : Less Than 3 SecondsLess Than 3 Seconds General Appearance: No Apparent Distress, Chronically ill, Other (Intubated and sedated) Respiratory: Lungs Clear, No Respiratory Distress, Decreased Breath Sounds, Other (Intubated and mechanically ventilated) Cardiovascular: No Edema, Irregularly Irregular (Regular rate) Gastrointestinal: Normal Bowel Sounds, Soft; No Distended Extremity: Normal Inspection, No Pedal Edema Neurologic/Psychiatric: Other (Sedated) Skin: Normal Color, Warm/Dry Results/Procedures Lab Laboratory Tests 12/07/20 02:50 Patient resulted labs reviewed. Imaging: Reviewed Imaging Report Assessment/Plan Assessment and Plan Assess & Plan/Chief Complaint Moderate to severe aortic stenosis Acutely decompensated HFpEF New onset atrial fibrillation with RVR Acute hypoxic and hypercapnic respiratory failure Endotracheally intubated NSTEMI, type II Pulmonary hypertension Essential hypertension Pneumonia Re-intubated 12/05, ventilator requirements improving TeleICU assistance appreciated Pulmonology consulted, appreciate assistance Cardiology consulted, appreciate assistance HR better controlled Continue Amiodarone and Cardizem Continue therapeutic Lovenox Continue Cefepime Family decided to not pursue aortic valve replacement at this time and see how things progress over the next couple days DNR Cardiogenic shock, resolved Acute pulmonary edema, resolved CO2 narcosis, resolved Critical Care Critically Ill Patient Diagnosis/Problems Diagnosis/Problems (1) Acute respiratory failure Status: Acute Qualifiers: Respiratory failure complication: hypoxia and hypercapnia Qualified Codes: J96.01 - Acute respiratory failure with hypoxia; J96.02 - Acute respiratory failure with hypercapnia (2) NSTEMI (non-ST elevated myocardial infarction) Status: Acute (3) Atrial fibrillation Status: Acute Qualifiers: Atrial fibrillation type: paroxysmal Qualified Codes: I48.0 - Paroxysmal atrial fibrillation (4) New onset of congestive heart failure Status: Acute (5) Aortic stenosis Status: Acute (6) PNA (pneumonia) Status: Acute (7) Cardiogenic shock Status: Resolved Resolution Date/Time: 12/07/20 @ 09:55 (8) Endotracheally intubated Status: Acute (9) Paroxysmal atrial fibrillation with RVR Status: Resolved Resolution Date/Time: 12/07/20 @ 09:55 (10) CO2 narcosis Status: Resolved Resolution Date/Time: 12/03/20 @ 14:35 ANASTACIA STEWART MD Dec 07, 2020 09:55
[2020-12-07] MEDS ORDERED: D5 NS 1000 ML IV SOLUTION 1,000 ML IV SCH (11:30)
[2020-12-07] MEDS ORDERED: inSUlin ASPART (NovoLOG) 1 UNIT/0.01 ML (CHARGE PER UNIT) SC SCH (12:00)
[2020-12-07] MEDS ORDERED: BISACODYL 10 MG SUPP (DULCOLAX) PR PRN (14:00)
[2020-12-07] MEDS ORDERED: ONDANSETRON 4 MG/2 ML (SDV) Z0FRAN IVP PRN (14:00)
[2020-12-07] MEDS ORDERED: SALIVA STIMULANT MOUTH SPRAY (BIOTENE) 1.5 OZ MM PRN (14:00)
[2020-12-07] MEDS ORDERED: PROMETHAZINE INJ 25 MG/ML (PHENERGAN) AMP IVP PRN (14:00)
[2020-12-07] MEDS ORDERED: ACETAMINOPHEN 650 MG SUPP (TYLENOL) PR PRN (14:00)
[2020-12-07] MEDS ORDERED: GLYCOPYRROLATE 0.2 MG/ML (ROBINUL) 2 ML VIAL IV PRN (14:00)
[2020-12-07] MEDS ORDERED: ARTIFICAL TEARS 0.4 ML UNIT DOSE (REFRESH PLUS) OU PRN (14:00)
[2020-12-07] MEDS ORDERED: RT-ALBUTEROL/IPRATROPIUM 3 ML (DUONEB) VIAL INH PRN (14:00)
[2020-12-07] MEDS: morphine INJ 4 MG/ML 1 ML (VIAL/SYRINGE) IV PRN ×2 (14:16→15:57)
--- NOTE | 2020-12-07 14:20 | Cardiology Progress Note ---
Cardiology SOAP Progress Note Subjective: Intubated/ventilated. Objective: I&O/Vital Signs 12/07/20 12/07/20 12/07/20 12/07/20 03:00 04:00 04:00 04:00 Temp 37.2 Pulse 86 79 Resp 20 16 B/P (MAP) 120/61 (80) 118/56 (76) Pulse Ox 95 94 95 O2 Delivery Mechanical Ventilator Mechanical Ventilator Mechanical Ventilator O2 Flow Rate 25.00 25.00 FiO2 25 12/07/20 12/07/20 12/07/20 12/07/20 05:00 06:00 07:00 07:00 Pulse 79 67 79 77 Resp 16 16 18 B/P (MAP) 113/56 (75) 102/46 (64) 108/50 (69) Pulse Ox 94 94 96 O2 Delivery Mechanical Ventilator Mechanical Ventilator Mechanical Ventilator O2 Flow Rate 25.00 25.00 25.00 12/07/20 12/07/20 12/07/20 12/07/20 07:23 07:47 07:51 08:00 Temp 37.1 Pulse 75 82 Resp 17 16 B/P (MAP) 117/57 (77) Pulse Ox 96 95 O2 Delivery Mechanical Ventilator Mechanical Ventilator O2 Flow Rate 24.00 24.00 FiO2 24 12/07/20 12/07/20 12/07/20 12/07/20 08:00 08:27 09:00 10:00 Pulse 75 71 80 Resp 19 16 B/P (MAP) 111/50 116/56 (76) 118/53 (74) Pulse Ox 95 95 95 O2 Delivery Mechanical Ventilator Mechanical Ventilator Mechanical Ventilator O2 Flow Rate 24.00 24.00 FiO2 24 12/07/20 12/07/20 12/07/20 12/07/20 10:20 11:00 11:30 11:59 Temp 37.1 Pulse 68 82 Resp 15 17 B/P (MAP) 131/55 (80) Pulse Ox 95 95 94 O2 Delivery Mechanical Ventilator Mechanical Ventilator O2 Flow Rate 24.00 FiO2 24 24 12/07/20 12/07/20 12/07/20 12:00 12:42 13:00 Pulse 76 87 80 Resp 18 27 B/P (MAP) 121/55 (77) 139/64 (89) Pulse Ox 94 96 O2 Delivery Mechanical Ventilator Mechanical Ventilator O2 Flow Rate 24.00 24.00 12/07/20 00:00 Intake Total 410 ml Output Total 825 ml Balance -415 ml Constitutional: appears stated age; No apparent distress; well-developed, well- nourished, other (intubated/ventilated) Respiratory: crackles Cardiovascular: irregularly irregular, S1 and S2, systolic murmur Gastrointestional: soft; No spleenomegaly Extremities: pedal edema; No clubbing, No cyanosis, No significant edema Neurologic/Psychiatric: no motor/sensory deficits, alert, normal mood/affect, oriented x 3, power is 5/5 both on sides Skin: No rash, No ulcerations Results/Procedures: Labs Laboratory Tests 12/07/20 02:50: White Blood Count 4.5, Red Blood Count 3.59L, Hemoglobin 11.1L, Hematocrit 35, Mean Corpuscular Volume 97, Mean Corpuscular Hemoglobin 31, Mean Corpuscular Hemoglobin Concent 32, Red Cell Distribution Width 14.6H, Platelet Count 163, Mean Platelet Volume 11.3, Immature Granulocyte % (Auto) 0, Neutrophils (%) (Auto) 62, Lymphocytes (%) (Auto) 16, Monocytes (%) (Auto) 17H, Eosinophils (%) (Auto) 4, Basophils (%) (Auto) 1, Neutrophils # (Auto) 2.8, Lymphocytes # (Auto) 0.7L, Monocytes # (Auto) 0.8, Eosinophils # (Auto) 0.2, Basophils # (Auto) 0.0, Immature Granulocyte # (Auto) 0.0, Sodium Level 141, Potassium Level 3.9, Chloride Level 101, Carbon Dioxide Level 29, Anion Gap 11, Blood Urea Nitrogen 8, Creatinine 0.46L, Estimat Glomerular Filtration Rate > 60, BUN/Creatinine Ratio 17, Glucose Level 55*L, Calcium Level 7.8L, Phosphorus Level 2.8, Magnesium Level 1.8 12/07/20 03:45: Blood Gas Puncture Site LEFT RADIAL, Blood Gas Patient Temperature 37.2, Arterial Blood pH 7.46H, Arterial Blood Partial Pressure CO2 45, Arterial Blood Partial Pressure O2 75L, Arterial Blood HCO3 32H, Arterial Blood Total CO2 33.0H , Arterial Blood Oxygen Saturation 94, Arterial Blood Base Excess 7.6H, Trever Test ART LINE, Blood Gas Ventilator Setting YES, Blood Gas Inspired Oxygen 25% 12/07/20 04:40: Glucometer 123H 12/07/20 11:15: Glucometer 59*L Microbiology 12/04/20 Gram Stain - Final, Complete 12/04/20 Sputum Culture - Final, Complete No growth 12/01/20 Blood Culture - Final, Complete No growth 12/01/20 Urine Culture - Final, Complete NO GROWTH A/P: Assessment/Dx: shortness of breath, acute respiratory failure, likely multifactorial history of CHF, Mild elevation of troponin, AF, moderate to severe MR, moderate to severe , Pulmonary HTN Plan: Status post acute respiratory failure, acute pulmonary edema, was intubated and extubated recently, reintubated on December 04, 2020 due to acute respiratory failure and flash pulmonary edema. Currently ventilator dependent. Managed by primary care team. I am informed by the nurse that the family has decided to extubate the patient and if her respiratory status deteriorates, she will be m leigha comfort measures only. Congestive heart failure, echocardiogram was reported to have ejection fraction 55 to 65%, moderate to severe aortic stenosis, mitral regurgitation, severe pulmonary hypertension with PA pressure 80 to 85 mmHg. Continue with Lasix, previously aortic valve replacement was discussed with the patient's family. Atrial fibrillation, rate is controlled, having few episodes of tachycardia. Continue to monitor Mild elevation in troponin, probably type II myocardial infarction secondary to hypoxemia and respiratory failure. Continue to monitor, patient will need to have a cardiac catheterization done Moderate to severe aortic valve stenosis, consideration for referral for valve replacement, had a long discussion with the family, Dr. Patel spoke to her son and daughter regarding possible referral to a tertiary care center Severe pulmonary hypertension, probably secondary to COPD and left ventricular diastolic dysfunction with valvular heart disease with moderate to severe aortic stenosis Thank you for your consultation. Please call me if you have any questions. Adriano Ward MD, FACP, FACC, FSCAI, FHRS, CCDS Interventional Cardiology Cardiac Electrophysiology Vascular Medicine and Endovascular Interventions Focused Exam Lactate Level 12/04/20 21:10: Lactic Acid Level 1.64 Clinical Quality Measures Type of Care: Type of Care: Comfort Measures José Miguel WARD MD Dec 07, 2020 14:20
[2020-12-07] MEDS: LORazepam INJ 2 MG/ML (ATIVAN) VIAL IVP PRN (16:04)
[2020-12-07] MEDS ORDERED: ENOXAPARIN 60 MG/0.6 ML (LOVENOX) SYR SQ SCH (20:00)
[2020-12-08] MEDS: morphine INJ 4 MG/ML 1 ML (VIAL/SYRINGE) IV PRN ×10 (02:29→21:16)
--- NOTE | 2020-12-08 11:51 | Progress Note - Hospitalist ---
Subjective HPI/CC On Admission Date Seen by Provider: Dec 08, 2020 Time Seen by Provider: 10:05 Pt is an 85yoCF with a PMH of HTN who presented to the ER due to shortness of breath. She states she has been short of breath for a while but tries to not go to the doctor. Last night her daughter visited her and noticed how short of breath she was and brought her to the ER for evlauation. She was found to be quite hypoxic on arrivla with saats in the 70s. She was found to be in heart failure on CXR but has no past medical history of this. She was admitted to the ICU and was given lasix and states she is feeling much better today. She states she has been peeing a lot and feels better. 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 She is quite thin and she states she last 30 lbs a few years ago and has not been able to put it back on. Subjective/Events-last exam She appears comfortable. She was sleeping upon my arrival. She does awaken and responds yes and no to questions. She denies any pain. She says she does not need anything at this time .Her family is at the bedside and all questions and concerns were addressed. Objective Exam Vital Signs Vital Signs Date Time Temp Pulse Resp B/P (MAP) Pulse Ox O2 Delivery O2 Flow Rate FiO2 12/08/20 09:30 37.1 12/07/20 19:00 73 12/07/20 16:00 35 126/77 (93) 97 Nasal Cannula 2.00 12/07/20 11:59 24 Capillary Refill : Less Than 3 SecondsLess Than 3 Seconds General Appearance: No Apparent Distress, Chronically ill, Thin Respiratory: No Respiratory Distress, Decreased Breath Sounds Cardiovascular: Systolic Murmur, Irregularly Irregular, Tachycardia Gastrointestinal: Normal Bowel Sounds, Non Tender, Soft Extremity: Normal Inspection, No Pedal Edema Neurologic/Psychiatric: Alert, Motor Weakness Skin: Normal Color, Warm/Dry Results/Procedures Lab Patient resulted labs reviewed. Imaging: Reviewed Imaging Report Assessment/Plan Assessment and Plan Assess & Plan/Chief Complaint Comfort measures only status Moderate to severe aortic stenosis Acutely decompensated HFpEF New onset atrial fibrillation with RVR Acute hypoxic and hypercapnic respiratory failure Endotracheally intubated NSTEMI, type II Pulmonary hypertension Essential hypertension Pneumonia Family made the decision to pursue hospice/comfort care Comfort care order set in place DNR/DNI Palliative care consulted, appreciate assistance May need hospice placement Cardiogenic shock, resolved Acute pulmonary edema, resolved CO2 narcosis, resolved Critical Care Critically Ill Patient Diagnosis/Problems Diagnosis/Problems (1) Comfort measures only status Status: Acute (2) Acute respiratory failure Status: Acute Qualifiers: Respiratory failure complication: hypoxia and hypercapnia Qualified Codes: J96.01 - Acute respiratory failure with hypoxia; J96.02 - Acute respiratory failure with hypercapnia (3) NSTEMI (non-ST elevated myocardial infarction) Status: Acute (4) Atrial fibrillation Status: Acute Qualifiers: Atrial fibrillation type: paroxysmal Qualified Codes: I48.0 - Paroxysmal atrial fibrillation (5) New onset of congestive heart failure Status: Acute (6) Aortic stenosis Status: Acute (7) PNA (pneumonia) Status: Acute (8) Cardiogenic shock Status: Resolved Resolution Date/Time: 12/07/20 @ 09:55 (9) Endotracheally intubated Status: Acute (10) Paroxysmal atrial fibrillation with RVR Status: Resolved Resolution Date/Time: 12/07/20 @ 09:55 (11) CO2 narcosis Status: Resolved Resolution Date/Time: 12/03/20 @ 14:35 ANASTACIA STEWART MD Dec 08, 2020 11:51
[2020-12-08] MEDS: fentaNYL INJ 100 MCG/2 ML AMP IVP PRN (13:10)
[2020-12-08] MEDS: LORazepam INJ 2 MG/ML (ATIVAN) VIAL IVP PRN (21:16)
[2020-12-09] MEDS: morphine INJ 4 MG/ML 1 ML (VIAL/SYRINGE) IV PRN ×4 (05:20→22:49)
[2020-12-09] MEDS: LORazepam INJ 2 MG/ML (ATIVAN) VIAL IVP PRN ×3 (05:20→22:08)
--- NOTE | 2020-12-09 12:49 | Progress Note - Hospitalist ---
Subjective HPI/CC On Admission Date Seen by Provider: Dec 09, 2020 Time Seen by Provider: 12:47 Pt is an 85yoCF with a PMH of HTN who presented to the ER due to shortness of breath. She states she has been short of breath for a while but tries to not go to the doctor. Last night her daughter visited her and noticed how short of breath she was and brought her to the ER for evlauation. She was found to be quite hypoxic on arrivla with saats in the 70s. She was found to be in heart failure on CXR but has no past medical history of this. She was admitted to the ICU and was given lasix and states she is feeling much better today. She states she has been peeing a lot and feels better. 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 She is quite thin and she states she last 30 lbs a few years ago and has not been able to put it back on. Subjective/Events-last exam pt sleeping soundly. Daughter at bedside. No complaints. Discussed possible plan for DC to home with hospice to allow more family to be present. Objective Exam Vital Signs Vital Signs Date Time Temp Pulse Resp B/P (MAP) Pulse Ox O2 Delivery O2 Flow Rate FiO2 12/09/20 09:00 Nasal Cannula 12/09/20 07:18 1.50 12/08/20 13:45 37.1 12/07/20 19:00 73 12/07/20 16:00 35 126/77 (93) 97 12/07/20 11:59 24 Capillary Refill : Less Than 3 SecondsLess Than 3 Seconds General Appearance: No Apparent Distress, Chronically ill Respiratory: No Accessory Muscle Use, No Respiratory Distress Cardiovascular: Regular Rate, Rhythm, Systolic Murmur Results/Procedures Lab Patient resulted labs reviewed. Imaging: Reviewed Imaging Report Assessment/Plan Assessment and Plan Assess & Plan/Chief Complaint Comfort measures only status Moderate to severe aortic stenosis Acutely decompensated HFpEF New onset atrial fibrillation with RVR Acute hypoxic and hypercapnic respiratory failure Endotracheally intubated NSTEMI, type II Pulmonary hypertension Essential hypertension Pneumonia Family made the decision to pursue hospice/comfort care Comfort care order set in place DNR/DNI Palliative care consulted, appreciate assistance May need hospice placement, family will look in to agencies today Cardiogenic shock, resolved Acute pulmonary edema, resolved CO2 narcosis, resolved Critical Care Critically Ill Patient Diagnosis/Problems Diagnosis/Problems (1) Acute respiratory failure Status: Acute Qualifiers: Respiratory failure complication: hypoxia and hypercapnia Qualified Codes: J96.01 - Acute respiratory failure with hypoxia; J96.02 - Acute respiratory failure with hypercapnia (2) Essential (primary) hypertension Status: Chronic (3) NSTEMI (non-ST elevated myocardial infarction) Status: Acute (4) Atrial fibrillation Status: Acute Qualifiers: Atrial fibrillation type: paroxysmal Qualified Codes: I48.0 - Paroxysmal atrial fibrillation (5) Cachexia Status: Chronic (6) New onset of congestive heart failure Status: Acute (7) CO2 narcosis Status: Resolved Resolution Date/Time: 12/03/20 @ 14:35 MINERVA GEORGE MD Dec 09, 2020 12:49
[2020-12-09] MEDS: fentaNYL INJ 100 MCG/2 ML AMP IVP PRN (13:53)
[2020-12-10] MEDS: morphine INJ 4 MG/ML 1 ML (VIAL/SYRINGE) IV PRN ×4 (01:01→08:13)
[2020-12-10] MEDS: LORazepam INJ 2 MG/ML (ATIVAN) VIAL IVP PRN ×2 (03:44→08:13)
[2020-12-10] MEDS: CATHETER FLUSH 10 ML SYR IV PRN (08:01)
--- NOTE | 2020-12-10 09:38 | Progress Note - Hospitalist ---
Subjective HPI/CC On Admission Date Seen by Provider: Dec 10, 2020 Time Seen by Provider: 09:33 Pt is an 85yoCF with a PMH of HTN who presented to the ER due to shortness of breath. She states she has been short of breath for a while but tries to not go to the doctor. Last night her daughter visited her and noticed how short of breath she was and brought her to the ER for evlauation. She was found to be quite hypoxic on arrivla with saats in the 70s. She was found to be in heart failure on CXR but has no past medical history of this. She was admitted to the ICU and was given lasix and states she is feeling much better today. She states she has been peeing a lot and feels better. 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 She is quite thin and she states she last 30 lbs a few years ago and has not been able to put it back on. Subjective/Events-last exam Pt sleeping soundly. Does not wake up for me. Daughter at bedside. We discussed discharge planning and due to worry regarding emergency or jim en route to home will maintain in the hospital at least today to monitor for progression. Sats were 54% this morning when checked. Objective Exam Vital Signs Vital Signs Date Time Temp Pulse Resp B/P (MAP) Pulse Ox O2 Delivery O2 Flow Rate FiO2 12/09/20 21:50 Nasal Cannula 1.00 12/08/20 13:45 37.1 12/07/20 19:00 73 12/07/20 16:00 35 126/77 (93) 97 12/07/20 11:59 24 Capillary Refill : Less Than 3 SecondsLess Than 3 Seconds General Appearance: No Apparent Distress, Chronically ill Respiratory: No Accessory Muscle Use, No Respiratory Distress Results/Procedures Lab Patient resulted labs reviewed. Imaging: Reviewed Imaging Report Assessment/Plan Assessment and Plan Assess & Plan/Chief Complaint Comfort measures only status Moderate to severe aortic stenosis Acutely decompensated HFpEF New onset atrial fibrillation with RVR Acute hypoxic and hypercapnic respiratory failure Endotracheally intubated NSTEMI, type II Pulmonary hypertension Essential hypertension Pneumonia Comfort care order set in place DNR/DNI Palliative care consulted, appreciate assistance May need hospice placement, [facility] she survives to discharge Cardiogenic shock, resolved Acute pulmonary edema, resolved CO2 narcosis, resolved Critical Care Critically Ill Patient Diagnosis/Problems Diagnosis/Problems (1) Acute respiratory failure Status: Acute Qualifiers: Respiratory failure complication: hypoxia and hypercapnia Qualified Codes: J96.01 - Acute respiratory failure with hypoxia; J96.02 - Acute respiratory failure with hypercapnia (2) Essential (primary) hypertension Status: Chronic (3) NSTEMI (non-ST elevated myocardial infarction) Status: Acute (4) Atrial fibrillation Status: Acute Qualifiers: Atrial fibrillation type: paroxysmal Qualified Codes: I48.0 - Paroxysmal atrial fibrillation (5) Cachexia Status: Chronic (6) New onset of congestive heart failure Status: Acute (7) CO2 narcosis Status: Resolved Resolution Date/Time: 12/03/20 @ 14:35 MINERVA GEORGE MD Dec 10, 2020 09:38
[2020-12-10 10:50] VITALS: BP 126/77
== END 2020-12-10 13:02 | disposition expired ==
LOC: EDUNIT# 01:18 → ER 01:21 → ICU 03:29 → 4TH 16:44 → ICU 12-01 08:50 → 4TH 12-07 20:21
PROVIDERS: ADMIT Family Medicine; ATTEND Internal Medicine
PROC: 0BH18EZ Insertion of Endotracheal Airway into Trachea, Via Natural or Artificial Opening Endoscopic (ICD-10-PCS; 2020-12-01)
PROC: 5A1935Z Respiratory Ventilation, Less than 24 Consecutive Hours (ICD-10-PCS; 2020-12-01)
PROC: 5A09357 Assistance with Respiratory Ventilation, Less than 24 Consecutive Hours, Continuous Positive Airway Pressure (ICD-10-PCS; 2020-12-01)
PROC: 5A1945Z Respiratory Ventilation, 24-96 Consecutive Hours (ICD-10-PCS; principal; 2020-12-04)
DX: I11.0 Hypertensive heart disease with heart failure (principal); I50.31 Acute diastolic (congestive) heart failure; I21.A1 Myocardial infarction type 2; J18.9 Pneumonia, unspecified organism; J96.01 Acute respiratory failure with hypoxia; G93.41 Metabolic encephalopathy; E87.1 Hypo-osmolality and hyponatremia; N39.0 Urinary tract infection, site not specified; R64 Cachexia; R57.0 Cardiogenic shock; Z51.5 Encounter for palliative care; Z66 Do not resuscitate; E16.2 Hypoglycemia, unspecified; I95.9 Hypotension, unspecified; G51.0 Bell's palsy; Z68.21 Body mass index [BMI] 21.0-21.9, adult; I08.0 Rheumatic disorders of both mitral and aortic valves; I48.91 Unspecified atrial fibrillation; I49.3 Ventricular premature depolarization; I27.20 Pulmonary hypertension, unspecified; Z79.891 Long term (current) use of opiate analgesic; Z88.6 Allergy status to analgesic agent
CPT/HCPCS: 36415; 36569; 70450; 70496; 70498; 71045; 76937; 80048; 80053; 81000; 82550; 82553; 82805; 82962; 83605; 83735; 83880; 84100; 84145; 84478; 84484; 85007; 85025; 85027; 85379; 87040; 87070; 87077; 87081; 87088; 87186; 87205; 93005; 93306; 94002; 94003; 94640; 94660; 94664; 94799; 96374